=== PATIENT | male | born 1960 | race Caucasian/White ===

== ENCOUNTER 2018-04-05 10:03 | Emergency (ER) | payer MEDICAID, SELFPAY ==
[2018-04-05 10:04] VITALS: BP 157/93; PULSE 87; RESP 17; TEMP 36.4; O2SAT 99; BMI 21.3
--- NOTE | 2018-04-05 10:18 | ED.VISSUMM ---
- ER Visit Summary Date of Service: 04/05/18 Chief Complaint: Dental pain History of Present Illness: The patient is a 57 M who presents with right lower dental pain and swelling that has been getting worse over the past 3 weeks. Patient states she is swallowing purulent material. Patient states the pain radiates to his neck and right ear. Patient denies any fevers. Patient states he has been taking Tylenol and ibuprofen with minimal improvement of his pain. Patient does not have a dentist. Patient is concerned over possible infection. Physical Examination: Vital signs are stable. Patient is afebrile. Patient is in no acute distress. Oral mucosa is pink and moist. There is gingival edema over the right lower first molar area. There is no fluctuance. There is no discharge or drainage. Oropharynx is clear. Tympanic membranes are clear. Neck is supple. Trachea is midline. There is some mild anterior cervical lymphadenopathy noted. The remaining physical exam is within normal limits. Emergency Department Course and Treatment: Patient was given a prescription for Pen-Vee K. Patient was instructed to follow-up with a dentist and 5-7 days. Patient understood and was agreeable with the plan. All questions were answered. Disposition: Discharge home Impression: Infected dental caries This note was generated with [employer] dictation software. It may contain incorrect words, spelling, and punctuation that were not noted in review of the chart prior to signing ED Disposition - Plan for ED Patient: Disposition: Home or Assisted Living Chief Complaint: Dental Diagnosis: Infected dental caries Instructions: ED Abscess Dental Prescriptions: Penicillin V Potassium 500 mg PO 4X/DAY #40 tab Referrals: Christina Humphrey MD [Primary Care Provider] -
== END 2018-04-05 10:35 | disposition home or self-care (01) ==
PROVIDERS: Emergency Provider Emergency Medicine; Family Provider Family Medicine; PCP Family Medicine
DX: K02.9 Dental caries, unspecified (principal); K04.7 Periapical abscess without sinus; K08.89 Other specified disorders of teeth and supporting structures; Z72.0 Tobacco use
CPT/HCPCS: 99282

== ENCOUNTER 2018-04-10 07:23 | Emergency (ER) | payer MEDICAID, SELFPAY ==
[2018-04-10 07:25] VITALS: BP 146/101; PULSE 86; RESP 15; TEMP 36.8; O2SAT 99; BMI 21.2
--- NOTE | 2018-04-10 07:57 | ED.VISSUMM ---
- ER Visit Summary Date of Service: 04/10/18 Chief Complaint: Right-sided head pain, tingling, throat pain History of Present Illness: The patient is a 57 M who was seen on April 05 and diagnosed with dental infection. He was prescribed penicillin. He is not contacted his doctor or dentist. He believes his head pain and throat pain are secondary to failed therapy. He denies fever, chills night sweats. He localizes his head pain to the right parietal area and has associated tingling. He also complains of tingling of his right ear. He denies decreased hearing or ringing in his ears. He states he is having trouble swallowing however he denies drooling and has no change in voice. He denies inability to open or close his mouth completely. He denies photophobia, stiffness of his neck or neck pain. He denies having a rash. He denies having myalgias arthralgias or joint swelling. Physical Examination: Vital signs noted and blood pressure elevated 146/101. Head is atraumatic normocephalic. Pupils are equal round reactive. Extraocular muscles are intact. TMs are pearly white with landmarks noted. Nares patent with no drainage. Posterior pharynx without erythema or exudate. Uvula is midline. There is no dysphonia or dysphasia. Trachea is midline. There is no stridor with auscultation of the neck. There is no TMJ tenderness. There is no trismus. Posterior pharynx remarkable for postnasal drainage. He has significant dental pathology. There is no swelling of the jaw or face. There is no erythema. Heart is regular without murmur, gallop or rub. S1 and S2 are normal. Lungs are clear to auscultation with good movement of air bilaterally. Patient is alert and oriented ?3. Motor is 5 over 5. Sensory is intact. DTRs are symmetric with no clonus or Babinski sign. Cranial 2 through 12 are intact. Cerebellar testing is normal. There are no skin lesions or rash noted. Test Results: None Emergency Department Course and Treatment: Patient was told he needs to follow-up with a dentist regarding his dental symptoms. He was told he has a viral infection and this would need to run its course. Treatment Plan: Symptomatic Disposition: Discharged to home Impression: 1. Acute viral upper respiratory infection 2. Cephalgia 3. Odontalgia 4. Dental caries This note was generated with [employer] dictation software. It may contain incorrect words, spelling, and punctuation that were not noted in review of the chart prior to signing ED Disposition - Plan for ED Patient: Disposition: Home or Assisted Living Chief Complaint: Dental Instructions: ED Tooth Pain, ED URI Viral Referrals: Christina Humphrey MD [Primary Care Provider] - 10-14 Days if not better Additional Instructions: Recommend contacting [facility] or going to the clinic for your dental symptoms.
--- NOTE | 2018-04-10 08:02 | ED.DCSUM_ITS ---
- ER Visit Summary Date of Service: 04/10/18 Chief Complaint: Right-sided head pain, tingling, throat pain History of Present Illness: The patient is a 57 M who was seen on April 05 and diagnosed with dental infection. He was prescribed penicillin. He is not contacted his doctor or dentist. He believes his head pain and throat pain are secondary to failed therapy. He denies fever, chills night sweats. He localizes his head pain to the right parietal area and has associated tingling. He also complains of tingling of his right ear. He denies decreased hearing or ringing in his ears. He states he is having trouble swallowing however he denies drooling and has no change in voice. He denies inability to open or close his mouth completely. He denies photophobia, stiffness of his neck or neck pain. He denies having a rash. He denies having myalgias arthralgias or joint swelling. Physical Examination: Vital signs noted and blood pressure elevated 146/101. Head is atraumatic normocephalic. Pupils are equal round reactive. Extraocular muscles are intact. TMs are pearly white with landmarks noted. Nares patent with no drainage. Posterior pharynx without erythema or exudate. Uvula is midline. There is no dysphonia or dysphasia. Trachea is midline. There is no stridor with auscultation of the neck. There is no TMJ tenderness. There is no trismus. Posterior pharynx remarkable for postnasal drainage. He has significant dental pathology. There is no swelling of the jaw or face. There is no erythema. Heart is regular without murmur, gallop or rub. S1 and S2 are normal. Lungs are clear to auscultation with good movement of air bilaterally. Patient is alert and oriented ?3. Motor is 5 over 5. Sensory is intact. DTRs are symmetric with no clonus or Babinski sign. Cranial 2 through 12 are intact. Cerebellar testing is normal. There are no skin lesions or rash noted. Test Results: None Emergency Department Course and Treatment: Patient was told he needs to follow- up with a dentist regarding his dental symptoms. He was told he has a viral infection and this would need to run its course. Treatment Plan: Symptomatic Disposition: Discharged to home Impression: 1. Acute viral upper respiratory infection 2. Cephalgia 3. Odontalgia 4. Dental caries This note was generated with [employer] dictation software. It may contain incorrect words, spelling, and punctuation that were not noted in review of the chart prior to signing ED Disposition - Plan for ED Patient: Disposition: Home or Assisted Living Chief Complaint: Dental Instructions: ED Tooth Pain, ED URI Viral Referrals: Christina Humphrey MD [Primary Care Provider] - 10-14 Days if not better Additional Instructions: Recommend contacting [facility] clinic or going to the clinic for your dental symptoms.
== END 2018-04-10 08:12 | disposition home or self-care (01) ==
PROVIDERS: Emergency Provider Emergency Medicine; Family Provider Family Medicine; PCP Family Medicine
DX: J06.9 Acute upper respiratory infection, unspecified (principal); R51 Headache; H92.01 Otalgia, right ear; K02.9 Dental caries, unspecified; Z72.0 Tobacco use; Z79.2 Long term (current) use of antibiotics
CPT/HCPCS: 99282

== ENCOUNTER → 2018-04-13 15:23 | Outpatient (CLI) | payer MEDICAID, SELFPAY | PROVIDERS: Family Provider Internal Medicine; PCP Internal Medicine; Visit Provider Physician Assistant Surgical | DX: J02.9 Acute pharyngitis, unspecified (principal) | CPT/HCPCS: 87081 ==

== ENCOUNTER → 2018-05-17 12:54 | Outpatient (CLI) | payer MEDICAID, SELFPAY ==
--- NOTE | 2018-05-17 13:14 | CT_ITS ---
STUDY: CT CHEST/THORAX WITH CONTRAST REASON FOR EXAM: Male, 57 years old. Newly diagnosed malignant neoplasm of the tonsil, throat pain x 2 months, smokes 1/2-1 pack per day. RADIATION DOSAGE (If Supplied By Facility): CTDIvol = ( 12.88 ) mGy, DLP = ( 737.61 ) mGycm TECHNIQUE: Transaxial imaging was performed following intravenous administration of 100mL ml of Isovue 300 contrast material. Multiplanar coronal and sagittal images were reformatted. Individualized dose optimization techniques were used for this CT. COMPARISON: PA and lateral chest x-rays on 4 images October 31, 2016; CT chest with IV contrast September 14, 2016. FINDINGS: There are numerous subpleural blebs in the periphery of the lung apices. A few small emphysematous blebs or other pneumatoceles are also noted in the mid and upper lung zones. No pulmonary infiltrate or mass. There is no demonstrated pleural abnormality. Normal heart and pericardium. There are minor calcifications of the coronary arteries. There is a stable 2.45 x 1.4 x 0.95 cm precarinal lymph node as well as other stable upper normal to borderline enlarged lymph nodes in the subcarinal tissues and aorticopulmonary window. Normal hilar regions. Normal enhanced pulmonary arteries. There is atherosclerotic calcification of the aortic arch, proximal brachiocephalic arteries and, to a lesser degree, the descending thoracic aorta. Mild central depression of the superior aspect of the T7 vertebra is unchanged. There is no demonstrated abnormality of the visualized upper abdomen. CT/Chest WITH Contrast IMPRESSION: 1. No new pulmonary infiltrate or mass. Emphysematous and subpleural blebs are again noted. 2. Stable upper normal to borderline enlarged local mediastinal lymph nodes. No new adenopathy. 3. Atherosclerotic vascular calcifications again noted. 4. Stable central depression of the superior T7 vertebral endplate. Electronically Signed: Avery Martinez MD at 16:46 EDT , Service support ,
--- NOTE | 2018-05-17 13:14 | CT_ITS ---
STUDY: CT SOFT TISSUE NECK WITH CONTRAST REASON FOR EXAM: Male, 57 years old. Malignant neoplasm of the tonsil, throat pain x 2 months. RADIATION DOSAGE (If Supplied By Facility): CTDIvol = ( 12.88 ) mGy, DLP = ( 737.61 ) mGycm TECHNIQUE: The patient was scanned in a multi-detector CT scanner. High resolution transaxial imaging was performed following intravenous administration of 100mL ml of Isovue 300 contrast material. Sagittal and coronal images were reconstructed. Individualized dose optimization techniques were used for this CT. COMPARISON: None. FINDINGS: Normal bilateral parotid glands. Normal bilateral robotics mechanic spaces. Normal bilateral parapharyngeal spaces. There is atherosclerotic calcific plaquing of the visualized thoracic aortic arch and proximal brachiocephalic arteries. Atherosclerotic calcific plaquing with minor narrowing also seen at the right carotid artery bifurcation. Normal bilateral sublingual and submandibular glands and spaces. Normal visualized nasopharynx. Normal retropharyngeal space. Normal perivertebral space. The area of the right faucial tonsil is an irregular area of mildly enhancing, thickened tissue surrounding an irregular collection of fluid and gas bubbles that appears to communicate with the oropharynx. Overall, this measures roughly 5.15 x 2.5 x 2.8 cm. There is a mildly lobulated prominence of the tongue base, but without a discrete mass, suggestive of lymphoid hyperplasia. The visualized cervical lymph nodes (levels I-) are within normal size limits, and maintain normal morphology. There is no demonstrated solid or cystic mass lesion. There is no abnormal contrast enhancement. Normal epiglottis, bilateral vallecula and hypopharynx. The pre-epiglottic and paraglottic adipose spaces are normal. There is a 6.5 mm coarse calcification in the left cricoid cartilage. There is minimal asymmetric thickening of the right vocal cord. There is a dilated appearance of the right piriform sinus compared to the left. Normal subglottic trachea. Normal bilateral lobes of the thyroid gland. There are numerous subpleural blebs in the periphery of the visualized lung apices. Rounded area of mucoperiosteal thickening or sessile mucous inclusion cyst seen in the inferior margin of the right maxillary sinus. Just inferior to this, there is an absent right upper premolar with small gas lucency in the root pocket of the superior alveolar ridge that may reflect local inflammation. Numerous other teeth are also absent. There is multilevel degenerative changes of the cervical spine. CT/Soft Tissue Neck WITH Contrast IMPRESSION: 1. Irregular shaped collection of fluid and gas bubbles surrounded by thickened, mildly enhancing soft tissue in the area of the right faucial tonsil. This may reflect a necrotic malignancy, as per the patient's history, or tonsillar abscess that communicates with the oropharynx, and correlation with direct visualization is advised. 2. Asymmetric dilated appearance of the right piriform sinus compared to the left, likely chronic, and of uncertain etiology and significance. 3. Numerous absent teeth. Small gas lucency is seen in the pocket of a right upper premolar, possibly reflecting local inflammatory change, and there is mucoperiosteal thickening in the adjacent floor of the right maxillary sinus. 4. Atherosclerotic vascular calcifications. No significant stenosis of the carotid artery bifurcations. Electronically Signed: Avery Martinez MD at 16:06 EDT , Service support ,
[2018-05-17 13:44] LABS: Absolute Lymphocyte Count 1.57 X10^3/ul (0.83-4.51); Absolute Neutrophil Count 9.7 X10^3/uL (2.0-7.7); Basophil# 0.02 X10^3/uL; Basophil% 0.2 % (0-1); Eosinophil# 0.15 X10^3/uL; Eosinophils% 1.2 % (0-5); Hematocrit 37.8 % (40-54); Hemoglobin 12.5 g/dl (13.0-16.5); Lymphocyte # 1.57 X10^3/ul (4.0); Lymphocyte % 12.4 % (19-41); Mean Corp Hgb Conc 33.1 g/gl (32-36); Mean Corpuscular Volume 102.7 fL (80-94); Mean Platelet Vol. 9.6 fl (6.2-12.0); Monocyte# 1.21 X10^3/uL; Monocyte% 9.6 % (0-10); Neutrophil # 9.65 X10^3/uL (2.7-7.7); Neutrophil % 76.4 % (47-70); Platelet Count 341 K/mm3 (150-450); RBC Distribution Width CV 12.9 % (11.6-14.6); RBC Distribution Width SD 48.9 fl (35.1-43.9); Red Blood Count 3.68 M/mm3 (4.6-6.2); White Blood Count 12.6 K/mm3 (4.4-11.0)
[2018-05-17 13:45] LABS: POSITIVE COUNT NO; POSITIVE DIFFERENTIAL NO; POSITIVE MORPHOLOGY NO
[2018-05-17 14:15] LABS: Anion Gap 10 (5-15); BUN 14 mg/dL (7-18); BUN/Creat Ratio 14.2 RATIO (10-20); Calcium,Total 9.4 mg/dL (8.5-10.1); Chloride 102 mmol/L (98-107); Creatinine, Serum 0.98 mg/dL (0.70-1.30); EST Glomerular Filtration Rate 84 mL/min (>60); Est Glom Filt Rate - Afr Amer 101 mL/min (>60); Glucose 83 mg/dL (74-106); Potassium 3.9 mmol/L (3.5-5.1); Sodium Level 138 mmol/L (136-145)
== END ==
PROVIDERS: Family Provider Internal Medicine; PCP Internal Medicine; Referring Provider Otolaryngology; Visit Provider Otolaryngology
DX: C09.9 Malignant neoplasm of tonsil, unspecified (principal)
CPT/HCPCS: 36415; 70491; 71260; 80048; 85025; Q9967

== ENCOUNTER → 2018-05-18 13:18 | Outpatient (CLI) | payer MEDICAID, SELFPAY ==
--- NOTE | 2018-05-18 13:21 | EKG12_ITS ---
Test Reason : PRE-OP Blood Pressure : / mmHG Vent. Rate : 082 BPM Atrial Rate : 082 BPM P-R Int : 142 ms QRS Dur : 092 ms QT Int : 362 ms P-R-T Axes : 060 066 049 degrees QTc Int : 422 ms Normal sinus rhythm Normal ECG Confirmed by EZIO TEJADA ([id number]), food editor ALAINA ANDINO ([id number]) on 05/22/2018 9:09:11 AM Referred By: Crow Newsome Confirmed By:EZIO TEJADA
== END ==
PROVIDERS: Family Provider Internal Medicine; PCP Internal Medicine; Referring Provider Otolaryngology; Visit Provider Otolaryngology
DX: C09.9 Malignant neoplasm of tonsil, unspecified (principal)
CPT/HCPCS: 93005

== ENCOUNTER 2018-05-23 07:25 | Day surgery (SDC) | payer MEDICAID, SELFPAY ==
--- NOTE | 2018-05-23 | IMM_PTH ---
PATIENT: ANDREW STANFORD [place] [facility] [place][id number] AGE/SX: 57/M ROOM: RE05/23/[address]: Dr. Crow Newsome MD : 1960 BED: DIS: 05/23/2018 SPEC #: [id number] RECD: 05/25/18 13:50 STATUS: PABLO REQ #: [id number] ALEJANDRA: 05/23/18 00:[address]: Crow Newsome DEPT: IMMUNOHISTOCHEMISTRY RECD BY: Lidia Mckeon ENTERED: 05/25/18 13:52 SP TYPE: IMMUNO OTHR DR: Dr. Blayne Hernandez MD Tissues: C - Tonsil, NOS Procedures: CK5-6 (initial) CK14 (add) DESMIN (add) KI-67 (add) P16 (add) P40 (add) S-100 (add) PHYSICIAN & INSTITUTION [place] [id number] SPECIMEN INFORMATION: Tissue Source: C - Right radical tonsillectomy Clinical Info: Left tonsil mass Specimen Number: [id number] CPT code: 46014, 42080 x6 METHODOLOGY: Deparaffinized sections of prefer/formalin-fixed tissue or PAP/DQ stained slides are incubated with monoclonal/polyclonal antibodies/oligonucleotide probes. Localization is made via biotin free immunoperoxidase method. Appropriate controls are performed and reacted as expected. Results on target cell population are indicated in the following table: RESULTS: ANTIBODY / CLONE RESULT Block C1 P40 (BC28) positive CK5-6 (D5 & 1684) positive CK14 (LL002) positive S-100 (4C4.9) negative Desmin (CE-R-11) negative P16 (E6H4) negative Ki-67 (30-9) positive, moderate These tests were developed and their performance characteristics determined by [facility]. They may not have been cleared or approved by the U.S. Food and Drug Administration. The FDA has determined that such clearance or approval is not necessary. INTERPRETATION: C. 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 Case has been reviewed in consultation with Dr. Beaver who concurs with the above diagnosis. IDC:[email or web address] AM:brigida 05/30/18
[2018-05-23 07:56] VITALS: BP 102/72; PULSE 88; RESP 14; TEMP 37; O2SAT 97; BMI 20.6
--- NOTE | 2018-05-23 08:55 | TONS_PTH ---
PATIENT: ANDREW STANFORD LOC: [facility] – [place] U#:[id number] AGE/SX: 57/M ROOM: RE05/23/[address]: Dr. Crow Newsome MD : 1960 BED: DIS: 05/23/2018 SPEC #: [id number] RECD: 05/23/18 09:29 STATUS: PABLO CRISTINA #: [id number] ALEJANDRA: 05/23/18 08:[address]: Crow Newsome DEPT: SURGICAL PATHOLOGY RECD BY: Lidia Mckeon ENTERED: 05/23/18 11:30 SP TYPE: TONSILS OTHR DR: Dr. Blayne Hernandez MD Tissues: A - Tonsil, NOS B - Tonsil, NOS C - Tonsil, NOS Procedures: Frozen Section (charge) Surgery Specimen Level III Surgery Specimen Level IV HEADER OPERATION: Tonsillectomy PRE-OP DIAGNOSIS: Left tonsil mass TISSUE SUBMITTED: A - Right tonsil mass for frozen section at 0924, B - Left tonsil, C - Right radical tonsillectomy FROZEN SECTION DIAGNOSIS A. Right tonsil mass, biopsy: Invasive squamous cell carcinoma. AM:brigida 05/23/18 MICROSCOPIC DIAGNOSIS A. Right tonsil mass, biopsy: Invasive moderate to poorly squamous cell carcinoma. B. Left tonsil, tonsillectomy: Benign lymphoid follicular hyperplasia, mild. No evidence of malignancy. C. Right tonsil, radical tonsillectomy: Invasive moderate to poorly squamous cell carcinoma with mucosal ulceration. See Comment. AM:brigida 05/25/18 COMMENT C. Immunohistochemistry ([id number]) supports the above diagnosis. The carcinoma extends to the inked superior, inferior and posterior margins of excision. There is multifocal perineural invasion by carcinoma and the carcinoma focally involves skeletal muscle tissue. Case has been reviewed in consultation with Dr. Beaver who concurs with the above diagnosis. IDC:SJ MICROSCOPIC DESCRIPTION Slides are reviewed. GROSS DESCRIPTION A - Received fresh for frozen section consultation labeled with the patient's name is a specimen designated right tonsil mass. The specimen consists of a single fragment of pink-wooten soft tissue measuring 0.6 x 0.2 x 0.2 cm. The specimen is totally submitted in one block for frozen section consultation. / AM:brigida 05/23/18 B - Received in formalin labeled with the patient's name and designated left tonsil. The specimen consists of a tonsil that weighs 1.5 gm and measures 3 x 1.5 x 1 cm. The external surface is pink-wooten, smooth, glistening and somewhat lobulated. Focally it is hemorrhagic, granular and bears cautery artifact. Serial cross sections through the tonsil reveal normal tonsillar architecture. The entire specimen is submitted in two cassettes. / SJ: 05/23/18 C - Received in formalin labeled with the patient's name and designated right radical tonsillectomy. The specimen consists of a tonsil measuring 6 x 4 x 2.5 cm and weighing 18 gm. The specimen is differentially inked as follows: superior - blue, inferior - green and posterior - black. The specimen had previously been bisected by the surgeon. The cut surfaces are firm, wooten-white in color. The specimen is serially sectioned and submitted in its entirety in ten cassettes. / AM: 05/24/18 TC: 0 CPT: 80204 x2, 39710, 53142, 77523
--- NOTE | 2018-05-23 10:04 | OP.PCM_ITS ---
Problem List (1) Malignant neoplasm of tonsil Status: Chronic Report of Operation Date of Procedure: 05/23/18 Pre-Operative Diagnosis: Malignant tumor of right tonsil Post-Operative Diagnosis: same Surgery/Procedure Performed:: Radical right tonsillectomy, left tonsillectomy Description of Surgical Findings:: Tray is a 57-year-old male who presents with a large ulcerated painful lesion of the right tonsil. He suffered referred otalgia on that side and foul- smelling quality with discharge. Examination showed a large ulcerated lesion of the right tonsil and CT scan confirmed a eroding mass involving the right tonsil that extended deeply into the surrounding parapharyngeal musculature. Operative investigation with biopsy and radical tonsillectomy was offered for both identification and treatment and the patient was eager to proceed. The risks, alternatives, potential benefits, and complications were discussed at length and any questions answered to the patient and/or caregiver's satisfaction. Witnessed informed consent was obtained in the office, and the patient and/or caregiver was agreeable to proceed. Procedure went as follows: The patient was identified in the preoperative holding, brought to the operating room, was placed under general anesthesia and intubated. When appropriate anesthesia was obtained, the head of bed was rotated and the patient prepped and draped in usual sterile fashion. A Jaqueline Abdirahman mouthgag was then placed and the patient suspended from the Akers stand. The oral cavity examined and is noted to have 2+ cryptic tonsillar hypertrophy on the left side. On the right side, the tonsil was involved with a large ulcerating indurated lesion. This lesion extended inferiorly to the lingual tonsils and tongue base and superiorly into the nasopharynx. This appeared to spare the eustachian tube opening. Palpation revealed this to be affixed to the pharyngeal musculature however did not appear to extend deeply into the perivascular sheath. Beginning on the left side the right tonsil was then grasped with a curved tenaculum and dissected from the underlying capsule with monopolar cautery. This was then sent as specimen. A radical tonsillectomy was then carried out on the right side after biopsy of the lesion confirmed invasive squamous cell carcinoma. The edge of the palpable mass was then grasped at the midportion and using monopolar cautery a plane developed between the tumor and the deeper pharyngeal tissues. This was followed superiorly where the lateral aspect of the soft palate extending into the nasopharynx involved with the lesion were then excised. The mass was then developed inferiorly along the parapharyngeal plane and excised along the posterior pharyngeal wall and extending onto the tongue base where this was additionally resected. This was then sent as pathologic specimen. The deep and middle portion of the tumor invaded into the pharyngeal fatty tissues which limited development of a wide surgical margin with suspected residual disease at this location although all visible tumor was resected with the primary specimen. The carotid artery was not exposed during the course of the dissection and no residual flap was felt to be necessary. The oral cavity was then copiously irrigated with saline solution and suctioned to clear any residual blood and debris. Inspection of the surgical excision site revealed no point bleeding. The patient was then returned to anesthesia, revived and extubated having tolerated the procedure well. Type of Anesthesia:: General Anesthesiologist: Floyd Richardson Special Medications: none Specimen's removed: right tonsillar mass with radical tonsillectomy, left tonsil Drains: none Estimated Blood Loss (mL): 25 mL Fluids Replaced: 1200 mL Grafts/Implants Used: none - Complications none - Admit VTE Documentation VTE Present on Admission: No VTE Mechan Device Prophylaxis: SCD's VTE Pharm Prophylaxis ordered?: No
--- NOTE | 2018-05-23 10:07 | DCINST_ITS ---
Discharge Activity: Return to Normal Activity, May not drive while taking narcotic pain medications. Call your doctor if your incision/area has: Sudden Increased Bleeding Call your doctor if you observe: Fever of 101 or Higher, Uncontrolled pain Allergies/Adverse Reactions: Allergies bee venom protein (honey bee) Allergy (Verified 05/21/18 16:12) Angioedema Medications to take at Discharge omega-3 fatty acids 1,000 mg capsule 1,000 mg PO DAILY 04/13/18 Acetaminophen [Tylenol Extra Strength] 500 - 1,000 mg PO 4X/DAY 05/21/18 Aspirin/Acetaminophen/Caffeine [Headache Relief Tablet] 1 each PO PRN PRN 05/21/18 Orders to be completed after discharge: 12 Lead EKG [[facility]] Time Frame: 05/23/18, Location: None Selected Primary Care Physician: Blayne Hernandez MD [Primary Care Provider] - Test Results: Test results from this visit will be discussed in further detail at your follow- up appointment, if applicable. Please Follow Up With: Crow Newsome MD When: 2 weeks
[2018-05-23 10:10] VITALS: BP 102/72; BP 145/67; PULSE 79; RESP 16; TEMP 36.5; O2SAT 100
[2018-05-23 10:15] VITALS: BP 102/72; BP 149/89; PULSE 75; RESP 18; O2SAT 99
[2018-05-23 10:31] VITALS: BP 102/72; BP 153/90; PULSE 75; RESP 18; TEMP 36.6; O2SAT 100
[2018-05-23] MEDS: Ibuprofen 100 MG/5 ML UDC 400 MG PO (10:49)
[2018-05-23] MEDS: Acetaminophen 650 MG/20 ML UDC 500 MG PO (10:49)
[2018-05-23 12:23] VITALS: BP 102/72; BP 127/80; PULSE 76; RESP 16; TEMP 37; O2SAT 99
== END 2018-05-23 12:29 | disposition home or self-care (01) ==
LOC: SDC 07:27 → AC 07:27
PROVIDERS: Family Provider Internal Medicine; PCP Internal Medicine; Referring Provider Otolaryngology; Visit Provider Otolaryngology
PROC: (CPT 42826; principal; 2018-05-23 08:40)
DX: C09.8 Malignant neoplasm of overlapping sites of tonsil (principal); J35.1 Hypertrophy of tonsils; R59.0 Localized enlarged lymph nodes; F17.200 Nicotine dependence, unspecified, uncomplicated
CPT/HCPCS: 00170; 42826; 42842; 88304; 88305; 88331; 88341; 88342; J7120; J2405

== ENCOUNTER 2018-05-29 01:21 | Observation (INO) | payer MEDICAID, SELFPAY ==
[2018-05-29 01:22] VITALS: BP 119/74; PULSE 90; RESP 18; TEMP 36.6; O2SAT 98; BMI 19.9
[2018-05-29 02:01] LABS: Absolute Lymphocyte Count 1.44 X10^3/ul (0.83-4.51); Absolute Neutrophil Count 5.2 X10^3/uL (2.0-7.7); Basophil# 0.02 X10^3/uL; Basophil% 0.3 % (0-1); Eosinophil# 0.31 X10^3/uL; Eosinophils% 3.9 % (0-5); Hematocrit 35.5 % (40-54); Hemoglobin 11.8 g/dl (13.0-16.5); Lymphocyte # 1.44 X10^3/ul (4.0); Lymphocyte % 18.1 % (19-41); Mean Corp Hgb Conc 33.2 g/gl (32-36); Mean Corpuscular Hgb 33.5 pg (27.0-32.0); Mean Corpuscular Volume 100.9 fL (80-94); Mean Platelet Vol. 9.4 fl (6.2-12.0); Monocyte# 0.99 X10^3/uL; Monocyte% 12.4 % (0-10); Neutrophil % 65.2 % (47-70); POSITIVE COUNT NO; POSITIVE DIFFERENTIAL NO; POSITIVE MORPHOLOGY NO; Platelet Count 367 K/mm3 (150-450); RBC Distribution Width CV 12.4 % (11.6-14.6); RBC Distribution Width SD 45.6 fl (35.1-43.9); Red Blood Count 3.52 M/mm3 (4.6-6.2)
[2018-05-29 02:10] LABS: International Normalized Ratio 1.1; Prothrombin Time (Protime)PT. 13.8 SECONDS (11.7-14.9)
[2018-05-29 02:11] LABS: Partial Thromboplast Time 33.8 Seconds (24.1-36.2)
[2018-05-29 02:16] LABS: Anion Gap 9 (5-15); BUN 21 mg/dL (7-18); BUN/Creat Ratio 24.8 RATIO (10-20); Chloride 102 mmol/L (98-107); Creatinine, Serum 0.85 mg/dL (0.70-1.30); EST Glomerular Filtration Rate 100 mL/min (>60); Est Glom Filt Rate - Afr Amer 120 mL/min (>60); Estimated Creatinine Clearance 85.14 ml/min; Glucose 85 mg/dL (74-106); Potassium 3.7 mmol/L (3.5-5.1); Sodium Level 138 mmol/L (136-145)
[2018-05-29 02:53] VITALS: BMI 19.1; BMI 19.3
[2018-05-29 03:22] VITALS: BP 139/73; PULSE 77; RESP 18; TEMP 36.3; O2SAT 100
--- NOTE | 2018-05-29 07:49 | HP.PCM_ITS ---
Problem List (1) Malignant neoplasm of tonsil Status: Chronic (2) Oropharyngeal bleeding Status: Acute History of Present Illness Date of Admission: 05/29/18 Chief Complaint: bleeding from throat after radical tonsillectomy The patient is a 57 year old M who presents 1 week status post 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 He had been seen in the office one day prior with complaints of some blood-tinged sputum however no active bleeding, clot, or other significant abnormality was noted although there was some bloody staining of the secretions this was of no significant juliana ntity and reassurance was offered. He presented to the emergency department with complaints of again bleeding from the oropharynx. With consultation with the ER physician, the bleeding was not felt to be of a severe quantity although some blood clotting was expectorated and admission for observation with consideration of operative control of hemorrhage should this persist was advised and he was admitted for overnight observation. He reports that he continues to suffer throat pain although this is improving. He continues to have dysphagia for solids but has been tolerating liquids. He denies any trauma to the throat, bleeding tendencies, or anticoagulation therapy. He had otherwise been in his usual state of health. [] Past Medical History Past Medical History (Chronic Problems): Chronic Problems (Last Updated 04/13/18 @ 11:01 by Melissa Snell) Malignant neoplasm of tonsil (Chronic) Medical History: Medical History (Last Updated 04/13/18 @ 11:01 by Melissa Snell) Asthma J45.909 Migraines G43.909 HTN (hypertension) I10 Allergies bee venom protein (honey bee) Allergy (Verified 05/29/18 01:22) Angioedema Home Medications: Ambulatory Orders Medication Instructions Recorded RX: Aspirin/Acetaminophen/Caffeine 1 each PO PRN PRN 05/21/18 [Headache Relief Tablet] RX: Acetaminophen Liquid [Tylenol 500 mg PO Q4H PRN PRN udc 05/23/18 Liquid] RX: Ibuprofen Liquid [Motrin 400 mg PO Q8H PRN PRN udc 05/23/18 Liquid] Acetaminophen/Codeine Liquid 12.5 ml PO Q4H PRN PRN 05/29/18 [Tylenol W/Cod Liq 300-30MG/12.5ML] Surgical History: Surgical History (Last Updated 04/25/18 @ 15:36 by Nava Francis) History of hand surgery Z98.890 Hx of foot surgery Z98.890 Smoking Status: Current every day smoker Tobacco Use: Cigarettes Review of Systems Constitutional: Reports: Anorexia. Denies: Fever, Night Sweats Eyes: Denies: Double vision, Redness, Vision Change HEENT: Reports: Difficulty Swallowing, Sore Throat. Denies: Difficulty Hearing, Hearing Changes, Nasal bleeding Cardiovascular: Denies: Chest Pain, Claudication Respiratory: Reports: Hemoptysis. Denies: Cough Gastrointestinal: Denies: Abdominal Pain Genitourinary: Denies: Dysuria VTE Information - Inpt Only VTE Present on Admission: No VTE Pharm Prophylaxis ordered?: No Reason prophylaxis not ordered:: Medical Contraindication - bleeding Patient Problems: Active and Suspected Problems (Last Updated 04/13/18 @ 11:01 by Melissa Snell) Oropharyngeal bleeding (Acute) - Physical Exam General: Alert, Oriented x3 HEENT: Atraumatic, PERRLA Oral: Moist Mucosa, - - eshcar bilateral tonsillar fossa, blood clot on right reported by ED Neck: Supple Psych/Mental Status: Alert and oriented to time, place, person, mood and affect Vital Signs Temp Pulse Resp BP Pulse Ox 97.4 F L 77 18 139/73 H 100 05/29/18 03:22 05/29/18 03:22 05/29/18 03:22 05/29/18 03:22 05/29/18 03:22 Oxygen Delivery Method Room Air Weight: 58.8 kg Body Mass Index (BMI) 19.1 Finger Stick Blood Glucose 108 Intake and Output for Last 24 Hours 05/27/18 05/28/18 05/29/18 23:59 23:59 23:59 Intake Total 240 / 240 Balance 240 / 240 Laboratory Tests Past 24 Hrs 05/29/18 05/29/18 05/29/18 01:50 01:50 01:50 WBC 8.0 RBC 3.52 L Hgb 11.8 L Hct 35.5 L MCV 100.9 H MCH 33.5 H MCHC 33.2 RDW 12.4 RDW Differential 45.6 H Plt Count 367 MPV 9.4 Immature Gran % (Auto) 0.100 Neut % (Auto) 65.2 Lymph % (Auto) 18.1 L [place] % (Auto) 12.4 H Eos % (Auto) 3.9 Baso % (Auto) 0.3 Absolute Neuts (auto) 5.2 Absolute Lymphs (auto) 1.44 Total Counted Not Reportable PT 13.8 INR 1.1 APTT 33.8 Sodium 138 Potassium 3.7 Chloride 102 Carbon Dioxide 27.0 Anion Gap 9 BUN 21 H Creatinine 0.85 Estim Creat Clear Calc 85.14 Est GFR (MDRD) Af Amer 120 Est GFR (MDRD) Non-Af 100 BUN/Creatinine Ratio 24.8 H Glucose 85 Calcium 9.0 Assessment/Plan All Active Problems (Last Updated 04/13/18 @ 11:01 by Melissa Snell) Oropharyngeal bleeding (Acute) Painful swallowing (Acute) Pharyngitis, acute (Acute) Infected dental caries (Acute) Right foot pain (Acute) Arthritis of foot, right (Acute) Displaced fracture of calcaneus (Acute) Tray is a 57-year-old male status post tonsillectomy for squamous cell carcin jann who has a second presentation for complaints of oropharyngeal bleeding. He was admitted for observation with consideration of operative control of bleeding should this persist as well as IV hydration and monitoring.
--- NOTE | 2018-05-29 07:51 | PCM.PROGNOTE ---
Patient Problems: Active and Suspected Problems (Last Updated 04/13/18 @ 11:01 by Melissa Snell) Oropharyngeal bleeding (Acute) Subjective: The patient reports he continues to suffer throat with sore throat however has had no further bleeding overnight with observation. He reports that he expectorated blood clots for about 1 hour in the candy maker helper but this is not continued and is tolerating clear liquids satisfactorily. Objective: The patient is well-appearing with moist mucous membranes. His skin turgor is normal. Examination oropharynx shows tonsillar fossa with a sharp but no active bleeding, blood staining, or clots. He does have a bedside container which does not have any significant bloody expectorated contents. He expresses desire for discharge to home. - Physical Exam General: Alert, Oriented x3 HEENT: Atraumatic, PERRLA Oral: Moist Mucosa, - - Tonsillar eschar present without bleeding or blood clots Lungs: Clear to auscultation Cardiovascular: Regular rate, Regular Rhythm Skin: No rashes, No breakdown Psych/Mental Status: Alert and oriented to time, place, person, mood and affect Vital Signs Temp Pulse Resp BP Pulse Ox 97.4 F L 77 18 139/73 H 100 05/29/18 03:22 05/29/18 03:22 05/29/18 03:22 05/29/18 03:22 05/29/18 03:22 Oxygen Delivery Method Room Air Weight: 58.8 kg Body Mass Index (BMI) 19.1 Finger Stick Blood Glucose 108 Intake and Output for Last 24 Hours 05/27/18 05/28/18 05/29/18 23:59 23:59 23:59 Intake Total 240 / 240 Balance 240 / 240 Laboratory Tests Past 24 Hrs 05/29/18 05/29/18 05/29/18 01:50 01:50 01:50 WBC 8.0 RBC 3.52 L Hgb 11.8 L Hct 35.5 L MCV 100.9 H MCH 33.5 H MCHC 33.2 RDW 12.4 RDW Differential 45.6 H Plt Count 367 MPV 9.4 Immature Gran % (Auto) 0.100 Neut % (Auto) 65.2 Lymph % (Auto) 18.1 L [place] % (Auto) 12.4 H Eos % (Auto) 3.9 Baso % (Auto) 0.3 Absolute Neuts (auto) 5.2 Absolute Lymphs (auto) 1.44 Total Counted Not Reportable PT 13.8 INR 1.1 APTT 33.8 Sodium 138 Potassium 3.7 Chloride 102 Carbon Dioxide 27.0 Anion Gap 9 BUN 21 H Creatinine 0.85 Estim Creat Clear Calc 85.14 Est GFR (MDRD) Af Amer 120 Est GFR (MDRD) Non-Af 100 BUN/Creatinine Ratio 24.8 H Glucose 85 Calcium 9.0 Medical Necessity - Tobacco Use Smoking Status: Current every day smoker Tobacco Use: Cigarettes Assessment/Plan All Active Problems (Last Updated 04/13/18 @ 11:01 by Melissa Snell) Oropharyngeal bleeding (Acute) Painful swallowing (Acute) Pharyngitis, acute (Acute) Infected dental caries (Acute) Right foot pain (Acute) Arthritis of foot, right (Acute) Displaced fracture of calcaneus (Acute) Tray presents for repeat assessment of complaints of oropharyngeal bleeding. This appears to subsided without surgical intervention. I see no evidence of further bleeding nor do I see any blood clot to suggest threatened future bleeding. We have discussed that he remains at risk for bleeding as this heals particularly given the extensive nature of his surgical resection and his malignancy. He desires to go home although I have offered him observation over the day to ensure complete resolution of bleeding. As he is aware of this risk and has been prompting presentation for complaints of bleeding I am agreeable to discharge and he will return should he have any further bleeding again for consideration of operative treatment.
--- NOTE | 2018-05-29 07:55 | DCINST_ITS ---
- Discharge Diagnoses Current Active Problems: Current Active and Chronic Problems (Last Updated 04/13/18 @ 11:01 by Melissa Snell) Oropharyngeal bleeding (Acute) Your food should be the consistency of: Mechanical soft (ground) Your liquids should be the consistency of: Regular/Thin Discharge Activity: Return to Normal Activity, May not drive while taking narcotic pain medications. Call your doctor if your incision/area has: Sudden Increased Bleeding Call your doctor if you observe: Fever of 101 or Higher, Uncontrolled pain Allergies/Adverse Reactions: Allergies bee venom protein (honey bee) Allergy (Verified 05/29/18 01:22) Angioedema Medications to take at Discharge Aspirin/Acetaminophen/Caffeine [Headache Relief Tablet] 1 each PO PRN PRN 05/21/18 Acetaminophen Liquid [Tylenol Liquid] 500 mg PO Q4H PRN PRN udc 05/23/18 Ibuprofen Liquid [Motrin Liquid] 400 mg PO Q8H PRN PRN udc 05/23/18 Acetaminophen/Codeine Liquid [Tylenol W/Cod Liq 300-30MG/12.5ML] 12.5 ml PO Q4H PRN PRN 05/29/18 Primary Care Physician: Blayne Hernandez MD [Primary Care Provider] - Test Results: Test results from this visit will be discussed in further detail at your follow- up appointment, if applicable. Please Follow Up With: Crow Newsome MD When: 1 week
--- NOTE | 2018-05-29 08:15 | ED.DCSUM_ITS ---
- ER Visit Summary Date of Service: 05/29/18 Chief Complaint: Postoperative bleeding History of Present Illness: The patient is a 57 M presenting for evaluation secondary to postoperative bleeding. Patient had a tonsillectomy and cancerous tumor removed on Monday. Patient states over the course of the weekend he started to have bleeding issues. He reports that he has had a gradual increase in bleeding since yesterday. He states he was seen by his surgeon yesterday, and was recommended to continue conservative management. Tonight patient states that every time he is laying flat he is coughing up a large clots. Patient does endorse that he is feeling somewhat lightheaded associated with this. He is not on any sort of anticoagulants. Physical Examination: Vital signs within normal limits. Cachectic appearing male not in physiologic distress, but perpetually spitting up and/or coughing up blood. Oral exam shows clots that seem to be predominantly on the left side of the patient's oropharynx with postoperative changes noted. Remainder the physical otherwise unremarkable. Test Results: CBC chemistry and coagulation panels are pending Emergency Department Course and Treatment: Patient presented for evaluation secondary to postoperative bleeding. I discussed patient's case with his surgeon, and the patient currently is not at risk for airway compromise but is spitting up large clots and we do feel that the patient likely requires admission for observation and will be taken to the operating room for cautery in the morning. She was admitted under Dr. Newsome. Disposition: Admission Impression: 1. Postoperative bleeding This note was generated with [employer] dictation software. It may contain incorrect words, spelling, and punctuation that were not noted in review of the chart prior to signing ED Disposition - Plan for ED Patient: Disposition: Acute Care [facility] Chief Complaint: Other, Pain/Inj
[2018-05-29 08:19] VITALS: O2SAT 98
[2018-05-29 08:28] VITALS: BP 109/76; PULSE 98; RESP 20; TEMP 36.7; O2SAT 100
== END 2018-05-29 08:00 | disposition home or self-care (01) ==
LOC: ED 01:43 → MS3 02:29
PROVIDERS: Admitting Provider Otolaryngology; Emergency Provider Emergency Medicine; Family Provider Internal Medicine; PCP Internal Medicine; Visit Provider Otolaryngology
DX: K91.840 Postprocedural hemorrhage of a digestive system organ or structure following a digestive system procedure (principal); Y83.8 Other surgical procedures as the cause of abnormal reaction of the patient, or of later complication, without mention of misadventure at the time of the procedure; C09.9 Malignant neoplasm of tonsil, unspecified; I10 Essential (primary) hypertension; J45.909 Unspecified asthma, uncomplicated; G43.909 Migraine, unspecified, not intractable, without status migrainosus; F17.210 Nicotine dependence, cigarettes, uncomplicated; R64 Cachexia; Z68.1 Body mass index [BMI] 19.9 or less, adult
CPT/HCPCS: 80048; 85025; 85610; 85730; 99218; 99283; 99406; A4216; G0378

== ENCOUNTER 2018-06-20 05:39 | Day surgery (SDC) | payer MEDICAID, SELFPAY ==
[2018-06-12 10:03] VITALS: BMI 20.7
[2018-06-18 14:23] VITALS: BMI 19.8
[2018-06-20] VITALS (7 sets, daily range): BP systolic 120–130; BP diastolic 71–89; PULSE 64–86; RESP 14–16; TEMP 35.8–36.9; O2SAT 99–100
--- NOTE | 2018-06-20 | IMM_PTH ---
PATIENT: ANDREW STANFORD LOC: EN U#:[id number] AGE/SX: 58/M ROOM: RE06/20/[address]: Dr. Sarthak Alicea MD : 1960 BED: DIS: 06/20/2018 SPEC #: [id number] RECD: 06/21/18 12:11 STATUS: PABLO REMarta #: [id number] ALEJANDRA: 06/20/18 00:[address]: Sarthak Alicea DEPT: IMMUNOHISTOCHEMISTRY RECD BY: Lidia Mckeon ENTERED: 06/21/18 12:12 SP TYPE: IMMUNO OTHR DR: Dr. Blayne Hernandez MD Tissues: A - Stomach, NOS Procedures: H Pylori (initial) PHYSICIAN & INSTITUTION [place] [id number] SPECIMEN INFORMATION: Tissue Source: A - Antral biopsy Clinical Info: Malignant neoplasm of tonsil Specimen Number: [id number] CPT code: 48408 METHODOLOGY: Deparaffinized sections of prefer/formalin-fixed tissue or PAP/DQ stained slides are incubated with monoclonal/polyclonal antibodies/oligonucleotide probes. Localization is made via biotin free immunoperoxidase method. Appropriate controls are performed and reacted as expected. Results on target cell population are indicated in the following table: RESULTS: ANTIBODY / CLONE RESULT Block A H Pylori (polyclonal) negative These tests were developed and their performance characteristics determined by [facility]. They may not have been cleared or approved by the U.S. Food and Drug Administration. The FDA has determined that such clearance or approval is not necessary. INTERPRETATION: A. Antral biopsy: Negative for Helicobacter pylori organisms. SJ:brigida 06/21/18
[2018-06-20] MEDS: Cefazolin 2 GM in 0.9% Normal Saline 100 ML IV (07:17)
--- NOTE | 2018-06-20 07:30 | EGD_PTH ---
PATIENT: ANDREW STANFORD LOC: EN U#:[id number] AGE/SX: 58/M ROOM: RE06/20/[address]: Dr. Sarthak Alicea MD : 1960 BED: DIS: 06/20/2018 SPEC #: [id number] RECD: 06/20/18 08:55 STATUS: PABLO CRISTINA #: [id number] ALEJANDRA: 06/20/18 07:[address]: Sarthak Alicea DEPT: SURGICAL PATHOLOGY RECD BY: Isa Ward ENTERED: 06/20/18 11:15 SP TYPE: EGD BIOPSY OT DR: Dr. Blayne Hernandez MD Tissues: A - Gastric mucous membrane B - Esophageal mucous membrane Procedures: Surgery Specimen Level II Surgery Specimen Level IV Alcian Blue/PAS (control) HEADER OPERATION: Insertion, vascular Port/PEG tube placement PRE-OP DIAGNOSIS: Malignant neoplasm of tonsil TISSUE SUBMITTED: A. Antral biopsy, B. Distal esophageal biopsy MICROSCOPIC DIAGNOSIS A. Antral biopsy: Mild gastritis. B. Distal esophageal biopsy: Fragments of gastric mucosa with intestinal metaplasia (goblet cell metaplasia) consistent with Stein's esophagus. Focal acute and chronic inflammation. Negative for dysplasia. See comment. SJ:rg 06/21/18 COMMENT A. The results of immunohistochemistry for Helicobacter pylori will be reported separately ([id number]). B. Alcian blue/PAS stain with matched control is used in the evaluation of the specimen. MICROSCOPIC DESCRIPTION Slides are reviewed. A. The specimen shows fragments of gastric mucosa with chronic inflammatory cell infiltrates in the lamina propria consisting of lymphocytes and plasma cells, consistent with mild chronic gastritis. GROSS DESCRIPTION A - Received in fixative is one container labeled with the patient's name and designated antral biopsy. The specimen consists of one irregular fragment of light wooten soft tissue that measures 0.2 x 0.1 x 0.1 cm. The specimen is totally submitted in one cassette. B - Received in fixative is one container labeled with the patient's name and designated distal esophageal biopsy. The specimen consists of two irregular fragments of light wooten soft tissue that in aggregate measure 0.5 x 0.3 x 0.1 cm. The specimen is totally submitted in one cassette. / JABIER:brigida 06/20/18 TC:3 CPT: 80199 x2, 15345
[2018-06-20] MEDS: Bupivacaine 0.5% PF 10 ML VIAL (08:04)
--- NOTE | 2018-06-20 08:33 | DCINST_ITS ---
Discharge Diet: Light diet - advance as tolerated - if you have questions about your diet instructions, please talk to you doctor. Discharge Activity: May Not Drive - for 1 week or while taking narcotic pain medicine. Lifting Restrictions: 10 pounds Call your doctor if your incision/area has: Continuous Slow Oozing, Sudden Increased Bleeding, Increased Pain/ Swelling, Increased Redness, Foul Smelling Discharge Call your doctor if you observe: Fever of 101 or Higher Suture Line Care: Avoid Pulling/Pushing, Avoid Pinching/Bending Additional Dressing/Incision Instructions:: You may leave the plastic dressings on your right chest and neck for 3 days. You may then remove them and leave the Steri-Strips on for an additional 1 week. The PEG tube site can be cleansed with a Q-tip and peroxide and dry gauze dressing daily. Flush the PEG tube with 30 cc or 1 ounce of tap water each 4-6 hours. Nutritional supplementation via your PEG tube as per nutrition therapy and hematology oncology Allergies/Adverse Reactions: Allergies bee venom protein (honey bee) Allergy (Verified 06/19/18 13:14) Angioedema Medications to take at Discharge Hydrocodone Bitart/Apap 5-325 [[place] 5MG-325MG] 1 - 2 tablet PO Q4H PRN PRN 06/19/18 Ibuprofen 400 mg PO PRN PRN 06/19/18 Primary Care Physician: Blayne Hernandez MD [Primary Care Provider] - Test Results: Test results from this visit will be discussed in further detail at your follow- up appointment, if applicable. Please Follow Up With: Sarthak Alicea MD - [phone] When: Call to make an appointment to be seen in about 10 days.
--- NOTE | 2018-06-20 08:39 | PCM.OPRPT ---
Problem List (1) Malignant neoplasm of tonsil Status: Chronic Report of Operation Date of Procedure: 06/20/18 Pre-Operative Diagnosis: tonsillar cancer Post-Operative Diagnosis: same Surgery/Procedure Performed:: right internal jugular port placement Description of Surgical Findings:: ancef 2 gm given IV. Time out and informed consent. Right neck and chest prepped. U/S used to identify right IJ which was treated with 1% lidocaine and 0.5% marcaine. total 20cc. Right IJ accessed with U/S and micropuncture, and changed to 0.35 j wire. Pocket created and tubing tunneled. Fluoro used to help guide placement of wire. Catheter placement and sheath removed. Tip placed at SVC atrial junction. Tubing attached to port. Port site closed with 3.0 vicryl. Neck site closed with 5.0 vicryl. Port accessed and aspirated and flushed with saline then heparin. Steri strips and telfa opcites. Well tolerated. To RR satis. Stat portable CXR pending Specimens none. Drains none. Blood loss minimal. RShravan Type of Anesthesia:: Local MAC Anesthesiologist: Festus Trivedi
--- NOTE | 2018-06-20 08:50 | RAD_ITS ---
STUDY: X-RAY CHEST REASON FOR EXAM: Male, 58 years old. Port placement. TECHNIQUE: Single AP portable view of the chest. COMPARISON: Comparison is made with prior examination dated October 31, 2016. FINDINGS: A right-sided nessa catheter has been placed. The tip is in the proximal portion of the superior vena cava. Hyperinflation. There is a questionable 1.8 cm x 2.3 cm nodule in the medial aspect of the right lower lobe. There is no demonstrated pleural abnormality. Normal size heart. Normal mediastinum and shanelle. Normal visualized pulmonary arteries. Normal visualized aortic arch and descending thoracic aorta. Normal visualized thoracic spine. Normal visualized ribs, clavicles, and shoulders. There is no demonstrated abnormality of the visualized soft tissue structures of the upper abdomen. RAD/CXR for Line Placement IMPRESSION: The tip of the right portacatheter is in the proximal portion of the superior vena cava. Hyperinflation. Questionable 1.8 cm x 2.3 cm nodule in the medial aspect of the right lower lobe. Electronically Signed: Dominik Chaidez MD at 10:25 EST Tel [phone], Service support ,
--- NOTE | 2018-06-20 09:04 | OP.ENDO_ITS ---
Patient Name: Tray Giron Procedure Date: 06/20/2018 8:56 AM Date of : 1960 Age: 58 Procedure: Upper GI endoscopy Indications: Place PEG because patient is unable to eat Providers: Sarthak Alicea MD Referring MD: Sarthak Alicea MD Medicines: See the Anesthesia note for documentation of the administered medications Complications: No immediate complications. Procedure: Pre-Anesthesia Assessment: - Prior to the procedure, a History and Physical was performed, and patient medications and allergies were reviewed. The patient's tolerance of previous anesthesia was also reviewed. The risks and benefits of the procedure and the sedation options and risks were discussed with the patient. All questions were answered, and informed consent was obtained. Prior Anticoagulants: The patient has taken no previous anticoagulant or antiplatelet agents. ASA Grade Assessment: II - A patient with mild systemic disease. After reviewing the risks and benefits, the patient was deemed in satisfactory condition to undergo the procedure. After obtaining informed consent, the endoscope was passed under direct vision. Throughout the procedure, the patient's blood pressure, pulse, and oxygen saturations were monitored continuously. The upper GI endoscopy was accomplished without difficulty. The patient tolerated the procedure well. Findings: LA Grade A (one or more mucosal breaks less than 5 mm, not extending between tops of 2 mucosal folds) esophagitis with no bleeding was found 40 cm from the incisors. Biopsies were taken with a cold forceps for histology. A small hiatal hernia was present. Diffuse mildly erythematous mucosa without bleeding was found in the gastric antrum. Biopsy obtained The examined duodenum was normal. Diffuse mildly erythematous mucosa without bleeding was found in the gastric antrum. Placement of an externally removable PEG with no T-fasteners was successfully completed. The external bumper was at the 3.0 cm marking on the tube. Estimated blood loss was minimal. Impression: - LA Grade A reflux esophagitis. Biopsied. - Small hiatal hernia. - Erythematous mucosa in the antrum. Biopsied - Normal examined duodenum. - An externally removable PEG placement was successfully completed. Recommendation: - Please follow the post-PEG recommendations including: Nutrition consult for formula and volume. - Discharge patient to home. - Resume previous diet. - Continue present medications. Sarthak Alicea MD 06/20/2018 9:04:30 AM This report has been signed electronically. Number of Addenda: 0 Note Initiated On: 06/20/2018 8:56 AM
[2018-06-20] MEDS: HYDROcodone Bitartrate/Apap 5/325 Tablet PO (10:30)
--- OUTSIDE RECORDS SUMMARY | 2018-08-15 11:08 | XMS RPT_ITS ---
:1960 Author Organization OHIP Support Name Relationship Address Phone MALENA CHAPASY Unavailable [address] + [address] [place] [address] D Unavailable Unavailable Unavailable SWADEEN, TIA Unavailable Unavailable + SAMMI, MARII Unavailable [address] + [address] [place] [address] D Unavailable Unavailable Unavailable SWADEEN, TIA Unavailable Unavailable + SAMMI, MARII Unavailable [address] + [address] [place] [address] D Unavailable Unavailable Unavailable SWADEEN, TIA Unavailable Unavailable + SAMMI, MARII Unavailable [address] + [address] [place] [address] D Unavailable Unavailable Unavailable SWADEEN, TIA Unavailable Unavailable + SAMMI, MARII Unavailable [address] + [address] [place] [address] D Unavailable Unavailable Unavailable SWADEEN, TIA Unavailable Unavailable + SAMMI, MARII Unavailable [address] + [address] [place] [address] D Unavailable Unavailable Unavailable SWADEEN, TIA Unavailable Unavailable + SAMMI, MARII Unavailable [address] + [address] [place] [address] D Unavailable Unavailable Unavailable SWADEEN, TIA Unavailable Unavailable + SAMMI, MARII Unavailable [address] + [address] [place] [address] D Unavailable Unavailable Unavailable SWADEEN, TIA Unavailable Unavailable + SAMMI, MARII Unavailable [address] + [address] [place] [address] D Unavailable Unavailable Unavailable SWADEEN, TIA Unavailable Unavailable + SAMMI, MARII Unavailable [address] + [address] [place] [address] D Unavailable Unavailable Unavailable SWADEEN, TIA Unavailable . + [place] [address] BRYER VALENTIN Unavailable [address] + [address] [place] [address] D Unavailable Unavailable Unavailable SWADEEN, TIA Unavailable Unavailable + BRYER VALENTIN Unavailable [address] + [address] [place] [address] D Unavailable Unavailable Unavailable SWADEEN, TIA Unavailable Unavailable + KULDIPERROSALINAVALENTIN Unavailable [address] + [address] [place] [address] D Unavailable Unavailable Unavailable SWADEEN, TIA Unavailable Unavailable + [place] [address] BRYER VALENTIN Unavailable [address] + [address] [place] [address] D Unavailable Unavailable Unavailable SWADEEN, TIA Unavailable Unavailable + [place] [address] D Unavailable Unavailable Unavailable FRANKY, JUDY Unavailable [address] + [place] [address] D Unavailable Unavailable Unavailable FRANKY, JUDY Unavailable [address] + [place] [address] D Unavailable Unavailable Unavailable FRANKY, JUDY Unavailable [address] + [place] [address] D Unavailable Unavailable Unavailable FRANKY, JUDY Unavailable [address] + [place] [address] D Unavailable Unavailable Unavailable FRANKY, JUDY Unavailable [address] + [place] [address] D Unavailable Unavailable Unavailable FRANKY, JUDY Unavailable [address] + [place] [address] D Unavailable Unavailable Unavailable FRANKY, JUDY Unavailable [address] + [place] [address] Care Team Providers Name Role Phone Ortiz Nguyen Attending Unavailable Oleghe, Efewongbe Primary Care Unavailable Ortiz Nguyen Consulting Unavailable Ortiz Nguyen Attending Unavailable Jolliff, Christina Primary Care Unavailable Schwiger, Crow Attending Unavailable Jolliff, Christina Primary Care Unavailable Johnson, Michael Attending Unavailable YeAngel Attending Unavailable Oleghe, Efewongbe Referring Unavailable Jolliff, Christina Primary Care Unavailable Angel Belcher Attending Unavailable Ye Angel Referring Unavailable Oleghe, Efewongbe Primary Care Unavailable Oleghe, Efewongbe Attending Unavailable Oleghe, Efewongbe Referring Unavailable Newsome, Crow Attending Unavailable Newsome, Crow Referring Unavailable Oleghe, Efewongbe Primary Care Unavailable Newsome, Crow Attending Unavailable Newsome, Crow Referring Unavailable Oleghe, Efewongbe Primary Care Unavailable Newsome Crow Attending Unavailable Newsome, Crow Referring Unavailable Oleghe, Efewongbe Primary Care Unavailable Oleghe, Efewongbe Primary Care Unavailable Newsome, Crow Admitting Unavailable Newsome, Crow Attending Unavailable Ortiz Nguyen Attending Unavailable Oleghe, Efewongbe Primary Care Unavailable Seb Powell Unavailable Ortiz Nguyen Referring Unavailable Ortiz Nguyen Attending Unavailable Oleghe, Efewongbe Primary Care Unavailable Seb Powell Unavailable Ortiz Nguyen Consulting Unavailable Ortiz Nguyen Attending Unavailable Oleghe, Efewongbe Primary Care Unavailable Roman Vu Attending Unavailable Oleghe, Efewongbe Primary Care Unavailable Ortiz Nguyen Consulting Unavailable Oleghe, Efewongbe Referring Unavailable Sarthak Alicea Attending Unavailable Oleghe, Efewongbe Referring Unavailable Sarthak Alicea Attending Unavailable Deanne Sarthak Referring Unavailable Oleghe, Efewongbe Primary Care Unavailable Ortiz Nguyen Attending Unavailable Oleghe, Efewongbe Primary Care Unavailable Ortiz Nguyen Attending Unavailable Oleghe, Efewongbe Primary Care Unavailable Ortiz Nguyen Consulting Unavailable Sarthak Alicea Referring Unavailable Ortiz Nguyen Attending Unavailable Oleghe, Efewongbe Primary Care Unavailable Ortiz Nguyen Attending Unavailable Ortiz Nguyen Referring Unavailable PROBLEMS PROBLEMS DATE TYPE CONDITION / CODE ATTENDING STATUS SOURCE 07/09/2018 Unknown 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, Hospital unspecified / Repository C09.9(ICD-10) 04/25/2018 Unknown R13.10 - Oleghe, Active [place] Dysphagia, Efew[place]be Community unspecified / Hospital R13.10(ICD-10) Repository 04/13/2018 Unknown J02.9 - Acute Ye, Angel Active [place] pharyngitis, Community unspecified / Hospital J02.9(ICD-10) Repository 04/13/2018 Unknown J01.90 - Acute Ye, Angel Active [place] sinusitis, Community unspecified / Hospital J01.90(ICD-10) Repository PROCEDURES PROCEDURES No Procedure Records FoundRESULTS RESULTS ONCOLOGY VISIT REPORT Observed: 07/10/2018 Status: F Source: STOUT 3:56 PM [facility] REPOSITORY [facility] [address] [place] [address] [place] [address] OFFICE VISIT Date of Service: 07/05/18 1433 MR#: [id number] Acct: [id number] Name: ANDREW STANFORD Rep #: [id number] : 1960 From: Reta IRAHETA Age/Sex: 58/M Location: ONC Status: Signed Subjective - Date of Service Date of Service:: 07/05/18 - Chief Complaint Chemotherapy education- Cisplatin - History of Present Illness 58 y.o.man presented with persistent sore throat with fluid coming out of the nose on swallowing. He was found to have Right tonsillar mass-4cm. CT neck and chest on 05/17/2018 showed 5cm necrotic R tonsillar mass, no cervical adenopathy, lungs clear, stable subcarinal node 2.5cm. He had Right radical tonsillectomy and Left tonsillectomy on 05/23/2018. 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 He had dental extractions on 06/11/2018. PET/CT shows - Interval History Patient is presenting to clinic today for chemotherapy education. It is been proposed that he begin concomitant and chemoradiation with high-dose cisplatin. Patient reports good support system at home by way of children. Transportation may or may not be an issue however he is agreed to utilize hospital transportation if needed. - Past Medical/Social History Past Medical History Other Cancer History: TONSIL Social History Social History: No changes Smoking Status Current every day smoker Review of Systems Constitutional:: Reports: Weakness, Fatigue, Weight loss, Appetite change. Denies: Fever, Sweats, Chills Cardiovascular:: Denies: Chest pain, Palpitations, Dyspnea on exertion, Orthopnea, PND, Shortness of breath Respiratory: Reports: Cough - Chronic. Denies: Hemoptysis, Shortness of Breath, Wheezing Gastrointestinal:: Denies: Abdominal pain, Nausea, Vomiting, Diarrhea, Constipation, Melena, Hematochezia Genitourinary: Denies: Dysuria, Hematuria, 15, Flank pain Musculoskeletal:: Denies: Back pain, Myalgia, Arthralgia Skin: Denies: Rash, Skin Changes, Wounds Neurological:: Denies: Headache, Dizziness, Numbness, Tingling, Visual changes, Tinnitus, Hearing loss Psychiatric: Denies: Anxiety, Depression, Homicidal Ideations, Suicidal Ideations Vital Signs Height 5 ft 9 in Weight: 142 lb 1.6 oz Weight in Pounds 142.1 lbs BMI 20.7 Pulse Ox 97 - Physical Exam General: Alert, Oriented x3, No apparent distress HEENT: Atraumatic, Normocephalic Skin:: Negative for: Lesions, Rash, Petechiae, Ecchymosis Diagnostic Data: Diagnostic Data PET, CT Tumor Imaging 07/02/18 11:17 IMPRESSION: 1. ABNORMAL EXAMINATION INDICATIVE OF MALIGNANT-VIABLE NEOPLASM. 2. Increased glucose concentration noted in the pharyngeal mucosal space extending to the hypopharynx to the right of the midline fulfills quantitative criteria for viable neoplasm. 3. Neoplastic infiltration is demonstrated in the right lateral neck and right parapharyngeal and retropharyngeal space. 4. Asymmetric enhanced FDG uptake noted in the left mandible may be further investigated with clinical examination. Electronic Signature Jairon Reardon D.O. Electronically Signed: Jairon Reardon DO at 22:28 EST Tel , Service support , Assessment and Plan 1. Oropharyngeal cancer-Right tonsil squamous cell cancer, P16 negative. Subcarinal node-completed dental extractions, port and PEG tube placement. Has been evaluated by speech and nutrition. It has been proposed he begin Cisplatin 100mg/m2 IV every 21 days x 3 during Radiation. The patient has been thoroughly educated to risks/benefits associated with chemotherapy, cisplatin. Specifically, he has been educated to potential side effects, recommendations for symptom management, and circumstances in which he should contact provider immediately, such as the development of any signs/symptoms of infection inclusive of temperature > 100.4. Encouraged to go directly to ED should fever occur outside normal clinic hours. He has been provided written educational information and after hours contact information and prescriptions for prn antiemetics/EMLA cream. Greater than 50% of this one hour visit was spent in counseling and a significant amount of time was allotted for questions. All the patient's concerns were addressed to his satisfaction and he is agreeable to proceed. Tentatively, he will commence with cycle 1 on 07/09/2018. 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 Primary Care Provider: Blayne Hernandez MD Referring Provider: 07/10/18 1556 <Electronically signed by Reta IRAHETA> Date Reta IRAHETA Cosigner Signature: Date (if applicable) CC: ONCOLOGY FOLLOW-UP Observed: 07/05/2018 Status: F Source: STOUT VISIT 4:36 PM [facility] REPOSITORY [facility] Medical Records Department [address] [place] [address] Oncology Follow-Up Visit 07/05/18 1600 MR#: [id number] Acct: [id number] Name: ANDREW STANFORD Rep #: [id number] : 1960 58 From: Ortiz Nguyen DO PCP: Blayne Hernandez MD Status: REG RCR Y Location: [facility] Date of Service: 06/27/18 Last Clinic Visit: 06/22/18 Diagnosis: Andrew Stanford is a 57-year-old male diagnosed with likely stage III-DYLAN (T3-4a N0-1 Mx) 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 History of Present Illness: 04/05/2018: Patient presented to the emergency department for right lower dental pain and swelling that has been getting worse for several weeks. At this time the pain radiated to the neck and right ear. Patient does not have a dentist. Patient was given antibiotics and referred for dental work. 04/10/2018: Patient presented to the emergency room for persistent discomfort but was also discharged home and referred for dental evaluation after this visit. 04/13/2018: Patient presented to urgent care with continued pain. Patient reports having multiple teeth pulled in the past and has had multiple infected teeth diagnosed. He is scheduled to have remaining teeth extracted on 16 May. He reported to have continued right-sided throat pain at this time. 04/25/2018: Patient was evaluated by internal medicine/primary care due to persistent pain with swallowing concern for pharyngitis, and 10 pound weight loss due to poor eating secondary to pain. On exam it was difficult to evaluate the posterior oropharynx. Referral made to ENT. 04/30/2018: Patient was evaluated by ENT. Complained of having difficulty swallowing starting about 2 months ago after he had 5 teeth pulled, complained also of having 16 pound weight loss in these 2 months and having right ear discomfort, no improvement with antibiotics. On exam there was noted to be a 4 cm mass involving the right tonsil and a 3 cm jugulodigastric lymph node noted in the right anterior cervical region. On NPL there is noted to be a bilateral enlargement of the tonsils with a fungating lesion on the right side. The posterior pharyngeal wall mucosa and tongue base appear normal. The epiglottis and vallecula/piriform sinus are normal with no salivary pooling. No other abnormalities were noted. 05/17/2018: CT soft tissue neck with contrast was performed which demonstrated an irregular area of mildly enhancing and thickened tissue surrounding an irregular collection of fluid and gas bubbles that appears to communicate with the oropharynx within the right tonsil. Overall this measures about 5.2 x 2.5 x 2.8 cm. There is a mildly lobulated prominence of the tongue base but without discrete mass suggestive lymphoid hyperplasia. No enlarged lymph nodes were noted on the exam. 05/17/2018: CT chest was performed which demonstrated a stable 2.5 x 1.4 x 0.9 cm precarinal lymph node as well as other stable upper normal to borderline enlarged lymph nodes in the subcarinal tissues and AP window. Comparisons included a CT chest with contrast from September 14, 2016. 05/23/2018: Patient underwent radical right tonsillectomy and left tonsillectomy. Right tonsil demonstrated invasive moderate to poorly differentiated squamous cell carcinoma with mucosal ulceration, p16 negative. The carcinoma extends to the inked superior, inferior, and posterior margins of excision. There is multifocal perineural invasion and the carcinoma focally involves skeletal muscle tissue. Left tonsil tonsillectomy demonstrated no evidence of malignancy. 06/11/18: All remaining teeth were removed for dental clearance 06/22/18: Patient underwent PORT and PEG placement 07/02/2018: PET scan was performed which demonstrated increased asymmetric glucose metabolism defined in the pharyngeal mucosal, tongue base extending caudal to the right hypopharynx with several areas of increased concentration in the right lateral neck involving levels to be in the right parapharyngeal and right retropharyngeal space with a calculated maximum SUV of 13. There is also noted to be in asymmetric increased fluorine labeled glucose uptake noted in the oral cavity to the left midline contiguous with the mandible with a calculated SUV of 4.4. No evidence of distant metastatic disease is noted. Radiation Treatment History: None. No pacemaker. Interval History: Patient returns to discuss PET scan results and to complete physical exam given the finding of PET avidity within the left mandible region. He reports that he still is to plug his nose to swallow otherwise he can get some fluids coming out of his nose. He is up 3 pounds and sticking to a softer diet. He is not using his PEG at this time. He has continued pain in his throat particularly on the right especially with swallowing and has a continuous earache on the right. He denies having dental pain or fever/chills. He denies having any other new problems or concerns. I have reviewed the medical, surgical, and other pertinent history in details and have updated medication and allergy information in the electronic medical record. Review of Systems: A 12-point review of systems was completed and was negative except for what is noted in the HPI/Interval History and by the nurse. Height/Weight/BMI: Height: 5 ft 9 in Weight: 142.1 lbs Vital Signs Temperature 97.7 F L 07/05/18 13:39 Temperature Source Oral 07/05/18 13:39 Pulse Rate 77 07/05/18 13:39 Respiratory Rate 16 07/05/18 13:39 Physical Exam: ECO [place] SCORE: 90% CONSTITUTIONAL: Well-developed, well-nourished, and in no apparent distress. HEENT: Mucous membranes moist. All remaining teeth have been removed. There is concern for poor healing involving the right lower anterior second tooth from midline possibly having exposed bone and involving the left upper anterior several areas with deep cavities that are not sewn closed possibly reaching bone. Involving the left posterior mandible there is a approximately 1 cm in length very thin area of what appears to be exposed bone, this is painful to palpation rough and hard, and does not peel off. This is in the area of PET avidity. No evidence of thrush or lesions within the visualized oropharynx or oral cavity. Bilateral tonsillectomy sites appear well-healed. No trismus. Pupils are equal, round, and reactive to light and accommodation. Extraocular movements are intact. Sclerae are anicteric. NECK: Supple,with no thyromegaly, and non-tender. Trachea midline. No cervical or supraclavicular adenopathy noted. CARDIAC: Regular rate and rhythm. Normal S1, S2. No murmurs, rubs, or gallops. PULMONARY/CHEST: Lungs are clear to auscultation and percussion bilaterally. No wheezes, rhonchi, or crackles noted. No increased work of breathing. ABDOMINAL: Abdomen soft, non-tender, non-distended. No hepatomegaly. Normoactive bowel sounds in all four quadrants. No guarding, rebound. PEG in place with bandages on. BACK: Straight and aligned. No CVA tenderness. Axial skeleton non-tender to percussion. EXTREMITIES: Full range of motion in all four extremities, with normal strength equally and symmetrically. No evidence of edema. No clubbing. NEUROLOGICAL EXAM: Alert and oriented x 3. Cranial nerves II through XII are grossly intact. No focal neurological deficit. Speech is fluent. There is no upper or lower extremity sensory deficit or motor deficit. Muscle strength is 5/5 in all muscle groups. Gait and posture are steady. PSYCHIATRIC: Appropriate mood and affect for the clinical situation. 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 Patient returns for follow-up prior to initiating chemoradiation to review the PET scan results and because of some concern for poor healing after dental extractions on the PET scan. I reviewed the results of the PET scan with the patient which appear to demonstrate gross residual disease or recurrent disease involving the superior, lateral, and inferior portions of the previous radical tonsillectomy resection as well as a solitary right level 2 lymph node. It is unclear what the mildly PET avid left mandibular abnormality represents, this was discussed with radiology and could represent disease or inflammation related to dental healing or dental caries. On exam there does appear to be a small ridge of exposed bone in the medial mandibular surface on the left and pain with palpation likely representing exposed bone and possibly underlying infectious process. The dentist who removed his teeth was also here for evaluation and agreed that this appeared to be bone but that the remaining extraction sites were still healing well. He was unsure how well this would heal or how long it would take and did not recommend any intervention at this time, he was unclear if there was possibly an underlying infection. Given the clinical scenario of complete dental extractions 3 weeks prior to the PET scan I believe this is more likely to be inflammatory response or infection and very unlikely to be disease related as it is contralateral to the tonsillar primary and would represent a very abnormal solitary metastatic bone site. Given the apparent fast regrowth of primary disease at several locations involving the margin it is possible that his disease is very aggressive and further delay could greatly diminish his chances of cure however initiating treatment at this time would put him at risk likely for radionecrosis and serious complications. On her current plan this area is receiving between 40 and 50 Gy and so it is possible that if there is no underlying infection this could heal with hyperbaric oxygen and other interventions following treatment. We will plan to discuss with ENT and maxillofacial surgery to give recommendations regarding any intervention or antibiotics and do everything possible to limit any further delay in initiating treatment. Ortiz Nguyen DO, MS Processing Tech, Department of Radiation Oncology [facility] 07/05/18 1636 <Electronically signed by Ortiz Nguyen DO> Date Ortiz Nguyen DO CC: Crow Newsome MD; Roman Vu MD Signed PET/CT TUMOR BASE Observed: 07/02/2018 Status: F Source: [place] -THIGH INIT 11:17 AM [facility] REPOSITORY [facility] Imaging Services [address] [id number] PET/CT Tumor Base -Thigh Init MR#: [id number] Acct: [id number] Name: ANDREW STANFORD Rep #: [id number] : 1960 M 58 From: Jairon Reardon DO PCP: Blayne Hernandez MD Status: REG RCR Study: PET/CT Tumor Base -Thigh Init Date of Exam: 07/02/18 Exam# [id number] Ordering Dr: Ortiz Nguyen DO EXAMINATION: FDG PET CT INDICATIONS: A 58-year-old male with reported history of head and neck carcinoma presenting for initial staging examination. COMPARISON EXAMINATION: CT of the neck report dated 05/17/18, CT of the chest report dated 05/17/18. INDEX LESION SIZE SUV INTERPRETATION Pharyngeal mucosal space-hypopharynx 22.0 mm (frame 266) 12.4 Fulfills quantitative criteria for viable neoplasm Right lateral neck, right parapharyngeal and retropharyngeal space 23.2 mm largest (frame 285) 13.0 (max) Fulfills quantitative criteria for viable neoplasm TECHNIQUE: Following the intravenous administration of 15.29 mCi of F-18 deoxyglucose via the left antecubital fossa, multiplanar image acquisitions of the neck, chest, abdomen and pelvis to level of mid thigh, obtained at one hour post radiopharmaceutical administration contemporaneously interpreted with the current CT of the neck, chest, abdomen and pelvis to level of mid thigh, dated 07/02/[address] of the neck report dated 05/17/18, CT of the chest report dated 05/17/18 reveal: SERUM GLUCOSE LEVEL: 98 mg/dl. HEIGHT: 69 inches. WEIGHT: 131 lbs. FINDINGS: 1. An asymmetric increase in glucose metabolism is defined in the pharyngeal mucosal space, tongue base extending caudal to the right hypopharynx. The calculated maximum standard uptake value is 12.4. The maximal axial diameter of the metabolic, morphologic abnormality on review of CT of the neck dated 07/02/18 is 22.0 mm (transverse). 2. Several nodular foci of increased radiopharmaceutical concentration are manifest in the right lateral neck involving level II B and right parapharyngeal and right retropharyngeal space. The calculated maximum standard uptake value is 13.0. The maximal axial diameter of the largest metabolic abnormality is approximately 23.2 mm (transverse). 3. Asymmetric increased fluorine labeled glucose uptake is noted in the oral cavity to the left of the midline contiguous to the mandible rendering a calculated maximum standard uptake value of 4.4. 4. Normal physiologic distribution of the radiopharmaceutical is apparent in the hepatic (2.6) and splenic parenchyma, both renal units, bladder and visualized intestinal tract. There is symmetric and preserved glucose metabolism noted in the visualized portion of the frontal, occipital, temporal and parietal lobes of the cerebral cortex, as well as cerebral hemispheres and basal ganglia. Diffuse gastrointestinal tract activity is noted throughout all four quadrants of the abdominal-pelvic retroperitoneum, mesentery consistent with normal physiologic distribution of the radiopharmaceutical. The left kidney demonstrates prominent collecting system activity involving the superior pole khalif and renal pelvis. Pertinent CT findings are as follows. CHEST: There are no parenchymal densities-nodules defined in the right-left hemithorax demonstrating discernible, quantitatively significant increased glucose metabolism. Kvtg-S-Qarp-MediPort placement is noted. Coronary arterial calcification is observed. Atherosclerotic calcification is defined in the thoracic aorta without evidence of dilatation, aneurysm formation. Right-left axillary soft tissue densities with fatty hilus formation are ametabolic. ABDOMEN AND PELVIS: Atherosclerotic calcification is defined in the abdominal aorta without evidence of dilatation, aneurysm formation. Pelvic arterial calcification is observed. Dystrophic calcification is manifest within the prostate gland without evidence of facilitated glucose metabolism. Right-left inguinal soft tissue densities reveal no evidence of facilitated glucose metabolism. SKELETAL: Degenerative changes defined in the cervical, thoracic and lumbar spine demonstrate no evidence for glucose hypermetabolism. PET/PET/CT Tumor Base -Thigh Init IMPRESSION: 1. ABNORMAL EXAMINATION INDICATIVE OF MALIGNANT-VIABLE NEOPLASM. 2. Increased glucose concentration noted in the pharyngeal mucosal space extending to the hypopharynx to the right of the midline fulfills quantitative criteria for viable neoplasm. 3. Neoplastic infiltration is demonstrated in the right lateral neck and right parapharyngeal and retropharyngeal space. 4. Asymmetric enhanced FDG uptake noted in the left mandible may be further investigated with clinical examination. Electronic Signature Jairon Reardon D.O. Electronically Signed: Jairon Reardon DO at 22:28 EST Tel , Service support , CC: Blayne Hernandez MD; Ortiz Nguyen DO Photo Cartographer: Signed ONCOLOGY FOLLOW-UP Observed: 06/22/2018 Status: F Source: STOUT VISIT 9:39 AM [facility] Medical Records Department [address] [place] [id number] Oncology Follow-Up Visit 06/22/18 0842 MR#: [id number] Acct: [id number] Name: ANDREW STANFORD Rep #: [id number] : 1960 58 From: Ortiz Nguyen DO PCP: Blayne Hernandez MD Status: REG RCR Y Location: [facility] Date of Service: 06/22/18 Last Clinic Visit: 06/07/18 Diagnosis: Andrew Stanford is a 57-year-old male diagnosed with likely stage III-DYLNA (T3-4a N0-1 Mx) 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 History of Present Illness: 04/05/2018: Patient presented to the emergency department for right lower dental pain and swelling that has been getting worse for several weeks. At this time the pain radiated to the neck and right ear. Patient does not have a dentist. Patient was given antibiotics and referred for dental work. 04/10/2018: Patient presented to the emergency room for persistent discomfort but was also discharged home and referred for dental evaluation after this visit. 04/13/2018: Patient presented to urgent care with continued pain. Patient reports having multiple teeth pulled in the past and has had multiple infected teeth diagnosed. He is scheduled to have remaining teeth extracted on 16 May. He reported to have continued right-sided throat pain at this time. 04/25/2018: Patient was evaluated by internal medicine/primary care due to persistent pain with swallowing concern for pharyngitis, and 10 pound weight loss due to poor eating secondary to pain. On exam it was difficult to evaluate the posterior oropharynx. Referral made to ENT. 04/30/2018: Patient was evaluated by ENT. Complained of having difficulty swallowing starting about 2 months ago after he had 5 teeth pulled, complained also of having 16 pound weight loss in these 2 months and having right ear discomfort, no improvement with antibiotics. On exam there was noted to be a 4 cm mass involving the right tonsil and a 3 cm jugulodigastric lymph node noted in the right anterior cervical region. On NPL there is noted to be a bilateral enlargement of the tonsils with a fungating lesion on the right side. The posterior pharyngeal wall mucosa and tongue base appear normal. The epiglottis and vallecula/piriform sinus are normal with no salivary pooling. No other abnormalities were noted. 05/17/2018: CT soft tissue neck with contrast was performed which demonstrated an irregular area of mildly enhancing and thickened tissue surrounding an irregular collection of fluid and gas bubbles that appears to communicate with the oropharynx within the right tonsil. Overall this measures about 5.2 x 2.5 x 2.8 cm. There is a mildly lobulated prominence of the tongue base but without discrete mass suggestive lymphoid hyperplasia. No enlarged lymph nodes were noted on the exam. 05/17/2018: CT chest was performed which demonstrated a stable 2.5 x 1.4 x 0.9 cm precarinal lymph node as well as other stable upper normal to borderline enlarged lymph nodes in the subcarinal tissues and AP window. Comparisons included a CT chest with contrast from September 14, 2016. 05/23/2018: Patient underwent radical right tonsillectomy and left tonsillectomy. Right tonsil demonstrated invasive moderate to poorly differentiated squamous cell carcinoma with mucosal ulceration, p16 negative. The carcinoma extends to the inked superior, inferior, and posterior margins of excision. There is multifocal perineural invasion and the carcinoma focally involves skeletal muscle tissue. Left tonsil tonsillectomy demonstrated no evidence of malignancy. 06/11/18: All remaining teeth were removed for dental clearance 06/22/18: Patient underwent PORT and PEG placement Radiation Treatment History: None. No pacemaker. Interval History: Patient returns for CT simulation. In the interim he has had the remaining teeth removed but has not seen his dentist back yet. He reports some occasional dental pain but nothing very severe. PEG tube and port were placed 2 days ago and he thinks he is healing well, there is still discomfort around the PEG tube site, he has not used the PEG tube. He is adjusting and eating a soft diet, denies having weight loss or other problems or concerns at this time. I have reviewed the medical, surgical, and other pertinent history in details and have updated medication and allergy information in the electronic medical record. Review of Systems: A 12-point review of systems was completed and was negative except for what is noted in the HPI/Interval History and by the nurse. Height/Weight/BMI: Height: 5 ft 9 in Weight: Vital Signs Temperature 98.9 F 06/22/18 08:03 Temperature Source Oral 06/22/18 08:03 Physical Exam: ECO KARNOFSKY SCORE: 90% CONSTITUTIONAL: Well-developed, well-nourished, and in no apparent distress. HEENT: Mucous membranes moist. All remaining teeth have been removed. There is concern for poor healing involving the right lower anterior second tooth from midline possibly having exposed bone and involving the left upper anterior several areas with deep cavities that are not sewn closed possibly reaching bone. No evidence of thrush or lesions within the visualized oropharynx or oral cavity. Bilateral tonsillectomy sites appear well-healed. No trismus. Pupils are equal, round, and reactive to light and accommodation. Extraocular movements are intact. Sclerae are anicteric. NECK: Supple,with no thyromegaly, and non-tender. Trachea midline. No cervical or supraclavicular adenopathy noted. CARDIAC: Regular rate and rhythm. Normal S1, S2. No murmurs, rubs, or gallops. PULMONARY/CHEST: Lungs are clear to auscultation and percussion bilaterally. No wheezes, rhonchi, or crackles noted. No increased work of breathing. ABDOMINAL: Abdomen soft, non-tender, non-distended. No hepatomegaly. Normoactive bowel sounds in all four quadrants. No guarding, rebound. PEG in place with bandages on. BACK: Straight and aligned. No CVA tenderness. Axial skeleton non-tender to percussion. EXTREMITIES: Full range of motion in all four extremities, with normal strength equally and symmetrically. No evidence of edema. No clubbing. NEUROLOGICAL EXAM: Alert and oriented x 3. Cranial nerves II through XII are grossly intact. No focal neurological deficit. Speech is fluent. There is no upper or lower extremity sensory deficit or motor deficit. Muscle strength is 5/5 in all muscle groups. Gait and posture are steady. There are no abnormal cerebellar signs. PSYCHIATRIC: Appropriate mood and affect for the clinical situation. PROCEDURE PERFORMED: Left Flexible Udeh-Wfnujbeh-Wvamsemotqdj. CONSENT: Verbal informed consent was obtained prior to the procedure after discussion of risks, benefits, and alternatives and expected outcomes were discussed with the patient. ANESTHESIA: Topical anesthesia administered: Topical Benzocaine 2 sprays given. 5 minutes was allowed for anesthesia PROCEDURE DETAILS: left nostril was prepared with topical anesthesia without difficulty, a flexible laryngoscope was advanced through the nostril to sequentially examine the nasopharynx, palate, oropharynx, and base of the tongue, epiglottis, larynx, hypopharynx and pyriform sinuses. There were no masses or lesions visible in the nasal cavity or nasopharynx. As the scope was advanced distally, the larynx and hypopharynx were examined. There is no obvious evidence of gross disease remaining in the tonsillar fossa or extending down towards the base of tongue/AE fold. This area appears well-healed. Vocal cords without abnormality. Hypopharynx is clear without lesions. The scope was withdrawn and removed. There was no bleeding noted from the nostril. Patient tolerated the procedure well. 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 Patient returns for CT simulation after having all teeth removed on 06/11/2018. He appears to be healing well mostly with a few areas of of concern for poor healing and he will see his dentist this afternoon to evaluate and see if any further closure needs done. The areas are going to be at a distance from radiation and likely will not receive much dose. To avoid delay we will move forward with CT simulation today and he will complete PET scan on 06/25/2018 in treatment position. He will see speech therapy today following CT simulation. He was seen medical oncology next week after the PET scan. He was instructed to call with any further questions or concerns in the interim. Ortiz Nguyen DO, Processing Tech, Department of Radiation Oncology [facility] 06/22/18 0970 <Electronically signed by Ortiz Nguyen DO> Date Ortiz Nguyen DO CC: Crow Newsome MD; Roman Vu MD; Sarthak Alicea MD Signed DISCHARGE INSTRUCTION Observed: 06/21/2018 Status: F Source: STOUT 2:33 PM [facility] REPOSITORY [facility] Medical Records Department [address] [place] [address] Instructions for Home/Discharge Instructions 06/20/18 0831 MR#: [id number] Acct: [id number] Name: ANDREW STANFORD Rep #: [id number] : 1960 58 From: Sarthak Alicea MD PCP: Blayne Hernandez MD Status: DEP [facility] Discharge Diet: Light diet - advance as tolerated - if you have questions about your diet instructions, please talk to you doctor. Discharge Activity: May Not Drive - for 1 week or while taking narcotic pain medicine. Lifting Restrictions: 10 pounds Call your doctor if your incision/area has: Continuous Slow Oozing, Sudden Increased Bleeding, Increased Pain/ Swelling, Increased Redness, Foul Smelling Discharge Call your doctor if you observe: Fever of 101 or Higher Suture Line Care: Avoid Pulling/Pushing, Avoid Pinching/Bending Additional Dressing/Incision Instructions:: You may leave the plastic dressings on your right chest and neck for 3 days. You may then remove them and leave the Steri-Strips on for an additional 1 week. The PEG tube site can be cleansed with a Q-tip and peroxide and dry gauze dressing daily. Flush the PEG tube with 30 cc or 1 ounce of tap water each 4-6 hours. Nutritional supplementation via your PEG tube as per nutrition therapy and hematology oncology Allergies/Adverse Reactions: Allergies bee venom protein (honey bee) Allergy (Verified 06/19/18 13:14) Angioedema Medications to take at Discharge Hydrocodone Bitart/Apap 5-325 [[place] 5MG-325MG] 1 - 2 tablet PO Q4H PRN PRN 06/19/18 Ibuprofen 400 mg PO PRN PRN 06/19/18 Primary Care Physician: Blayne Hernandez MD [Primary Care Provider] - Test Results: Test results from this visit will be discussed in further detail at your follow-up appointment, if applicable. Please Follow Up With: Sarthak Alicea MD - [phone] When: Call to make an appointment to be seen in about 10 days. 06/21/18 1433 <Electronically signed by Sarthak Alicea MD> Date Sarthak Alicea MD CC: Blayne Hernandez MD OPERATIVE REPORT Observed: 06/21/2018 Status: F Source: STOUT 2:33 PM [facility] REPOSITORY [facility] Medical Records Department [address] [place] [address] Operative Report 06/20/18 0839 MR#: [id number] Acct: [id number] Name: ANDREW STANFORD Rep #: [id number] : 1960 58 From: Sarthak Alicea MD PCP: Blayne Hernandez MD Status: [facility] Y Location: EN Problem List (1) Malignant neoplasm of tonsil Status: Chronic Report of Operation Date of Procedure: 06/20/18 Pre-Operative Diagnosis: tonsillar cancer Post-Operative Diagnosis: same Surgery/Procedure Performed:: right internal jugular port placement Description of Surgical Findings:: ancef 2 gm given IV. Time out and informed consent. Right neck and chest prepped. U/S used to identify right IJ which was treated with 1% lidocaine and 0.5% marcaine. total 20cc. Right IJ accessed with U/S and micropuncture, and changed to 0.35 j wire. Pocket created and tubing tunneled. Fluoro used to help guide placement of wire. Catheter placement and sheath removed. Tip placed at SVC atrial junction. Tubing attached to port. Port site closed with 3.0 vicryl. Neck site closed with 5.0 vicryl. Port accessed and aspirated and flushed with saline then heparin. Steri strips and telfa opcites. Well tolerated. To RR satis. Stat portable CXR pending Specimens none. Drains none. Blood loss minimal. Katie Type of Anesthesia:: Local MAC Anesthesiologist: Festus Trivedi 06/21/18 1433 <Electronically signed by Sarthak Alicea MD> Date Sarthak Alicea MD CC: Blayne Hernandez MD; Sarthak Alicea MD Signed OPERATIVE REPORT - Observed: 06/20/2018 Status: F Source: STOUT ENDOSCOPY 9:04 AM [facility] REPOSITORY [facility] Medical Records Department [address] [place] [address] Operative Report - Endoscopy MR#: [id number] Acct: [id number] Name: ANDREW STANFORD Rep #: [id number] : 1960 58 From: Sarthak Alicea MD PCP: Blayne Hernandez MD Status: [facility] Patient Name: Andrew Stanford Procedure Date: 06/20/2018 8:56 AM Date of : 1960 Age: 58 Procedure: Upper GI endoscopy Indications: Place PEG because patient is unable to eat Providers: Sarthak Alicea MD Referring MD: Sarthak Alicea MD Medicines: See the Anesthesia note for documentation of the administered medications Complications: No immediate complications. Procedure: Pre-Anesthesia Assessment: - Prior to the procedure, a History and Physical was performed, and patient medications and allergies were reviewed. The patient's tolerance of previous anesthesia was also reviewed. The risks and benefits of the procedure and the sedation options and risks were discussed with the patient. All questions were answered, and informed consent was obtained. Prior Anticoagulants: The patient has taken no previous anticoagulant or antiplatelet agents. ASA Grade Assessment: II - A patient with mild systemic disease. After reviewing the risks and benefits, the patient was deemed in satisfactory condition to undergo the procedure. After obtaining informed consent, the endoscope was passed under direct vision. Throughout the procedure, the patient's blood pressure, pulse, and oxygen saturations were monitored continuously. The upper GI endoscopy was accomplished without difficulty. The patient tolerated the procedure well. Findings: LA Grade A (one or more mucosal breaks less than 5 mm, not extending between tops of 2 mucosal folds) esophagitis with no bleeding was found 40 cm from the incisors. Biopsies were taken with a cold forceps for histology. A small hiatal hernia was present. Diffuse mildly erythematous mucosa without bleeding was found in the gastric antrum. Biopsy obtained The examined duodenum was normal. Diffuse mildly erythematous mucosa without bleeding was found in the gastric antrum. Placement of an externally removable PEG with no T-fasteners was successfully completed. The external bumper was at the 3.0 cm marking on the tube. Estimated blood loss was minimal. Impression: - LA Grade A reflux esophagitis. Biopsied. - Small hiatal hernia. - Erythematous mucosa in the antrum. Biopsied - Normal examined duodenum. - An externally removable PEG placement was successfully completed. Recommendation: - Please follow the post-PEG recommendations including: Nutrition consult for formula and volume. - Discharge patient to home. - Resume previous diet. - Continue present medications. Sarthak Alicea MD 06/20/2018 9:04:30 AM This report has been signed electronically. Number of Addenda: 0 Note Initiated On: 06/20/2018 8:56 AM 06/20/1804 Date [facility] Signature: Date (if indicated) CC: Blayne Hernandez MD; Sarthak Alicea MD Date Dictated: 06/20/18 0856 Date Transcribed: Photo Cartographer: ASHANTI Signed CXR FOR LINE PLACEMENT Observed: 06/20/2018 Status: F Source: STOUT 8:55 AM [facility] REPOSITORY [facility] Imaging Services [address] [place] [address] CXR for Line Placement MR#: [id number] Acct: [id number] Name: ANDREW STANFORD Rep #: [id number] : 1960 M 58 From: Dominik Chaidez MD PCP: Blayne Hernandez MD Status: REG [facility] Study: CXR for Line Placement Date of Exam: 06/20/18 Exam# [id number] Ordering Dr: Sarthak Alicea MD STUDY: X-RAY CHEST REASON FOR EXAM: Male, 58 years old. Port placement. TECHNIQUE: Single AP portable view of the chest. COMPARISON: Comparison is made with prior examination dated October 31, 2016. FINDINGS: A right-sided nessa catheter has been placed. The tip is in the proximal portion of the superior vena cava. Hyperinflation. There is a questionable 1.8 cm x 2.3 cm nodule in the medial aspect of the right lower lobe. There is no demonstrated pleural abnormality. Normal size heart. Normal mediastinum and shanelle. Normal visualized pulmonary arteries. Normal visualized aortic arch and descending thoracic aorta. Normal visualized thoracic spine. Normal visualized ribs, clavicles, and shoulders. There is no demonstrated abnormality of the visualized soft tissue structures of the upper abdomen. RAD/CXR for Line Placement IMPRESSION: The tip of the right portacatheter is in the proximal portion of the superior vena cava. Hyperinflation. Questionable 1.8 cm x 2.3 cm nodule in the medial aspect of the right lower lobe. Electronically Signed: Dominik Chaidez MD at 10:25 EST Tel [phone], Service support , CC: Blayne Hernandez MD; Sarthak Alicea MD Photo Cartographer: Signed EGD ([facility]) Observed: 06/20/2018 Status: F Source: MARIAH 7:30 AM [facility] REPOSITORY Patient: ANDREW STANFORD : 1960 (58/M) Acct Num: [id number] Phys: Deanne DEJESUS,Sarthak Unit Num: [id number] Loc: EN Specimen: [id number] Received: 06/20/18 0855 Spec Type: EGD BIOPSY TISSUES 1 TISSUES: A. Gastric mucous membrane B. Esophageal mucous membrane COMMENT A. The results of immunohistochemistry for Helicobacter pylori will be reported separately ([id number]). B. Alcian blue/PAS stain with matched control is used in the evaluation of the specimen. GROSS DESCRIPTION A - Received in fixative is one container labeled with the patient's name and designated antral biopsy. The specimen consists of one irregular fragment of light wooten soft tissue that measures 0.2 x 0.1 x 0.1 cm. The specimen is totally submitted in one cassette. B - Received in fixative is one container labeled with the patient's name and designated distal esophageal biopsy. The specimen consists of two irregular fragments of light wooten soft tissue that in aggregate measure 0.5 x 0.3 x 0.1 cm. The specimen is totally submitted in one cassette. / JABIER:brigida 06/20/18 TC:3 CPT: 48454 x2, 59078 HEADER OPERATION: Insertion, vascular Port/PEG tube placement PRE-OP DIAGNOSIS: Malignant neoplasm of tonsil TISSUE SUBMITTED: A. Antral biopsy, B. Distal esophageal biopsy MICROSCOPIC DESCRIPTION Slides are reviewed. A. The specimen shows fragments of gastric mucosa with chronic inflammatory cell infiltrates in the lamina propria consisting of lymphocytes and plasma cells, consistent with mild chronic gastritis. MICROSCOPIC DIAGNOSIS A. Antral biopsy: Mild gastritis. B. Distal esophageal biopsy: Fragments of gastric mucosa with intestinal metaplasia (goblet cell metaplasia) consistent with Stein's esophagus. Focal acute and chronic inflammation. Negative for dysplasia. See comment. SJ:brigida 06/21/18 Signed Torito Beaver 06/21/18 <signature on file> Performed By: #### PEGD #### [facility] [address] [place] [address]. [place], [address] IMMUNOHISTOCHEMISTRY Observed: 06/20/2018 Status: F Source: STOUT 12:00 AM [facility] REPOSITORY Patient: ANDREW STANFORD : 1960 (58/M) Acct Num: [id number] Phys: Deanne DEJESUS,Sarthak Unit Num: [id number] Loc: EN Specimen: [id number] Received: 06/21/18 - 1211 Spec Type: IMMUNO TISSUES 1 TISSUES: A. Stomach, NOS SPECIMEN INFORMATION: Tissue Source: A - Antral biopsy Clinical Info: Malignant neoplasm of tonsil Specimen Number: [id number] CPT code: 14438 METHODOLOGY: Deparaffinized sections of prefer/formalin-fixed tissue or PAP/DQ stained slides are incubated with monoclonal/polyclonal antibodies/oligonucleotide probes. Localization is made via biotin free immunoperoxidase method. Appropriate controls are performed and reacted as expected. Results on target cell population are indicated in the following table: RESULTS: ANTIBODY / CLONE RESULT Block A H Pylori (polyclonal) negative These tests were developed and their performance characteristics determined by [facility]. They may not have been cleared or approved by the U.S. Food and Drug Administration. The FDA has determined that such clearance or approval is not necessary. INTERPRETATION: A. Antral biopsy: Negative for Helicobacter pylori organisms. SJ:brigida 06/21/18 PHYSICIAN AND INSTITUTION [address] [address] Signed Torito Beaver 06/21/18 <signature on file> Performed By: #### PIMM #### [facility] [address] [place], [address] SURGERY VISIT REPORT Observed: 06/18/2018 Status: F Source: STOUT 5:26 PM [facility] REPOSITORY [facility] [address] [place] [address] OFFICE VISIT Date of Service: 06/18/18 MR#: [id number] Acct: [id number] Name: ANDREW STANFORD Rep #: [id number] : 1960 Provider: Sarthak Alicea MD Age/Sex: 58/M Location: [facility] Status: Signed Intake Vital Signs06/18/18 Body Mass Index (BMI) 19.8 06/18/18 Height 5 ft 9 in 06/18/18 Weight: 132 lb 1 oz 06/18/18 Body Mass Index (BMI) 19.5 06/18/18 Blood Pressure 100/65 Intake Visit Reasons: Port AND Peg Placement Consult Chief Complaint: PEG and port insertion Spinner Open End Required: No Is patient in pain?: No Allergies bee venom protein (honey bee) Allergy (Verified 06/18/18 14:23) Angioedema Medications Ibuprofen 400 mg PO TID PRN 06/18/18 [History Confirmed 06/18/18] PFSH Medical History Anxiety (Acute) Asthma (Acute) History of tooth extraction (Acute) Migraines (Acute) Osteoarthritis (Acute) Tonsillar cancer (Acute) HTN (hypertension) (Chronic) Surgical History History of colonoscopy (Acute) History of hand surgery (Acute) Hx of foot surgery (Acute) Hx of tonsillectomy (Acute) Family History Mother Hypertension Other Lymphoma Social History Smoking Status: Current every day smoker alcohol intake: current details: 2x/week HPI HPI HPI: ANDREW STANFORD, is a 58 M who presents to the office today for surgical consultation regarding placement of a port and a PEG to facilitate medical chemotherapy management and radiation treatment management of resection and biopsy proven tonsillar adenocarcinoma. 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 The patient has just recently undergone full dental extraction. He has lost at least 20 pounds in weight. He is a lifelong cigarette smoker and he continues to smoke cigarettes. He has ongoing needs for now chemotherapy and radiation treatment. He states because of his lack of dentition he has dropped back to mostly a soft food liquid diet. He is denying any pain with swallowing. He denies any previous abdominal surgery. On May 17, [address] scan of the chest showed emphysema pleural blebs borderline mediastinal adenopathy Patient is referred for surgical consultation regarding port and PEG placement by Dr. Vu Harvey copy of my surgical consult recommendations will be returned to him ROS General General: Yes weight change; no appetite, fatigue, colon cancer, breast cancer or weakness Additional Details: Tonsillar CA HEENT HEENT: Yes difficulty swallowing; no eye injury, eye surgery, swollen glands or hoarseness Endo Endocrine: No thyroid disease, diabetes mellitus, thyroid cancer, Hair loss, heat intolerance or cold intolerance Musc Musculoskeletal: Yes back problems and arthritis; no rheumatoid arthritis, gout or joint pain Cardio Cardiovascular: Yes high blood pressure; no murmur, pacemaker, heart disease, atrial fibrillation, heart attack, heart stent, palpitations, shortness of breat with exertion or chest pain Psych Psychiatric: Yes anxiety; no depression or hearing voices Resp Respiratory: No shortness of breath, No sleep apnea, No cough, No COPD, Yes asthma, No emphysema, No wheezing Gastro Gastrointestinal: No abdominal pain, No nausea or vomiting, No diarrhea, No constipation, No blood in stool, No acid reflux, No hemorrhoids, No ulcers, No gallbladder problem, No black,tarry stools Neuro Neurologic: No weakness Exam Const Nutritional Appearance: underweight Orientation: alert, awake, oriented x3 HENMT Face and sinus: other (Perioral staining of tobacco) Eyes General: appearance normal, both eyes and all related structures Neck Other: Carotids are 3+, no bruits, thin neck Chest Other: Increased anterior posterior diameter Resp Other: Diminished respiratory excursion hyperinflated lungs, clear Cardio Rate: regular rate Rhythm: regular rhythm Heart Sounds: no murmurs GI Palpation: no hepatosplenomegaly Auscultation: normal bowel sounds Skin General: no rashes or lesions noted Neuro General: alert, awake Extrem General: no clubbing, cyanosis or edema Psych Affect: normal affect Assessment AND Plan Problems 1. Malignant neoplasm of tonsil C09.9 Plan I am recommending the patient a right internal jugular port placement I have discussed of the technique, benefits, risks and alternatives. He has had an opting to ask and have questions answered. I recommended the patient a esophagogastroduodenoscopy with possible biopsy and percutaneous endoscopic gastrostomy tube placement. He is aware of technique, benefits, risks, alternatives. Had an opting to ask and have questions answered. We will schedule and expedite his care. Cc: Drs. Mendez and Mary Alicea M.D., F.A.C.S. Coding Level of Care Code Comprehensive,moderate Diagnoses Malignant neoplasm of tonsil C09.9 06/18/18 1726 <Electronically signed by Sarthak Alicea MD> Date Sarthak Alicea MD Cosigner Signature: Date (if applicable) CC: Blayne Hernandez MD; Roman Vu MD; Ortiz Nguyen DO ONCOLOGY CONSULTATION Observed: 06/12/2018 Status: F Source: [place] 3:38 PM [facility] REPOSITORY [facility] [address] [place] [id number] Oncology Consultation Date of Service: 06/12/18 1500 MR#: [id number] Acct: [id number] Name: ANDREW STANFORD Rep #: [id number] : 1960 From: Roman Vu MD Age/Sex: 57/M Location: [facility]MD Status: Signed Consult Referring Physician: Dr. Crow Newsome Consult Results: Right oropharyngeal cancer-Tonsil. Subjective Date of Service:: 06/12/18 Chief Complaint: Referred for management of Right Tonsillar cancer History of Present Illness: 57y.o.man presented with persistent sore throat with fluid coming out of the nose on swallowing. He was found to have Right tonsillar mass-4cm. CT neck and chest on 05/17/2018 showed 5cm necrotic R tonsillar mass, no cervical adenopathy, lungs clear, stable subcarinal node 2.5cm. He had Right radical tonsillectomy and Left tonsillectomy on 05/23/2018. 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 He had dental extractions on 06/11/2018. He is now referred for further management. PET/CT is scheduled for next week. Power of Commercial Intern: No Living Will: No Health History: Past Medical History Other Cancer History: TONSIL Past Medical History (Last Reviewed 06/12/18 @ 14:27 by Sarita Minor) Asthma (Acute) Migraines (Acute) HTN (hypertension) (Chronic) Past Surgical History (Last Reviewed 06/12/18 @ 14:27 by Sarita Minor) History of hand surgery (Acute) Hx of foot surgery (Acute) Hx of tonsillectomy (Acute) Family History (Last Reviewed 06/12/18 @ 14:27 by Sarita Minor) Other Lymphoma Allergies/Adverse Reactions: Allergy/AdvReac Type Severity Reaction Status Date / Time bee venom protein (honey bee) Allergy Angioedema Verified 06/12/18 14:27 Review of Systems Constitutional:: Denies: Fever, Sweats, Weight loss, Appetite change, Chills Cardiovascular:: Denies: Chest pain, Palpitations, Dyspnea on exertion, Orthopnea, PND, Shortness of breath Respiratory: Denies: Cough, Hemoptysis, Shortness of Breath, Wheezing Gastrointestinal:: Denies: Abdominal pain, Nausea, Vomiting, Diarrhea, Constipation, Hematochezia Genitourinary: Denies: Dysuria, Hematuria, 15, Flank pain Musculoskeletal:: Denies: Back pain, Myalgia, Arthralgia Skin: Denies: Rash, Skin Changes, Wounds Neurological:: Denies: Headache, Dizziness, Visual changes, Tinnitus, Hearing loss Psychiatric: Denies: Anxiety, Depression, Homicidal Ideations, Suicidal Ideations Vital Signs Height 5 ft 9 in Weight: 60.781 kg Weight in Pounds 134.0 lbs BMI 20.7 Pulse Ox 97 - Physical Exam General: Alert, Oriented x3, No apparent distress HEENT: Atraumatic, PERRLA, EOMI, Normocephalic Oropharynx:: - - edentulous Neck:: Supple, Trachea midline. Negative for: JVD, bilateral Cardiac:: Regular rate, Regular rhythm, Normal S1, Normal S2. Negative for: Murmur Lungs: Clear to auscultation, Excusion symmetrical. Negative for: Rhonchi, Wheezes Abdomen:: Bowel sounds x 4, Soft, Non-tender, Non-distended. Negative for: Hepatosplenomegaly Extremities:: Negative for: Cyanosis, Edema Neurological: Neuro grossly intact Skin:: Negative for: Lesions, Rash, Petechiae, Ecchymosis Psychiatric:: Appropriate affect, Euthymic Lymphatics:: Negative for: Cervical lymphadenopathy, Supraclavicular lymphadenopathy, Axillary lymphadenopathy Diagnostic Data: 05/17/[address]/Chest WITH Contrast IMPRESSION: 1. No new pulmonary infiltrate or mass. Emphysematous and subpleural blebs are again noted. 2. Stable upper normal to borderline enlarged local mediastinal lymph nodes. No new adenopathy. 3. Atherosclerotic vascular calcifications again noted. 4. Stable central depression of the superior T7 vertebral endplate. Electronically Signed: Avery Martinez MD at 16:[address]/Soft Tissue Neck WITH Contrast IMPRESSION: 1. Irregular shaped collection of fluid and gas bubbles surrounded by thickened, mildly enhancing soft tissue in the area of the right faucial tonsil. This may reflect a necrotic malignancy, as per the patient's history, or tonsillar abscess that communicates with the oropharynx, and correlation with direct visualization is advised. 2. Asymmetric dilated appearance of the right piriform sinus compared to the left, likely chronic, and of uncertain etiology and significance. 3. Numerous absent teeth. Small gas lucency is seen in the pocket of a right upper premolar, possibly reflecting local inflammatory change, and there is mucoperiosteal thickening in the adjacent floor of the right maxillary sinus. 4. Atherosclerotic vascular calcifications. No significant stenosis of the carotid artery bifurcations. Electronically Signed: Avery Martinez MD at 16:06 EDT Pathology Data: 05/23/2018 R tonsillectomy report reviewed. MICROSCOPIC DIAGNOSIS A. Right tonsil mass, biopsy: Invasive moderate to poorly squamous cell carcinoma. B. Left tonsil, tonsillectomy: Benign lymphoid follicular hyperplasia, mild. No evidence of malignancy. C. Right tonsil, radical tonsillectomy: Invasive moderate to poorly squamous cell carcinoma with mucosal ulceration. See Comment. AM:brigida 05/25/18 Assessment and Plan Oropharyngeal cancer-Right tonsil squamous cell cancer, P16 negative. Tumor size not clear so will discuss with Pathologist. Subcarinal node. Finished with Dental extractions. Swallowing problems, fluid coming out of nostrils on swallowing.. Discussed management of oropharyngeal cancer with adjuvant chemotherapy and Radiation if disease is localized. Pt wants to do therapy. Discussed risk, benefits and side effects. Will do Cisplatin 100mg/m2 IV every 21 days x 3 during Radiation. Plan: * 1. Proceed with PET/CT. Surgery consult for port placement. * 2. Speech Pathology evaluation. * 3. Will start Chemotherapy on the day that radiation starts. * 4. Increase his Protein intake. Needs nutritional supplements and he cannot chew. * 5. RTC 2 weeks. Medications: Prescriptions This Visit Medication Instructions Recorded Ibuprofen 400 mg PO TID 06/12/18 Primary Care Provider: Blayne Hernandez MD Referring Provider: - Problem List (1) Malignant neoplasm of tonsil Status: Chronic Code Visit Office Visits / Consults: 47800 OP Consult L5 06/12/18 1538 <Electronically signed by Roman Vu MD> Date Roman Vu MD Cosigner Signature: Date (if applicable) CC: Blayne Hernandez MD; Crow Newsome MD CONSULTATION Observed: 06/07/2018 Status: F Source: [place] 3:07 PM [facility] REPOSITORY [facility] Medical Records Department [address] [address] Consultation 06/07/18 1427 MR#: [id number] Acct: [id number] Name: STANFORDANDREW E Rep #: [id number] : 1960 57 From: Ortiz Nguyen DO PCP: Blayne Hernandez MD Status: REG RCR Y Location: [facility] Date of Service: 06/07/18 Referring Provider: Dr. 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 History of Present Illness: 04/05/2018: Patient presented to the emergency department for right lower dental pain and swelling that has been getting worse for several weeks. At this time the pain radiated to the neck and right ear. Patient does not have a dentist. Patient was given antibiotics and referred for dental work. 04/10/2018: Patient presented to the emergency room for persistent discomfort but was also discharged home and referred for dental evaluation after this visit. 04/13/2018: Patient presented to urgent care with continued pain. Patient reports having multiple teeth pulled in the past and has had multiple infected teeth diagnosed. He is scheduled to have remaining teeth extracted on 16 May. He reported to have continued right-sided throat pain at this time. 04/25/2018: Patient was evaluated by internal medicine/primary care due to persistent pain with swallowing concern for pharyngitis, and 10 pound weight loss due to poor eating secondary to pain. On exam it was difficult to evaluate the posterior oropharynx. Referral made to ENT. 04/30/2018: Patient was evaluated by ENT. Complained of having difficulty swallowing starting about 2 months ago after he had 5 teeth pulled, complained also of having 16 pound weight loss in these 2 months and having right ear discomfort, no improvement with antibiotics. On exam there was noted to be a 4 cm mass involving the right tonsil and a 3 cm jugulodigastric lymph node noted in the right anterior cervical region. On NPL there is noted to be a bilateral enlargement of the tonsils with a fungating lesion on the right side. The posterior pharyngeal wall mucosa and tongue base appear normal. The epiglottis and vallecula/piriform sinus are normal with no salivary pooling. No other abnormalities were noted. 05/17/2018: CT soft tissue neck with contrast was performed which demonstrated an irregular area of mildly enhancing and thickened tissue surrounding an irregular collection of fluid and gas bubbles that appears to communicate with the oropharynx within the right tonsil. Overall this measures about 5.2 x 2.5 x 2.8 cm. There is a mildly lobulated prominence of the tongue base but without discrete mass suggestive lymphoid hyperplasia. No enlarged lymph nodes were noted on the exam. 05/17/2018: CT chest was performed which demonstrated a stable 2.5 x 1.4 x 0.9 cm precarinal lymph node as well as other stable upper normal to borderline enlarged lymph nodes in the subcarinal tissues and AP window. Comparisons included a CT chest with contrast from September 14, 2016. 05/23/2018: Patient underwent radical right tonsillectomy and left tonsillectomy. Right tonsil demonstrated invasive moderate to poorly differentiated squamous cell carcinoma with mucosal ulceration, p16 negative. The carcinoma extends to the inked superior, inferior, and posterior margins of excision. There is multifocal perineural invasion and the carcinoma focally involves skeletal muscle tissue. Left tonsil tonsillectomy demonstrated no evidence of malignancy. Radiation Treatment History: No previous history of radiation therapy. No pacemaker or diagnosis of collagen vascular disease. Interval History: Patient presents for initial consultation. He reports having sore throat and about 20 pound weight loss prior to surgery. Since leaving surgery about 2-3 weeks ago he believes his weight has stabilized as his intake has increased. He continues to have discomfort particularly in the right side of his throat. He reports that when he swallows liquid will come out his nose unless he plugs his nose since surgery. He is taking ibuprofen for discomfort occasionally. He is able to drink liquids and eat soft foods at this time. He reports having one episode of bleeding postoperatively on 05/29/2018) presented to the emergency room and was later discharged, he has had no recurrence of bleeding since then. He denies having neck mass, taste change, dry mouth, tingling/numbness or weakness in his arms, otalgia, hoarseness/voice change, coughing/choking with swallowing, dysphagia, chest pain, shortness of breath, cough, hemoptysis, changes in hearing or vision. Patient reports drinking alcohol about 6-7 beers per day for about 35-40 years but quit 6-7 months ago and has not had any alcohol recently. He also reports smoking 1 pack/day for many years and has now cut down to 1/2 pack/day and is attempting to quit. He lives alone and completes all activities of daily living without difficulty, sometimes his daughter will come over and help. He has already been evaluated by a dentist and completed necessary extractions and been cleared for radiation. However, he does report that he wishes the remaining teeth were just removed and he has some occasional dental discomfort when eating. He denies have any other problems or concerns at this time. Family History (Last Updated 06/07/18 @ 12:59 by Sameera Rene RN) Other Lymphoma Medical History (Last Reviewed 06/07/18 @ 12:59 by Sameera Rene RN) Asthma (Acute) Migraines (Acute) HTN (hypertension) (Chronic) Surgical History (Last Reviewed 06/07/18 @ 12:59 by Sameera Rene RN) History of hand surgery (Acute) Hx of foot surgery (Acute) Hx of tonsillectomy (Acute) Radical Tonsillectomy d/t squamous cell carcinoma of right tonsil. Social History - Tobacco Smoking Status Current every day smoker, was previously 1 ppd and now 1/2 ppd Smokeless tobacco usage: Never Years used: 40 Social History - Substance Drug use: Yes: MARIJUANA NOW AND THEN Alcohol use: Yes, previous use 5-6 beers per day for about 35 years, none recently Type of alcohol: BEER Social History - Living Arrangements Patients Living Arrangements Alone Home Medications Medication Instructions Recorded Acetaminophen/Codeine Liquid 12.5 ml PO Q4H PRN PRN udc 05/29/18 [Tylenol W/Cod Liq 300-30MG/12.5ML] Ensure Clear 120 ml PO 4X/DAY liquid 05/29/18 Allergy/AdvReac Type Severity Reaction Status Date / Time bee venom protein (honey bee) Allergy Angioedema Verified 05/29/18 01:22 Health Maintenance Do you regularly see your No primary care physician? Have you ever had a Yes colonoscopy? Date of last colonoscopy: 07/24/12 I have reviewed the medical, surgical, and other pertinent history in details and have updated medication and allergy information in the electronic medical record. Review of Systems: A 12-point review of systems was completed and was negative except for what is noted in the HPI/Interval History and by the nurse. Height/Weight/BMI: Height: 5 ft 8 in Weight: 136.1 lbs (reported baseline 155 lbs) Vital Signs Temperature 99.1 F 06/07/18 12:57 Temperature Source Core 06/07/18 12:57 Physical Exam: ECO [place]AR[place] SCORE: 70-80% CONSTITUTIONAL: Well-developed, well-nourished, and in no apparent distress. HEENT: Mucous membranes moist. There is evidence of resection in the bilateral tonsillar fossa with healing, no gross disease is visualized in the oropharynx or oral cavity. There is no evidence of thrush. Several teeth have been removed although there are multiple remaining upper and lower teeth, 2 extraction sites from 06/06/2018 appear to be healing, one in the upper right and one in the lower left, there is does not appear to be any evidence of exposed bone. No trismus. Pupils are equal, round, and reactive to light and accommodation. Extraocular movements are intact. Sclerae are anicteric. NECK: Supple,with no thyromegaly, and non-tender. Trachea midline. No cervical or supraclavicular adenopathy noted. CARDIAC: Regular rate and rhythm. Normal S1, S2. No murmurs, rubs, or gallops. PULMONARY/CHEST: Lungs are clear to auscultation and percussion bilaterally. No wheezes, rhonchi, or crackles noted. No increased work of breathing. ABDOMINAL: Abdomen soft, non-tender, non-distended. No hepatomegaly. Normoactive bowel sounds in all four quadrants. No guarding, rebound. BACK: Straight and aligned. No CVA tenderness. Axial skeleton non-tender to percussion. EXTREMITIES: Full range of motion in all four extremities, with normal strength equally and symmetrically. No evidence of edema. No clubbing. NEUROLOGICAL EXAM: Alert and oriented x 3. Cranial nerves II through XII are grossly intact. No focal neurological deficit. Speech is fluent. There is no upper or lower extremity sensory deficit or motor deficit. Muscle strength is 5/5 in all muscle groups. Gait and posture are steady. PSYCHIATRIC: Appropriate mood and affect for the clinical situation. 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 Clinically the patient has a high KPS and is able to fully care for himself. I had a detailed discussion with the patient regarding the diagnosis of locally advanced oropharyngeal squamous cell carcinoma. I reviewed the pathologic results from his radical tonsillectomy which showed evidence for poorly differentiated p16 negative squamous cell carcinoma with evidence of multiple positive margins. Upon reviewing the preoperative imaging the tumor appeared to extend from the lower nasopharynx on the right down through the tonsillar fossa and extending down to near the AE fold. I reviewed with the patient the need to have a PET scan for definitive staging and to determine the bulk of residual disease. In the event that there is no metastatic disease I recommended that we pursue chemoradiation therapy given the multiple positive margins and that our goals will be to improve disease control and overall survival. In the event that he happens to have metastatic disease I would recommend initiation with systemic therapy alone given that the bulk of his tumor has been removed. He will be evaluated by medical oncology on 06/12/2018 to discuss systemic therapy options and is currently scheduled for a PET scan on 06/11/2018. I discussed the logistics of external beam radiation therapy including simulation for radiation therapy planning followed by daily treatment for approximately 6.5 weeks. The side effects of radiation therapy, including but not limited to, acute side effects in the form of skin reactions (redness or darkening or desquamation), irritation/sores in the mouth and throat causing pain while swallowing, loss of facial hair, hoarseness, dryness of mouth/thickened saliva, loss of taste sensation and late side effects in the form of persistent dryness of the mouth, loss of taste sensation, fibrosis of the skin in the treated area, decrease in jaw mobility, damage to neck blood vessels, brachial plexopathy, radionecrosis, dental complications, difficulty healing after future surgery, hearing decrease and rare chance of spinal cord damage or secondary cancer, were also explained to the patient. He was also informed that a PEG feeding tube might have to be inserted in case he loses significant weight due to inability to swallow. He was advised to use salt/soda water gargles during 5-6 times a day during RT as well as green tea rinses, do jaw stretching exercises, avoid use of creams or lotions on the face and neck (other than what we provide/recommend) and avoid shaving. He was informed to refrain from smoking and alcohol use during therapy. I discussed the importance of coming for all treatments without missing any doses for the efficacy of the radiation therapy. He has completed dental evaluation and extraction of two teeth on 06/07/18. He does appear to have several remaining teeth in relatively poor health, we have discussed with the dentist and they will plan to complete full mouth extractions on 06/11/18. Given his weight loss I recommended pursuing PEG tube placement as he will most likely require PEG tube support during treatment, he is relatively adamant that he will avoid PEG tube placement but he will be referred for surgical evaluation for discussion and in the event that we need to place a PEG tube hopefully this can be done quickly. Patient was referred to [facility] and nutrition services for evaluation and management during radiation therapy. I will plan to have the patient return for CT simulation about 7 days following dental extractions to start treatment by 6 weeks postop. Thank you for allowing me to participate in the management and care of your patient. If I may answer any questions in the interim, please do not hesitate to contact me at any time. Ortiz Nguyen DO, MS Processing Tech, Department of Radiation Oncology [facility] 06/07/18 5904 <Electronically signed by Ortiz Nguyen DO> Date Ortiz Nguyen DO Cosigner Signature (if applicable): Date CC: Blayne Hernandez MD; Crow Newsome MD; Roman Vu MD; Seb Powell DO Signed EMERGENCY DEPARTMENT Observed: 05/29/2018 Status: F Source: STOUT SUMMARY 8:56 AM [facility] REPOSITORY [facility] Medical Records Department [address] [place] [address] Emergency Department Summary 05/29/18 0813 MR#: [id number] Acct: [id number] Name: ANDREW STANFORD Rep #: [id number] : 1960 57 From: Ken Ramon MD PCP: Blayne Hernandez MD Status: ADM MATTY - ER Visit Summary Date of Service: 05/29/18 Chief Complaint: Postoperative bleeding History of Present Illness: The patient is a 57 M presenting for evaluation secondary to postoperative bleeding. Patient had a tonsillectomy and cancerous tumor removed on Monday. Patient states over the course of the weekend he started to have bleeding issues. He reports that he has had a gradual increase in bleeding since yesterday. He states he was seen by his surgeon yesterday, and was recommended to continue conservative management. Tonight patient states that every time he is laying flat he is coughing up a large clots. Patient does endorse that he is feeling somewhat lightheaded associated with this. He is not on any sort of anticoagulants. Physical Examination: Vital signs within normal limits. Cachectic appearing male not in physiologic distress, but perpetually spitting up and/or coughing up blood. Oral exam shows clots that seem to be predominantly on the left side of the patient's oropharynx with postoperative changes noted. Remainder the physical otherwise unremarkable. Test Results: CBC chemistry and coagulation panels are pending Emergency Department Course and Treatment: Patient presented for evaluation secondary to postoperative bleeding. I discussed patient's case with his surgeon, and the patient currently is not at risk for airway compromise but is spitting up large clots and we do feel that the patient likely requires admission for observation and will be taken to the operating room for cautery in the morning. She was admitted under Dr. Newsome. Disposition: Admission Impression: 1. Postoperative bleeding This note was generated with Nano[employer] dictation software. It may contain incorrect words, spelling, and punctuation that were not noted in review of the chart prior to signing ED Disposition - Plan for ED Patient: Disposition: Acute Care Hospital [facility] Chief Complaint: Other, Pain/Inj What to do if you have Problems For any increased pain, shortness of breath, bleeding, nausea or vomiting, chest pain, or any unexpected problems, contact your Primary Care Provider. Call [facility] ([phone]) or report to the closest Emergency Room. Call 911 if necessary. 05/29/18 0856 <Electronically signed by Ken Ramon MD> Date Ken Ramon MD Cosigner Signature (If Indicated): Date ___ CC: Blayne Hernandez MD DISCHARGE INSTRUCTION Observed: 05/29/2018 Status: F Source: STOUT 7:55 AM [facility] REPOSITORY [facility] Medical Records Department [address] [place] [address] [place] [address] Instructions for Home/Discharge Instructions 05/29/18 0754 MR#: [id number] Acct: [id number] Name: ANDREW STANFORD Rep #: [id number] : 1960 57 From: Crow Newsome MD PCP: Blayne Hernandez MD Status: ADM MATTY - Discharge Diagnoses Current Active Problems: Current Active and Chronic Problems (Last Updated 04/13/18 @ 11:01 by Melissa Snell) Oropharyngeal bleeding (Acute) Your food should be the consistency of: Mechanical soft (ground) Your liquids should be the consistency of: Regular/Thin Discharge Activity: Return to Normal Activity, May not drive while taking narcotic pain medications. Call your doctor if your incision/area has: Sudden Increased Bleeding Call your doctor if you observe: Fever of 101 or Higher, Uncontrolled pain Allergies/Adverse Reactions: Allergies bee venom protein (honey bee) Allergy (Verified 05/29/18 01:22) Angioedema Medications to take at Discharge Aspirin/Acetaminophen/Caffeine [Headache Relief Tablet] 1 each PO PRN PRN 05/21/18 Acetaminophen Liquid [Tylenol Liquid] 500 mg PO Q4H PRN PRN udc 05/23/18 Ibuprofen Liquid [Motrin Liquid] 400 mg PO Q8H PRN PRN udc 05/23/18 Acetaminophen/Codeine Liquid [Tylenol W/Cod Liq 300-30MG/12.5ML] 12.5 ml PO Q4H PRN PRN 05/29/18 Primary Care Physician: Blayne Hernandez MD [Primary Care Provider] - Test Results: Test results from this visit will be discussed in further detail at your follow-up appointment, if applicable. Please Follow Up With: Crow Newsome MD When: 1 week 05/29/18 0755 <Electronically signed by Crow Newsome MD> Date Crow Newsome MD CC: Blayne Hernandez MD HISTORY AND PHYSICAL Observed: 05/29/2018 Status: F Source: STOUT EXAM 7:51 AM [facility] Medical Records Department [address] [place] [address] History and Physical 05/29/18 0745 MR#: [id number] Acct: [id number] Name: HIENANDREW April Rep #: [id number] : 1960 57 From: Crow Newsome MD PCP: Blayne Hernandez MD Status: ADM MATTY Y Location: [place] [address] Problem List (1) Malignant neoplasm of tonsil Status: Chronic (2) Oropharyngeal bleeding Status: Acute History of Present Illness Date of Admission: 05/29/18 Chief Complaint: bleeding from throat after radical tonsillectomy The patient is a 57 year old M who presents 1 week status post 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 He had been seen in the office one day prior with complaints of some blood-tinged sputum however no active bleeding, clot, or other significant abnormality was noted although there was some bloody staining of the secretions this was of no significant quantity and reassurance was offered. He presented to the emergency department with complaints of again bleeding from the oropharynx. With consultation with the ER physician, the bleeding was not felt to be of a severe quantity although some blood clotting was expectorated and admission for observation with consideration of operative control of hemorrhage should this persist was advised and he was admitted for overnight observation. He reports that he continues to suffer throat pain although this is improving. He continues to have dysphagia for solids but has been tolerating liquids. He denies any trauma to the throat, bleeding tendencies, or anticoagulation therapy. He had otherwise been in his usual state of health. [] Past Medical History Past Medical History (Chronic Problems): Chronic Problems (Last Updated 04/13/18 @ 11:01 by Melissa Snell) Malignant neoplasm of tonsil (Chronic) Medical History: Medical History (Last Updated 04/13/18 @ 11:01 by Melissa Snell) Asthma J45.909 Migraines G43.909 HTN (hypertension) I10 Allergies bee venom protein (honey bee) Allergy (Verified 05/29/18 01:22) Angioedema Home Medications: Ambulatory Orders Medication Instructions Recorded RX: Aspirin/Acetaminophen/Caffeine 1 each PO PRN PRN 05/21/18 [Headache Relief Tablet] RX: Acetaminophen Liquid [Tylenol 500 mg PO Q4H PRN PRN udc 05/23/18 Surgical History: Surgical History (Last Updated 04/25/18 @ 15:36 by Nava Francis) History of hand surgery Z98.890 Hx of foot surgery Z98.890 Smoking Status: Current every day smoker Tobacco Use: Cigarettes Review of Systems Constitutional: Reports: Anorexia. Denies: Fever, Night Sweats Eyes: Denies: Double vision, Redness, Vision Change HEENT: Reports: Difficulty Swallowing, Sore Throat. Denies: Difficulty Hearing, Hearing Changes, Nasal bleeding Cardiovascular: Denies: Chest Pain, Claudication Respiratory: Reports: Hemoptysis. Denies: Cough Gastrointestinal: Denies: Abdominal Pain Genitourinary: Denies: Dysuria VTE Information - Inpt Only VTE Present on Admission: No VTE Pharm Prophylaxis ordered?: No Reason prophylaxis not ordered:: Medical Contraindication - bleeding Patient Problems: Active and Suspected Problems (Last Updated 04/13/18 @ 11:01 by Melissa Snell) Oropharyngeal bleeding (Acute) - Physical Exam General: Alert, Oriented x3 HEENT: Atraumatic, PERRLA Oral: Moist Mucosa, - - eshcar bilateral tonsillar fossa, blood clot on right reported by ED Neck: Supple Psych/Mental Status: Alert and oriented to time, place, person, mood and affect Vital Signs Temp Pulse Resp BP Pulse Ox 97.4 F L 77 18 139/73 H 100 05/29/18 03:22 05/29/18 03:22 05/29/18 03:22 05/29/18 03:22 05/29/18 03:22 Oxygen Delivery Method Room Air Weight: 58.8 kg Body Mass Index (BMI) 19.1 Finger Stick Blood Glucose 108 Intake and Output for Last 24 Hours Intake Total 240 / 240 Balance 240 / 240 Laboratory Tests Past 24 Hrs Assessment/Plan All Active Problems (Last Updated 04/13/18 @ 11:01 by Melissa Snell) Oropharyngeal bleeding (Acute) Painful swallowing (Acute) Pharyngitis, acute (Acute) Infected dental caries (Acute) Right foot pain (Acute) Arthritis of foot, right (Acute) Displaced fracture of calcaneus (Acute) Andrew is a 57-year-old male status post tonsillectomy for squamous cell carcinoma who has a second presentation for complaints of oropharyngeal bleeding. He was admitted for observation with consideration of operative control of bleeding should this persist as well as IV hydration and monitoring. 05/29/18 0751 <Electronically signed by Crow Newsome MD> Date Crow Newsome MD Cosigner Signature: Date (if applicable) CC: Blayne Hernandez MD; Crow Newsome MD Signed CBC W/DIFF, AUTOMATED Collected: 05/29/2018 Status: F Source: MARIAH 1:50 AM [facility] REPOSITORY TYPE CODE TESTS RESULT OUT OF RANGE REFERENCE UNITS LAB L100.1000 4.4-11.0 K/mm3 Normal WBC 8.0 LAB L100.1200 4.6-6.2 M/mm3 Low RBC 3.52 LAB L100.1300 13.0-16.5 g/dl Low HGB 11.8 LAB L100.1400 40-54 % Low HCT 35.5 LAB L100.1500 80-94 fL High MCV 100.9 LAB L100.1600 27.0-32.0 pg High MCH 33.5 LAB L100.1700 32-36 g/gl Normal MCHC 33.2 LAB L100.1810 11.6-14.6 % Normal RDW CV 12.4 LAB L100.1820 35.1-43.9 fl High RDW SD 45.6 LAB L100.1900 150-450 K/mm3 Normal PLT 367 LAB L100.2000 6.2-12.0 fl Normal MPV 9.4 LAB L100.2100 47-70 % Normal NEUT% 65.2 LAB L100.2200 19-41 % Low LY% 18.1 LAB L100.2300 0-10 % High MONO% 12.4 LAB L100.2400 0-5 % Normal EO% 3.9 LAB L100.2500 0-1 % Normal BASO% 0.3 LAB L100.2550 0.0-0.9 % Normal IM GRAN % 0.100 Result Comment: IG% - Immature Granulocytes (promyelocytes, myelocytes and metamyelocytes) > 1% indicates that a LEFT SHIFT is Present. LAB L100.2620 2.0-7.7 X10 3/uL Normal Absolute Neut 5.2 LAB L100.2720 0.83-4.51 X10 3/ul Normal Absolute Lymph 1.44 Performed By: #### L100.0100 #### [facility] [address] [facility], [address] PROTHROMBIN TIME W/INR Collected: 05/29/2018 Status: F Source: STOUT 1:50 AM [facility] REPOSITORY TYPE CODE TESTS RESULT OUT OF RANGE REFERENCE UNITS LAB L300.4150 11.7-14.9 SECONDS Normal PROTIME 13.8 LAB L300.4200 Normal INR 1.1 Performed By: #### L300.3900, L300.4310 #### [facility] [address] [place], [place], [address] PARTIAL THROMBOPLAST Collected: 05/29/2018 Status: F Source: STOUT TIME 1:50 AM [facility] REPOSITORY TYPE CODE TESTS RESULT OUT OF RANGE REFERENCE UNITS LAB L300.4310 24.1-36.2 Seconds Normal PTT 33.8 Performed By: #### L300.3900, L300.4310 #### [facility] [address] [place], [address] BASIC METABOLIC Collected: 05/29/2018 Status: F Source: MARIAH PROFILE (BMP) 1:50 AM [facility] REPOSITORY TYPE CODE TESTS RESULT OUT OF RANGE REFERENCE UNITS LAB L501.0100 74-106 mg/dL Normal GLU 85 Result Comment: Please note revised GLUCOSE reference range effective 2017. LAB L501.1000 7-18 mg/dL High BUN 21 LAB L501.1100 0.70-1.30 mg/dL Normal CREAT,SERUM 0.85 Result Comment: The validity of the calculated GFR AND GFRAA in patients over 70 years has not been determined. Clinical correlation is essential. LAB L501.1110 >60 mL/min Normal EST GFR 100 Result Comment: Non- GFR Calc LAB L501.1115 >60 mL/min Normal EST GFR - AA 120 Result Comment: GFR Calc LAB L501.1255 ml/min Normal Estimated CRCL 85.14 LAB L501.1300 10-20 RATIO High BUN/CRE 24.8 LAB L501.2200 8.5-10 mg/dL Normal .1 CA 9.0 LAB L501.5300 136-14 mmol/L Normal 5 NA 138 LAB L501.5600 3.5-5. mmol/L Normal 1 K 3.7 LAB L501.5900 98-107 mmol/L Normal CL 102 LAB L501.6100 21.0-3 mmol/L Normal 2.0 CO2 27.0 LAB L501.6200 5-15 Normal GAP 9 Performed By: #### L500.2500 #### [facility] [address] [place], [address] DISCHARGE INSTRUCTION Observed: 05/23/2018 Status: F Source: MARIAH 10:07 AM [facility] REPOSITORY [facility] Medical Records Department [address] [place] [address] Instructions for Home/Discharge Instructions 05/23/18 1006 MR#: [id number] Acct: [id number] Name: ANDREW STANFORD Rep #: [id number] : 1960 57 From: Crow Newsome MD PCP: Blayne Hernandez MD Status: REG SDC Discharge Activity: Return to Normal Activity, May not drive while taking narcotic pain medications. Call your doctor if your incision/area has: Sudden Increased Bleeding Call your doctor if you observe: Fever of 101 or Higher, Uncontrolled pain Allergies/Adverse Reactions: Allergies bee venom protein (honey bee) Allergy (Verified 05/21/18 16:12) Angioedema Medications to take at Discharge omega-3 fatty acids 1,000 mg capsule 1,000 mg PO DAILY 04/13/18 Acetaminophen [Tylenol Extra Strength] 500 - 1,000 mg PO 4X/DAY 05/21/18 Aspirin/Acetaminophen/Caffeine [Headache Relief Tablet] 1 each PO PRN PRN 05/21/18 Orders to be completed after discharge: 12 Lead EKG [[facility]] Time Frame: 05/23/18, Location: None Selected Primary Care Physician: Blayne Hernandez MD [Primary Care Provider] - Test Results: Test results from this visit will be discussed in further detail at your follow-up appointment, if applicable. Please Follow Up With: Crow Newsome MD When: 2 weeks 05/23/18 1007 <Electronically signed by Crow Newsome MD> Date Crow Newsome MD CC: Blayne Hernandez MD OPERATIVE REPORT Observed: 05/23/2018 Status: F Source: STOUT 10:06 AM [facility] Medical Records Department [address] [place] [address] Operative Report 05/23/18 0957 MR#: [id number] Acct: [id number] Name: ANDREW STANFORD Rep #: [id number] : 1960 57 From: Crow Newsome MD PCP: Blayne Hernandez MD Status: REG [facility] Y Location: [place] [address] Problem List (1) Malignant neoplasm of tonsil Status: Chronic Report of Operation Date of Procedure: 05/23/18 Pre-Operative Diagnosis: Malignant tumor of right tonsil Post-Operative Diagnosis: same Surgery/Procedure Performed:: Radical right tonsillectomy, left tonsillectomy Description of Surgical Findings:: Andrew is a 57-year-old male who presents with a large ulcerated painful lesion of the right tonsil. He suffered referred otalgia on that side and foul- smelling quality with discharge. Examination showed a large ulcerated lesion of the right tonsil and CT scan confirmed a eroding mass involving the right tonsil that extended deeply into the surrounding parapharyngeal musculature. Operative investigation with biopsy and radical tonsillectomy was offered for both identification and treatment and the patient was eager to proceed. The risks, alternatives, potential benefits, and complications were discussed at length and any questions answered to the patient and/or caregiver's satisfaction. Witnessed informed consent was obtained in the office, and the patient and/or caregiver was agreeable to proceed. Procedure went as follows: The patient was identified in the preoperative holding, brought to the operating room, was placed under general anesthesia and intubated. When appropriate anesthesia was obtained, the head of bed was rotated and the patient prepped and draped in usual sterile fashion. A Jaqueline Abdirahman mouthgag was then placed and the patient suspended from the [place] stand. The oral cavity examined and is noted to have 2+ cryptic tonsillar hypertrophy on the left side. On the right side, the tonsil was involved with a large ulcerating indurated lesion. This lesion extended inferiorly to the lingual tonsils and tongue base and superiorly into the nasopharynx. This appeared to spare the eustachian tube opening. Palpation revealed this to be affixed to the pharyngeal musculature however did not appear to extend deeply into the perivascular sheath. Beginning on the left side the right tonsil was then grasped with a curved tenaculum and dissected from the underlying capsule with monopolar cautery. This was then sent as specimen. A radical tonsillectomy was then carried out on the right side after biopsy of the lesion confirmed invasive squamous cell carcinoma. The edge of the palpable mass was then grasped at the midportion and using monopolar cautery a plane developed between the tumor and the deeper pharyngeal tissues. This was followed superiorly where the lateral aspect of the soft palate extending into the nasopharynx involved with the lesion were then excised. The mass was then developed inferiorly along the parapharyngeal plane and excised along the posterior pharyngeal wall and extending onto the tongue base where this was additionally resected. This was then sent as pathologic specimen. The deep and middle portion of the tumor invaded into the pharyngeal fatty tissues which limited development of a wide surgical margin with suspected residual disease at this location although all visible tumor was resected with the primary specimen. The carotid artery was not exposed during the course of the dissection and no residual flap was felt to be necessary. The oral cavity was then copiously irrigated with saline solution and suctioned to clear any residual blood and debris. Inspection of the surgical excision site revealed no point bleeding. The patient was then returned to anesthesia, revived and extubated having tolerated the procedure well. Type of Anesthesia:: General Anesthesiologist: Floyd Richardson Special Medications: none Specimen's removed: right tonsillar mass with radical tonsillectomy, left tonsil Drains: none Estimated Blood Loss (mL): 25 mL Fluids Replaced: 1200 mL Grafts/Implants Used: none - Complications none - Admit VTE Documentation VTE Present on Admission: No VTE Mechan Device Prophylaxis: SCD's VTE Pharm Prophylaxis ordered?: No 05/23/18 1006 <Electronically signed by Crow Newsome MD> Date Crow Newsome MD CC: Blayne Hernandez MD; Crow Newsome MD Signed TONSILS Observed: 05/23/2018 Status: F Source: MARIAH 8:55 AM [facility] REPOSITORY Patient: ANDREW STANFORD : 1960 (57/M) Acct Num: [id number] Phys: Crow Newsome MD Unit Num: [id number] Loc: [facility] Specimen: [id number] Received: 05/23/1829 Spec Type: TONSILS TISSUES 1 TISSUES: A. Tonsil, NOS B. Tonsil, NOS C. Tonsil, NOS COMMENT C. Immunohistochemistry ([id number]) supports the above diagnosis. The carcinoma extends to the inked superior, inferior and posterior margins of excision. There is multifocal perineural invasion by carcinoma and the carcinoma focally involves skeletal muscle tissue. Case has been reviewed in consultation with Dr. Beaver who concurs with the above diagnosis. IDC:[email or web address] FROZEN SECTION DIAGNOSIS A. Right tonsil mass, biopsy: Invasive squamous cell carcinoma. AM: 05/23/18 GROSS DESCRIPTION A - Received fresh for frozen section consultation labeled with the patient's name is a specimen designated right tonsil mass. The specimen consists of a single fragment of pink-wooten soft tissue measuring 0.6 x 0.2 x 0.2 cm. The specimen is totally submitted in one block for frozen section consultation. / AM: 05/23/18 B - Received in formalin labeled with the patient's name and designated left tonsil. The specimen consists of a tonsil that weighs 1.5 gm and measures 3 x 1.5 x 1 cm. The external surface is pink-wooten, smooth, glistening and somewhat lobulated. Focally it is hemorrhagic, granular and bears cautery artifact. Serial cross sections through the tonsil reveal normal tonsillar architecture. The entire specimen is submitted in two cassettes. / SJ: 05/23/18 C - Received in formalin labeled with the patient's name and designated right radical tonsillectomy. The specimen consists of a tonsil measuring 6 x 4 x 2.5 cm and weighing 18 gm. The specimen is differentially inked as follows: superior - blue, inferior - green and posterior - black. The specimen had previously been bisected by the surgeon. The cut surfaces are firm, wooten-white in color. The specimen is serially sectioned and submitted in its entirety in ten cassettes. / AM: 05/24/18 TC: 0 CPT: 27180 x2, 18463, 40215, 32699 HEADER OPERATION: Tonsillectomy PRE-OP DIAGNOSIS: Left tonsil mass TISSUE SUBMITTED: A - Right tonsil mass for frozen section at 0924, B - Left tonsil, C - Right radical tonsillectomy MICROSCOPIC DESCRIPTION Slides are reviewed. MICROSCOPIC DIAGNOSIS A. Right tonsil mass, biopsy: Invasive moderate to poorly squamous cell carcinoma. B. Left tonsil, tonsillectomy: Benign lymphoid follicular hyperplasia, mild. No evidence of malignancy. C. Right tonsil, radical tonsillectomy: Invasive moderate to poorly squamous cell carcinoma with mucosal ulceration. See Comment. AM:brigida 05/25/18 Signed [facility] 05/28/18 <signature on file> Performed By: #### PTONS #### [facility] [address] [place] [address]. [place], [address] IMMUNOHISTOCHEMISTRY Observed: 05/23/2018 Status: F Source: STOUT 12:00 AM [facility] REPOSITORY Patient: ANDREW STANFORD : 1960 (57/M) Acct Num: [id number] Phys: Crow Newsome MD Unit Num: [id number] Loc: [facility] Specimen: [id number] Received: 05/25/180 Spec Type: IMMUNO TISSUES 1 TISSUES: C. Tonsil, NOS SPECIMEN INFORMATION: Tissue Source: C - Right radical tonsillectomy Clinical Info: Left tonsil mass Specimen Number: [id number] C1 CPT code: 14392, 42842 x6 METHODOLOGY: Deparaffinized sections of prefer/formalin-fixed tissue or PAP/DQ stained slides are incubated with monoclonal/polyclonal antibodies/oligonucleotide probes. Localization is made via biotin free immunoperoxidase method. Appropriate controls are performed and reacted as expected. Results on target cell population are indicated in the following table: RESULTS: ANTIBODY / CLONE RESULT Block C1 P40 (BC28) positive CK5-6 (D5 AND 1684) positive CK14 (LL002) positive S-100 (4C4.9) negative Desmin (CE-R-11) negative P16 (E6H4) negative Ki-67 (30-9) positive, moderate These tests were developed and their performance characteristics determined by [facility]. They may not have been cleared or approved by the U.S. Food and Drug Administration. The FDA has determined that such clearance or approval is not necessary. INTERPRETATION: C. 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 Case has been reviewed in consultation with Dr. Beaver who concurs with the above diagnosis. IDC:[id number] AM:brigida 05/30/18 PHYSICIAN AND INSTITUTION [address] [address] Signed [facility] 05/30/18 <signature on file> Performed By: #### PIMM #### [facility] [address] [place], [address] 12 LEAD ELECTROCARDIOGRAM Observed: 05/22/2018 Status: F Source: MARIAH 9:09 AM [facility] REPOSITORY [facility] Cardiovascular Services [address] [place] [address] 12 Lead EKG 05/18/18 1324 MR#: [id number] Acct: [id number] Name: ANDREW STANFORD Rep #: [id number] : 1960 57 From: Luis Tejada MD Attending Dr: Crow Newsome MD Status: REG CLI Ordering Dr: Crow Newsome MD Date: 05/18/18 Location: [facility] Sex: M C Admitted: Test Reason : PRE-OP Blood Pressure : / mmHG Vent. Rate : 082 BPM Atrial Rate : 082 BPM P-R Int : 142 ms QRS Dur : 092 ms QT Int : 362 ms P-R-T Axes : 060 066 049 degrees QTc Int : 422 ms Normal sinus rhythm Normal ECG Confirmed by LUIS TEJADA ([id number]), book editor ALAINA ANDINO ([id number]) on 05/22/2018 9:09:11 AM Referred By: Crow Newsome Confirmed By:LUIS TEJADA 05/22/18 0909 Date Luis Tejada MD CC: Blayne Hernandez MD; Crow Newsome MD Signed SOFT TISSUE NECK WITH Observed: 05/17/2018 Status: F Source: MARIAH CONTRAST 1:15 PM [facility] REPOSITORY [facility] Imaging Services [address] [place] [address] Soft Tissue Neck WITH Contrast MR#: [id number] Acct: [id number] Name: ANDREW STANFORD Rep #: [id number] : 1960 M 57 From: Freddie Martinez MD PCP: Blayne Hernandez MD Status: REG CLI Study: Soft Tissue Neck WITH Contrast Date of Exam: 05/17/18 Exam# [id number] Ordering Dr: Crow Newsome MD STUDY: CT SOFT TISSUE NECK WITH CONTRAST REASON FOR EXAM: Male, 57 years old. Malignant neoplasm of the tonsil, throat pain x 2 months. RADIATION DOSAGE (If Supplied By Facility): CTDIvol = ( 12.88 ) mGy, DLP = ( 737.61 ) mGycm TECHNIQUE: The patient was scanned in a multi-detector CT scanner. High resolution transaxial imaging was performed following intravenous administration of 100mL ml of Isovue 300 contrast material. Sagittal and coronal images were reconstructed. Individualized dose optimization techniques were used for this CT. COMPARISON: None. FINDINGS: Normal bilateral parotid glands. Normal bilateral balance truer spaces. Normal bilateral parapharyngeal spaces. There is atherosclerotic calcific plaquing of the visualized thoracic aortic arch and proximal brachiocephalic arteries. Atherosclerotic calcific plaquing with minor narrowing also seen at the right carotid artery bifurcation. Normal bilateral sublingual and submandibular glands and spaces. Normal visualized nasopharynx. Normal retropharyngeal space. Normal perivertebral space. The area of the right faucial tonsil is an irregular area of mildly enhancing, thickened tissue surrounding an irregular collection of fluid and gas bubbles that appears to communicate with the oropharynx. Overall, this measures roughly 5.15 x 2.5 x 2.8 cm. There is a mildly lobulated prominence of the tongue base, but without a discrete mass, suggestive of lymphoid hyperplasia. The visualized cervical lymph nodes (levels I-) are within normal size limits, and maintain normal morphology. There is no demonstrated solid or cystic mass lesion. There is no abnormal contrast enhancement. Normal epiglottis, bilateral vallecula and hypopharynx. The pre-epiglottic and paraglottic adipose spaces are normal. There is a 6.5 mm coarse calcification in the left cricoid cartilage. There is minimal asymmetric thickening of the right vocal cord. There is a dilated appearance of the right piriform sinus compared to the left. Normal subglottic trachea. Normal bilateral lobes of the thyroid gland. There are numerous subpleural blebs in the periphery of the visualized lung apices. Rounded area of mucoperiosteal thickening or sessile mucous inclusion cyst seen in the inferior margin of the right maxillary sinus. Just inferior to this, there is an absent right upper premolar with small gas lucency in the root pocket of the superior alveolar ridge that may reflect local inflammation. Numerous other teeth are also absent. There is multilevel degenerative changes of the cervical spine. CT/Soft Tissue Neck WITH Contrast IMPRESSION: 1. Irregular shaped collection of fluid and gas bubbles surrounded by thickened, mildly enhancing soft tissue in the area of the right faucial tonsil. This may reflect a necrotic malignancy, as per the patient's history, or tonsillar abscess that communicates with the oropharynx, and correlation with direct visualization is advised. 2. Asymmetric dilated appearance of the right piriform sinus compared to the left, likely chronic, and of uncertain etiology and significance. 3. Numerous absent teeth. Small gas lucency is seen in the pocket of a right upper premolar, possibly reflecting local inflammatory change, and there is mucoperiosteal thickening in the adjacent floor of the right maxillary sinus. 4. Atherosclerotic vascular calcifications. No significant stenosis of the carotid artery bifurcations. Electronically Signed: Avery Martinez MD at 16:06 EDT , Service support , CC: Blayne Hernandez MD; Crow Newsome MD Photo Cartographer: Signed CHEST WITH CONTRAST Observed: 05/17/2018 Status: F Source: STOUT 1:15 PM [facility] REPOSITORY [facility] Imaging Services [address] [place] [id number] Chest WITH Contrast MR#: [id number] Acct: [id number] Name: ANDREW STANFORD Rep #: [id number] : 1960 M 57 From: Freddie Martinez MD PCP: Blayne Hernandez MD Status: REG CLI Study: Chest WITH Contrast Date of Exam: 05/17/18 Exam# [id number] Ordering Dr: Crow Newsome MD STUDY: CT CHEST/THORAX WITH CONTRAST REASON FOR EXAM: Male, 57 years old. Newly diagnosed malignant neoplasm of the tonsil, throat pain x 2 months, smokes 1/2-1 pack per day. RADIATION DOSAGE (If Supplied By Facility): CTDIvol = ( 12.88 ) mGy, DLP = ( 737.61 ) mGycm TECHNIQUE: Transaxial imaging was performed following intravenous administration of 100mL ml of Isovue 300 contrast material. Multiplanar coronal and sagittal images were reformatted. Individualized dose optimization techniques were used for this CT. COMPARISON: PA and lateral chest x-rays on 4 images October 31, 2016; CT chest with IV contrast September 14, 2016. FINDINGS: There are numerous subpleural blebs in the periphery of the lung apices. A few small emphysematous blebs or other pneumatoceles are also noted in the mid and upper lung zones. No pulmonary infiltrate or mass. There is no demonstrated pleural abnormality. Normal heart and pericardium. There are minor calcifications of the coronary arteries. There is a stable 2.45 x 1.4 x 0.95 cm precarinal lymph node as well as other stable upper normal to borderline enlarged lymph nodes in the subcarinal tissues and aorticopulmonary window. Normal hilar regions. Normal enhanced pulmonary arteries. There is atherosclerotic calcification of the aortic arch, proximal brachiocephalic arteries and, to a lesser degree, the descending thoracic aorta. Mild central depression of the superior aspect of the T7 vertebra is unchanged. There is no demonstrated abnormality of the visualized upper abdomen. CT/Chest WITH Contrast IMPRESSION: 1. No new pulmonary infiltrate or mass. Emphysematous and subpleural blebs are again noted. 2. Stable upper normal to borderline enlarged local mediastinal lymph nodes. No new adenopathy. 3. Atherosclerotic vascular calcifications again noted. 4. Stable central depression of the superior T7 vertebral endplate. Electronically Signed: Avery Martinez MD at 16:46 EDT , Service support , CC: Blayne Hernandez MD; Crow Newsome MD Photo Cartographer: Signed CBC W/DIFF, AUTOMATED Collected: 05/17/2018 Status: F Source: MARIAH 1:07 PM [facility] REPOSITORY TYPE CODE TESTS RESULT OUT OF RANGE REFERENCE UNITS LAB L100.1000 4.4-11.0 K/mm3 High WBC 12.6 LAB L100.1200 4.6-6.2 M/mm3 Low RBC 3.68 LAB L100.1300 13.0-16.5 g/dl Low HGB 12.5 LAB L100.1400 40-54 % Low HCT 37.8 LAB L100.1500 80-94 fL High MCV 102.7 LAB L100.1600 27.0-32.0 pg High MCH 34.0 LAB L100.1700 32-36 g/gl Normal MCHC 33.1 LAB L100.1810 11.6-14.6 % Normal RDW CV 12.9 LAB L100.1820 35.1-43.9 fl High RDW SD 48.9 LAB L100.1900 150-450 K/mm3 Normal PLT 341 LAB L100.2000 6.2-12.0 fl Normal MPV 9.6 LAB L100.2100 47-70 % High NEUT% 76.4 LAB L100.2200 19-41 % Low LY% 12.4 LAB L100.2300 0-10 % Normal MONO% 9.6 LAB L100.2400 0-5 % Normal EO% 1.2 LAB L100.2500 0-1 % Normal BASO% 0.2 LAB L100.2550 0.0-0.9 % Normal IM GRAN % 0.200 Result Comment: IG% - Immature Granulocytes (promyelocytes, myelocytes and metamyelocytes) > 1% indicates that a LEFT SHIFT is Present. LAB L100.2620 2.0-7.7 X10 3/uL High Absolute Neut 9.7 LAB L100.2720 0.83-4.51 X10 3/ul Normal Absolute Lymph 1.57 Performed By: #### L100.0100 #### [facility] [address] [place], [place], [id number] BASIC METABOLIC Collected: 05/17/2018 Status: F Source: MARIAH PROFILE (BMP) 1:07 PM [facility] REPOSITORY TYPE CODE TESTS RESULT OUT OF RANGE REFERENCE UNITS LAB L501.0100 74-106 mg/dL Normal GLU 83 Result Comment: Please note revised GLUCOSE reference range effective 2017. LAB L501.1000 7-18 mg/dL Normal BUN 14 LAB L501.1100 0.70-1.30 mg/dL Normal CREAT,SERUM 0.98 Result Comment: The validity of the calculated GFR AND GFRAA in patients over 70 years has not been determined. Clinical correlation is essential. LAB L501.1110 >60 mL/min Normal EST GFR 84 Result Comment: Non- GFR Calc LAB L501.1115 >60 mL/min Normal EST GFR - AA 101 Result Comment: GFR Calc LAB L501.1300 10-20 RATIO Normal BUN/CRE 14.2 LAB L501.2200 8.5-10.1 mg/dL CA Normal 9.4 LAB L501.5300 136-145 mmol/L NA Normal 138 LAB L501.5600 3.5-5.1 mmol/L K Normal 3.9 LAB L501.5900 98-107 mmol/L CL Normal 102 LAB L501.6100 21.0-32.0 mmol/L Normal CO2 26.0 LAB L501.6200 5-15 Normal GAP 10 Performed By: #### L500.2500 #### [facility] [address] [place], [address] INTERNAL MEDICINE Observed: 04/26/2018 Status: F Source: MARIAH OFFICE VISIT 6:03 PM [facility] REPOSITORY [facility] [address] [place] [address] [place] [address] OFFICE VISIT Date of Service: 04/25/18 MR#: [id number] Acct: [id number] Name: HIENANDREW April Rep #: [id number] : 1960 Provider: Blayne Hernandez MD Age/Sex: 57/M Location: [facility] Status: Signed Intake Vital Signs04/25/18 Height 5 ft 9 in 04/25/18 Weight: 140 lb Intake Visit Reasons: EST CARE Spinner Open End Required: No Accompanied by: None Is patient in pain?: Yes (throat) Pain scale (1-10): 7 Allergies bee venom protein (honey bee) Allergy (Verified 04/13/18 10:59) Anaphylaxis Medications omega-3 fatty acids 1,000 mg capsule 1,000 mg PO DAILY 04/13/18 [History Confirmed 04/13/18] PFSH Medical History Asthma (Acute) Migraines (Acute) HTN (hypertension) (Chronic) Surgical History History of hand surgery (Acute) Hx of foot surgery (Acute) Social History Smoking Status: Current every day smoker alcohol intake: current details: 2x/week HPI HPI Details: ANDREW STANFORD, is a 57yo M who presents to the office today due to concerns about persistent pain on swallowing. Said to have been ongoing for over a month. Has been managed for bacterial pharyngitis without any improvement in his symptoms. He also did follow-up with his dentist for infected dental caries however pain has persisted. He denies chills, fever or any significant weight changes (has lost 10 pounds in the last month due to poor eating secondary to pain on swallowing). He has a history of chronic tobacco abuse. ROS Const Constitutional: Positive for weight change and sleep problems; no body ache, chills, fatigue, fever(s), frequent falls, headache(s), change in appetite, snoring, excessive sweating or weakness Eyes Eyes: No blurry vision, change in vision, eye pain or light sensitivity ENT ENT: Positive for ear pain and sore throat; no headache(s), abnormal hearing, tinnitus, nasal congestion, nasal discharge or neck pain Resp Respiratory: No snoring, cough, shortness of breath or wheezing Cardio Cardiology: No excessive sweating, chest pain at rest, chest pain with exertion, shortness of breath, dyspnea on exertion, orthopnea, palpitations or lightheadedness Gastro GI: No abdominal pain, change in bowel habits, diarrhea, constipation, vomiting, nausea/dyspepsia or cramping Musc Musculoskeletal: No neck pain, abnormal walking, joint pain, back pain, limited range of motion or numbness Skin Skin: No redness, dry skin, itching, lesions, wounds or rash Neuro Neurology: No frequent falls, headache(s), weakness, abnormal hearing, abnormal walking, numbness, abnormal speech, dizziness or memory loss Psych Psychiatric: No change in appetite, No memory loss, No anxiety, No depression, No Thoughts of harming yourself/Others Endo Endocrine: No fatigue, excessive sweating, cold intolerance, increased thirst/drinking, heat intolerance, increased hunger or flushing Aller/Imm Allergy/Immunologic: No wheezing, itchy eyes, seasonal allergy symptoms or hives Rell/Lymp Hematologic/Lymphatic: No easy bleeding, easy bruising or enlarged lymph nodes Exam Const General: cooperative, no acute distress Orientation: alert, awake, oriented x3 HENMT Head: normocephalic, atraumatic Ears: hearing grossly normal bilaterally, TM's normal bilaterally Teeth and gingiva: abnormal tooth or associated gingiva Other: No visible abnormality of the posterior oropharynx. Neck Neck: normal visual inspection, full ROM, no lymphadenopathy Neck mass: No Thyroid: thyroid normal Resp Effort AND Inspection: normal respiratory effort, able to speak in complete sentences Auscultation: Bilateral: Clear to Auscultation Cardio Rate: regular rate Rhythm: regular rhythm Heart Sounds: S1 normal, S2 normal GI Palpation: soft, no hepatosplenomegaly Neuro General: alert, awake, oriented x3, moves all extremities, CN's II-XI intact bilaterally Extrem General: no pedal edema Psych Appearance: grossly normal Mood: congruent mood Affect: normal affect Assessment AND Plan 1. Painful swallowing R13.10 Plan Said to have been ongoing for over a month. Has been managed for bacterial pharyngitis without any improvement in his symptoms. Reports losing about 10 pounds in the last month due to poor eating. Chronic tobacco abuse. No significant abnormality noted on examination however not properly able to visualize posterior oropharynx. Referred to ENT Orders Referrals: 2. Hypertension I10 Plan Reports a history of occasionally elevated blood pressure. Not currently on any medication. Lifestyle/dietary modifications discussed. Follow-up at next visit. This note was generated with Nano[employer] dictation software. It may contain incorrect words, spelling, and punctuation that were not noted in checking the note before signing. Coding Level of Care Code Off vis,new,level 3 Diagnoses Painful swallowing R13.10 Hypertension I10 04/26/18 5433 <Electronically signed by Blayne Hernandez MD> Date Blayne Mary Gibbons Signature: Date (if applicable) CC: Observed: 04/13/2018 Status: F Source: STOUT CULTURE, R/O STREP A 5:26 PM [facility] REPOSITORY [facility] Culture No Group A Beta Streptococcus isolated. * This cultures intended use is to screen for Beta Streptococcus A only. All other pathogens and potential pathogens will not be screened for or reported. If a complete workup of all potential pathogens is indicated an order for a routine throat culture is required. Performed By: #### M100.010 #### [facility] [address] [place], [place], [address] URGENT CARE VISIT Observed: 04/13/2018 Status: F Source: STOUT REPORT 12:43 PM [facility] REPOSITORY [facility] [address] [place] [address] [address] [place] [address] OFFICE VISIT Date of Service: 04/13/18 MR#: [id number] Acct: [id number] Name: ANDREW STANFORD April Rep #: [id number] : 1960 Provider: Angel JONES Age/Sex: 57/M Location: [facility] Status: Signed Intake Vital Signs04/13/18 Height 5 ft 9 in Intake Visit Reasons: SORE THROAT? Allergies bee venom protein (honey bee) Allergy (Verified 04/13/18 10:59) Anaphylaxis Medications clindamycin HCl 300 mg capsule PO 7 Days #28 04/13/18 [History Confirmed 04/13/18] doxycycline hyclate 100 mg capsule 100 mg PO BID 10 Days #20 cap 04/13/18 [Rx Confirmed 04/13/18] omega-3 fatty acids 1,000 mg capsule 1,000 mg PO DAILY 04/13/18 [History Confirmed 04/13/18] PFSH Medical History Asthma (Acute) Migraines (Acute) HTN (hypertension) (Chronic) Social History Smoking Status: Current every day smoker alcohol intake: current details: 2x/week HPI HPI Details: ANDREW STANFORD, is a 57 M who presents to the office today for complaint of sore throat and dental pain. Patient has been seen at [facility] ED for the same complaint and was started on penicillin 4 times daily for 10 days however then was changed to clindamycin by his dentist at the [facility]. Patient reports that he has had multiple teeth pulled in the past and has multiple infected teeth at the moment. He does have an appointment scheduled with his dentist to have his remaining teeth pulled on the of next month. He states that despite the use of the clindamycin and penicillin he continues to have right-sided throat pain however denies any fever, chills, sweats. He has had no nausea, vomiting, diarrhea. No other associated symptoms or alleviating/aggravating factors. ROS Const Constitutional: No fever(s), headache(s), anorexia, chills or abnormal sleep pattern ENT ENT: Positive for sore throat, mouth pain and dental pain (Multiple carries); no headache(s), post nasal drip, ear pain, nasal congestion, nasal discharge, tongue swelling or throat swelling Resp Respiratory: No shortness of breath Cardio Cardiology: No irregular heart rhythm or palpitations Gastro GI: No nausea/dyspepsia Neuro Neurology: No headache(s) or behavioral changes Psych Psychiatric: No abnormal sleep pattern, No behavioral changes Aller/Imm Allergy/Immunologic: No tongue swelling or throat swelling Exam Const General: cooperative, healthy appearing [facility] Head: normal to inspection Ears: hearing grossly normal bilaterally, TM's normal bilaterally, EAC's normal Nose: external nose normal, nasal discharge clear Mouth: oral mucosae normal Teeth and gingiva: abnormal tooth or associated gingiva, caries (All of the remaining teeth and dental caries), poor dentition, multiple restorations Throat: abnormal tonsil bilaterally, posterior oropharynx abnormal exudates Other: Patient has multiple extensive dental caries however shows no signs of abscess. There is no drainage, erythema. Resp Effort AND Inspection: normal respiratory effort Auscultation: Bilateral: Clear to Auscultation Cardio Palpation: normal PMI Rate: regular rate Rhythm: regular rhythm Neuro General: CN's II-XI intact bilaterally, alert Psych Appearance: grossly normal Mental Status: mental status grossly normal Assessment AND Plan Problems 1. Infected dental caries K02.9; K04.7 Status Acute 2. Acute pharyngitis, unspecified etiology J02.9 Status Acute Plan Patient started on doxycycline and advised to follow-up with his dentist to fix his dental caries. Patient also given BMX solution for pain relief. Advised to follow-up with his PCP in 5-7 days or sooner should the symptoms worsen. Advised of potential red flags and when appropriate report to the ED. Patient verbalized understanding of all the above. Orders Orders: Medications New: Discontinued: penicillin V potassium Discontinued Reason: Pt no l500 mg PO 4X/DAY Melissa Vikki Snell onger taking Coding Level of Care Code Off vis,new,level 3 Diagnoses Infected dental caries K02.9; K04.7 Acute pharyngitis, unspecified etiology J02.9 Pharyngitis/tonsillitis etiology: unspecified etiology 04/13/18 1243 <Electronically signed by Angel JONES> Date Angel JONES Cosigner Signature: Date (if applicable) CC: EMERGENCY DEPARTMENT Observed: 04/10/2018 Status: F Source: STOUT SUMMARY 8:02 AM [facility] Medical Records Department [address] [place] [address] Emergency Department Summary 04/10/18 0757 MR#: [id number] Acct: [id number] Name: ANDREW STANFORD Rep #: [id number] : 1960 57 From: Michael Johnson MD PCP: Christina Humphrey MD Status: REG ER - ER Visit Summary Date of Service: 04/10/18 Chief Complaint: Right-sided head pain, tingling, throat pain History of Present Illness: The patient is a 57 M who was seen on April 05 and diagnosed with dental infection. He was prescribed penicillin. He is not contacted his doctor or dentist. He believes his head pain and throat pain are secondary to failed therapy. He denies fever, chills night sweats. He localizes his head pain to the right parietal area and has associated tingling. He also complains of tingling of his right ear. He denies decreased hearing or ringing in his ears. He states he is having trouble swallowing however he denies drooling and has no change in voice. He denies inability to open or close his mouth completely. He denies photophobia, stiffness of his neck or neck pain. He denies having a rash. He denies having myalgias arthralgias or joint swelling. Physical Examination: Vital signs noted and blood pressure elevated 146/101. Head is atraumatic normocephalic. Pupils are equal round reactive. Extraocular muscles are intact. TMs are pearly white with landmarks noted. Nares patent with no drainage. Posterior pharynx without erythema or exudate. Uvula is midline. There is no dysphonia or dysphasia. Trachea is midline. There is no stridor with auscultation of the neck. There is no TMJ tenderness. There is no trismus. Posterior pharynx remarkable for postnasal drainage. He has significant dental pathology. There is no swelling of the jaw or face. There is no erythema. Heart is regular without murmur, gallop or rub. S1 and S2 are normal. Lungs are clear to auscultation with good movement of air bilaterally. Patient is alert and oriented 3. Motor is 5 over 5. Sensory is intact. DTRs are symmetric with no clonus or Babinski sign. Cranial 2 through 12 are intact. Cerebellar testing is normal. There are no skin lesions or rash noted. Test Results: None Emergency Department Course and Treatment: Patient was told he needs to follow-up with a dentist regarding his dental symptoms. He was told he has a viral infection and this would need to run its course. Treatment Plan: Symptomatic Disposition: Discharged to home Impression: 1. Acute viral upper respiratory infection 2. Cephalgia 3. Odontalgia 4. Dental caries This note was generated with Turned On Digitalation software. It may contain incorrect words, spelling, and punctuation that were not noted in review of the chart prior to signing ED Disposition - Plan for ED Patient: Disposition: Home or Assisted Living Chief Complaint: Dental Instructions: ED Tooth Pain, ED URI Viral Referrals: Christina Humphrey MD [Primary Care Provider] - 10-14 Days if not better Additional Instructions: Recommend contacting [facility] clinic or going to the clinic for your dental symptoms. What to do if you have Problems For any increased pain, shortness of breath, bleeding, nausea or vomiting, chest pain, or any unexpected problems, contact your Primary Care Provider. Call [facility] ([phone]) or report to the closest Emergency Room. Call 911 if necessary. 04/10/18 0802 <Electronically signed by Michael Johnson MD> Date Michael Johnson MD Cosigner Signature (If Indicated): Date CC: Christina Humphrey MD; Mahnaz Rebollar EMERGENCY DEPARTMENT Observed: 04/05/2018 Status: F Source: STOUT SUMMARY 10:23 AM [facility] REPOSITORY [facility] Medical Records Department [address] [place] [address] Emergency Department Summary 04/05/18 1018 MR#: [id number] Acct: [id number] Name: ANDREW STANFORD Rep #: [id number] : 1960 57 From: Crow Damon DO PCP: Christina Humphrey MD Status: REG ER - ER Visit Summary Date of Service: 04/05/18 Chief Complaint: Dental pain History of Present Illness: The patient is a 57 M who presents with right lower dental pain and swelling that has been getting worse over the past 3 weeks. Patient states she is swallowing purulent material. Patient states the pain radiates to his neck and right ear. Patient denies any fevers. Patient states he has been taking Tylenol and ibuprofen with minimal improvement of his pain. Patient does not have a dentist. Patient is concerned over possible infection. Physical Examination: Vital signs are stable. Patient is afebrile. Patient is in no acute distress. Oral mucosa is pink and moist. There is gingival edema over the right lower first molar area. There is no fluctuance. There is no discharge or drainage. Oropharynx is clear. Tympanic membranes are clear. Neck is supple. Trachea is midline. There is some mild anterior cervical lymphadenopathy noted. The remaining physical exam is within normal limits. Emergency Department Course and Treatment: Patient was given a prescription for Pen-Vee K. Patient was instructed to follow-up with a dentist and 5-7 days. Patient understood and was agreeable with the plan. All questions were answered. Disposition: Discharge home Impression: Infected dental caries This note was generated with Turned [employer] software. It may contain incorrect words, spelling, and punctuation that were not noted in review of the chart prior to signing ED Disposition - Plan for ED Patient: Disposition: Home or Assisted Living Chief Complaint: Dental Diagnosis: Infected dental caries Instructions: ED Abscess Dental Prescriptions: Penicillin V Potassium 500 mg PO 4X/DAY #40 tab Referrals: Christina Humphrey MD [Primary Care Provider] - What to do if you have Problems For any increased pain, shortness of breath, bleeding, nausea or vomiting, chest pain, or any unexpected problems, contact your Primary Care Provider. Call [facility] ([phone]) or report to the closest Emergency Room. Call 911 if necessary. 04/05/18 1023 <Electronically signed by Crow Damon DO> Date Crow Damon DO Cosigner Signature (If Indicated): Date CC: Christina Humphrey MD ALLERGIES ALLERGIES DATE TYPE / CODE NAME / CODE REACTION SEVERITY SOURCE 07/05/2018 Drug bee venom Angioedema Unknown [place] [facility] 085523(SNOM bee)/[id number] Repository ED CT) 5(RXNORM) 04/05/2018 Drug bee Unknown Unknown [facility] Allergy/416 pollen/[id number] Hospital 037987(SNOM 890(RXNORM) Repository ED CT) ENCOUNTERS ENCOUNTERS ADMIT/DISCHARGE ACCOUNT ADMITTING ENCOUNTER LOCATION SOURCE NUMBER CLASS 07/10/2018 [id number] Ambulatory BMSBuilding:B [place] 2 [place] Repository 07/05/2018 [id number] Ambulatory BMSBuilding:B [place] 5 [facility] Repository 07/05/2018 [id number] Ambulatory [place] 6 [facility] ing[facility]ONC Repository 07/03/2018 [id number] Ambulatory [place] 8 [facility] ing[facility]NS Repository 06/22/2018/ [id number] Ambulatory [place] 8 9 [facility] ing[facility]NS Repository 06/22/2018 [id number] Ambulatory BMSBuilding:B [place] 0 [place] Repository 06/22/2018 [id number] Ambulatory [place] 2 [facility] Hospital ing:OROURKE Repository 06/22/2018 [id number] Ambulatory BMSBuilding:W [place] 4 [facility] Repository 06/20/2018/ [id number] Ambulatory [place] 8 0 [facility] Hospital ing:ENRoom: Repository AC06 06/18/2018/ [id number] Ambulatory BMSBuilding:B [facility] [facility] 06/12/2018 [id number] Ambulatory BMSBuilding:B [place] 1 [place] Repository 06/07/2018 [id number] Ambulatory BMSBuilding:B [place] 6 [place] Repository 05/29/2018/ [id number] [place] Ambulatory [place] 8 8 [facility] ing:BD3Hznj: Repository NU181Vik: 1 05/23/2018/ [id number] Ambulatory [place] 8 1 [facility] ing:SDCRoom: Repository AC20 05/18/2018 [id number] Ambulatory [place] 0 [facility] ing:CVS Repository 05/17/2018 [id number] Ambulatory [place] 2 [facility] Hospital ing:CT Repository 04/25/2018/ [id number] Ambulatory BMSBuilding:B [place] 8 9 MS.[facility] Repository 04/13/2018 [id number] Ambulatory [place] 5 [facility] ing:LABSPEC Repository 04/13/2018/ [id number] Ambulatory BMSBuilding:B [place] 8 3 MS.NOW [facility] Hospital Repository 04/10/2018/ [id number] Emergency [place] 8 7 [facility] ing:ED Repository 04/05/2018/ [id number] Emergency [place] 8 1 [facility] ing:ED Repository PAYERS PAYERS ENCOUNTER GUARANTOR PAYER SUBSCRIBER SOURCE 07/10/2018 ANDREW E Primary ANDREW [id number] SPINK Insurance:MOLINAPolic HARTMANDOB: Community [address] [place] [address], y Number: [id number] [facility] [address]Ome: [id number] Repository Date:8325-50-42YP [address] () [address] [place] [address] 36325KU: 07/10/2018 Secondary NOT GIVENUNK [place] Insurance:SELF PAY [facility] Number: Effective Repository Date:2018-07-10 07/05/2018 ANDREW E Primary ANDREW E [place] [id number] SPINK Insurance:MOLINAPolic HARTMANDOB: Community [address] [place], y Number: [id number] Indian Medical Center [address]Rhx: [id number] Repository Date:2919-56-71QK BOX ) [address] [place] [address] 56169FJ: 07/05/2018 Secondary NOT GIVENUNK [place] Insurance:SELF PAY [facility] Number: Effective Repository Date:2018-07-05 07/05/2018 ANDREW E Primary ANDREW E [place] [id number] SPINK Insurance:MOLINAPolic HARTMANDOB: Community [address], y Number: [id number] Indian Medical Center [address]Yce: [id number] Repository Date:7853-75-54QN BOX () [address] [place] [address] 96015LP: 07/05/2018 Secondary NOT GIVENUNK [place] Insurance:SELF PAY [facility] Number: Effective Repository Date:2018-06-05 07/03/2018 ANDREW E Primary NOT GIVENUNK [place] [id number] SPINK Insurance:SELF PAY Community [address] [place], [place] [id number]: Number: Effective Repository Date:2018-06-23 () 06/22/2018 ANDREW E Primary NOT GIVENUNK [place] [id number] SPINK Insurance:SELF PAY Community [address] [place], [place] [address]Tel: Number: Effective Repository Date:2018-06-22 () 06/22/2018 ANDREW E Primary ANDREW E [place] [id number] SPINK Insurance:MOLINAPolic HARTMANDOB: Community [address], y Number: [id number] Indian Medical Center [address]Csh: [id number] Repository Date:6911-13-05PV [address] () [address] [place] [address] 61246ZG: 06/22/2018 Secondary NOT GIVENUNK [place] Insurance:SELF PAY [facility] Number: Effective Repository Date:2018-06-22 06/22/2018 ANDREW E Primary ANDREW E [place] [id number] SPINK Insurance:MOLINAPolic HARTMANDOB: Community [address], y Number: [id number] Indian Medical Center [address]Byq: [id number] Repository Date:9412-73-97WJ B[address] () [address] [place] [address] 99463OD: 06/22/2018 Secondary NOT GIVENUNK [place] Insurance:SELF PAY [facility] Number: Effective Repository Date:2018-06-05 06/22/2018 ANDREW E Primary ANDREW E [place] [id number] SPINK Insurance:MOLINAPolic HARTMANDOB: Community [address], y Number: [id number] Indian Medical Center [address]Rps: [id number] Repository Date:1417-84-94GC [address] ([address] [address]GE: 06/22/2018 Secondary NOT GIVENUNK [place] Insurance:SELF PAY [facility] [address] Number: Effective Repository Date:2018-06-22 06/20/2018 ANDREW E Primary ANDREW E [place] [id number] SPINK Insurance:MOLINAPolic HARTMANDOB: Community [address], y Number: [id number] Indian Medical Center [address]Hvj: [id number] Repository Date:3303-18-89YF [address] ([address] [address]UQ: 06/20/2018 Secondary NOT GIVENUNK [place] Insurance:SELF PAY [facility] Number: Effective Repository Date:2018-06-18 06/18/2018 ANDREW E Primary ANDREW E [place] [id number] SPINK Insurance:MOLINAPolic HARTMANDOB: Community [address], y Number: [id number] Indian Medical Center [address]Nvn: [id number] Repository Date:5404-21-18TG [address] () [address] [place] [address] 60511WM: 06/18/2018 Secondary NOT GIVENUNK [place] Insurance:SELF PAY [facility] Number: Effective Repository Date:2018-06-12 06/12/2018 ANDREW E Primary ANDREW E [place] [id number] SPINK Insurance:MOLINAPolic HARTMANDOB: Community [address], y Number: [id number] Indian Medical Center [address]Uao: [id number] Repository Date:9702-60-69TX B[address] () [address] [place] [address] 39818FJ: 06/12/2018 Secondary NOT GIVENUNK [place] Insurance:SELF PAY [facility] [address] Number: Effective Repository Date:2018-06-12 06/07/2018 ANDREW E Primary ANDREW E [place] [id number] SPINK Insurance:MOLINAPolic HARTMANDOB: Community [address], y Number: [id number] Indian Medical Center [address]Ymm: [id number] Repository Date:0469-31-19DP [address] () [address] [place] [address] 75794OQ: 06/07/2018 Secondary NOT GIVENUNK [place] Insurance:SELF PAY [facility] [address] Number: Effective Repository Date:2018-06-07 05/29/2018 ANDREW E Primary ANDREW E [place] [id number] SPINK Insurance:MOLINAPolic HARTMANDOB: Community [address], y Number: [id number] Indian Medical Center [address]Hfc: [id number] Repository Date:7591-75-11WI B[address] () [address] [place] [address] 48201EO: 05/29/2018 Secondary NOT GIVENUNK [place] Insurance:SELF PAY [facility] Number: Effective Repository Date:2018-05-29 05/23/2018 ANDREW E Primary ANDREW E [place] [id number] SPINK Insurance:MOLINAPolic HARTMANDOB: Community [address], y Number: [id number] Indian Medical Center [address]Kef: [id number] Repository Date:3557-77-36LA [address] () [address] [place] [address] 01012RW: 05/23/2018 Secondary NOT GIVENUNK [place] Insurance:SELF PAY [facility] Number: Effective Repository Date:2018-05-21 05/18/2018 ANDREW E Primary ANDREW E [place] [id number] SPINK Insurance:MOLINAPolic HARTMANDOB: Community [address], y Number: [id number] Indian Medical Center [address]Xjj: [id number] Repository Date:1650-73-27QU B[address] () [address] [place] [address] 87515FI: 05/18/2018 Secondary NOT GIVENUNK [place] Insurance:SELF PAY [facility] Number: Effective Repository Date:2018-05-18 05/17/2018 ANDREW E Primary ANDREW E [place] [id number] SPINK Insurance:MOLINAPolic HARTMANDOB: Community [address], y Number: [id number] Indian Medical Center 24141Fvb: [id number] Repository Date:6627-83-70WP [address] () [address] [place] [address] 23523TG: 05/17/2018 Secondary NOT GIVENUNK [place] Insurance:SELF PAY [facility] Number: Effective Repository Date:2018-04-30 04/25/2018 ANDREW E Primary ANDREW E [place] [id number] SPINK Insurance:MOLINAPolic HARTMANDOB: Community [address], y Number: [id number] Indian Medical Center 320[address]Gxd: [id number] Repository Date:6123-09-33BG [address] () [address] [place] [address] 73115RQ: 04/25/2018 Secondary NOT GIVENUNK [place] Insurance:SELF PAY [facility] Number: Effective Repository Date:2018-04-11 04/13/2018 ANDREW E Primary ANDREW E [place] [id number] SPINK Insurance:MOLINAPolic HARTMANDOB: Community [address], y Number: [id number] Indian Medical Center [address]1108Kqu: [id number] Repository Date:3388-07-06WD [address] () [address] [place] [address] 68907XB: 04/13/2018 Secondary NOT GIVENUNK Amri[place] Insurance:SELF PAY [facility] Number: Effective Repository Date:2018-04-13 04/13/2018 ANDREW E Primary ANDREW [id number] SPINK Insurance:MOLINAPolic HARTMANDOB: Community [address], y Number: [id number] Indian Medical Center [address]Rhq: [id number] Repository Date:9884-77-35XI [address] () [address] [place] [address] 41197TB: 04/13/2018 Secondary NOT GIVENUNK [place] Insurance:SELF PAY [facility] Number: Effective Repository Date:2018-04-13 04/10/2018 ANDREW E Primary ANDREW E [place] [id number] SPINK Insurance:MOLINAPolic HARTMANDOB: Community [address], y Number: [id number] Indian Medical Center [address]Vyl: [id number] Repository Date:8746-22-12BQ B[address] () [address] [place] [address] 26803IM: 04/10/2018 Secondary NOT GIVENUNK [place] Insurance:SELF PAY [facility] Number: Effective Repository Date:2018-04-10 04/05/2018 ANDREW E Primary ANDREW Lemus [id number] SPINK Insurance:MOLINAPolic HARTMANDOB: Community [address], y Number: [id number] Indian Medical Center 76806Ylw: [id number] Repository Date:9751-55-29VF [address] () [id number] [place] [address] 88089HF: 04/05/2018 Secondary NOT GIVENUNK [place] Insurance:SELF PAY [facility] Number: Effective Repository Date:2018-04-05
== END 2018-06-20 11:45 | disposition home or self-care (01) ==
LOC: EN 05:40 → AC 05:41
PROVIDERS: Family Provider Internal Medicine; PCP Internal Medicine; Referring Provider Surgery; Visit Provider Surgery
PROC: (CPT 36571; principal; 2018-06-20 07:15)
PROC: 0DH64UZ Insertion of Feeding Device into Stomach, Percutaneous Endoscopic Approach (ICD-10-PCS; CPT 43246; principal; 2018-06-20 07:55)
DX: C09.9 Malignant neoplasm of tonsil, unspecified (principal); K29.70 Gastritis, unspecified, without bleeding; K44.9 Diaphragmatic hernia without obstruction or gangrene; K21.0 Gastro-esophageal reflux disease with esophagitis; M19.90 Unspecified osteoarthritis, unspecified site; F17.200 Nicotine dependence, unspecified, uncomplicated; Z79.891 Long term (current) use of opiate analgesic
CPT/HCPCS: 00532; 36571; 43239; 43246; 71045; 77001; 88302; 88305; 88342; 97802; J7120; J2405

== ENCOUNTER 2018-06-22 11:27 | Outpatient (RCR) | payer SELFPAY ==
[2018-06-12 10:03] VITALS: BMI 20.7
--- OUTSIDE RECORDS SUMMARY | 2018-08-17 10:16 | XMS RPT_ITS ---
:1960 Author Organization OHIP Support Name Relationship Address Phone MALENA CHAPASY Unavailable [address] + [address] [place] [address] D Unavailable Unavailable Unavailable SWADEEN, TIA Unavailable Unavailable + SAMMI, MARII Unavailable [address] + [address] [place] [address] D Unavailable Unavailable Unavailable SWADEEN, TIA Unavailable Unavailable + SAMMI, MARII Unavailable [address] + [address] [place] [address] D Unavailable Unavailable Unavailable SWADEEN, TIA Unavailable Unavailable + SAMMI, MARII Unavailable [address] + [address] [place] [address] D Unavailable Unavailable Unavailable SWADEEN, TIA Unavailable Unavailable + SAMMI, MARII Unavailable [address] [place] [address] D Unavailable Unavailable Unavailable SWADEEN, TIA Unavailable Unavailable + SAMMI, MARII Unavailable [address] [place] [address] D Unavailable Unavailable Unavailable SWADEEN, TIA Unavailable Unavailable + SAMMI, MAR[place] Unavailable [address] + [address] [place] [address] D Unavailable Unavailable Unavailable SWADEEN, TIA Unavailable Unavailable + SAMMI, MARII Unavailable [address] [place] [address] D Unavailable Unavailable Unavailable SWADEEN, TIA Unavailable Unavailable + SAMMI, MARII Unavailable [address] [place] [address] D Unavailable Unavailable Unavailable SWADEEN, TIA Unavailable Unavailable + SAMMI, MARII Unavailable [address] [place] [address] D Unavailable Unavailable Unavailable SWADEEN, TIA Unavailable . + [place] [address] BRYER VALENTIN Unavailable [address] [place] [address] D Unavailable Unavailable Unavailable SWADEEN, TIA Unavailable Unavailable + BRYER VALENTIN Unavailable [address] + [address] [place] [address] D Unavailable Unavailable Unavailable SWADEEN, TIA Unavailable Unavailable + KULDIPERROSALINAVALENTIN Unavailable [address] [place] [address] D Unavailable Unavailable Unavailable SWADEEN, TIA Unavailable Unavailable + [place] [address] BRYER VALENTIN Unavailable [address] [place] [address] D Unavailable Unavailable Unavailable SWADEEN, TIA Unavailable Unavailable + [place] [address] D Unavailable Unavailable Unavailable FRANKY, JUDY Unavailable [address] + [place] [address] D Unavailable Unavailable Unavailable FRANKY, JUDY Unavailable [address] + [place] [address] D Unavailable Unavailable Unavailable FRANKY, JUDY Unavailable [address] + [place] [address] D Unavailable Unavailable Unavailable FRANKY, JUDY Unavailable [address] + [place] [address] D Unavailable Unavailable Unavailable FRANKY, JUDY Unavailable [address] + [place] [address] D Unavailable Unavailable Unavailable FRANKY, JUDY Unavailable [address] + [place] [address] D Unavailable Unavailable Unavailable FRANKY, JUDY Unavailable [address] + [place] [address] Care Team Providers Name Role Phone Lorrainedavid Roman Attending Unavailable Oleghe, Efewongbe Primary Care Unavailable Ortiz Nguyen Consulting Unavailable Oleghe, Efewongbe Referring Unavailable Ortiz Nguyen Attending Unavailable Oleghe, Efewongbe Primary Care Unavailable Ortiz Nguyen Attending Unavailable Oleghe, Efewongbe Primary Care Unavailable Ortiz Nguyen Consulting Unavailable Sarthak Alicea Referring Unavailable Ortiz Nguyen Attending Unavailable Oleghe, Efewongbe Primary Care Unavailable Newsome, Crow Attending Unavailable Newsome, Crow Referring Unavailable Oleghe, Efewongbe Primary Care Unavailable Newsome, Crow Attending Unavailable Newsome, Crow Referring Unavailable Oleghe, Efewongbe Primary Care Unavailable Newsome Crow Attending Unavailable Newsome, Crow Referring Unavailable Oleghe, Efewongbe Primary Care Unavailable Angel Belcher Attending Unavailable Angel Belcher Referring Unavailable Oleghe, Efewongbe Primary Care Unavailable Angel Belcher Attending Unavailable Oleghe, Efewongbe Referring Unavailable Jolliff, Christina Primary Care Unavailable Jolliff, Christina Primary Care Unavailable Johnson Michael Attending Unavailable Jolliff, Christina Primary Care Unavailable Crow Damon Attending Unavailable Ortiz Nguyen Attending Unavailable Ortiz Nguyen Attending Unavailable Oleghe, Efewongbe Primary Care Unavailable Ortiz Nguyen Consulting Unavailable Sarthak Alicea Attending Unavailable Sarthak Alicea Referring Unavailable Oleghe, Efewongbe Primary Care Unavailable Ortiz Nguyen Attending Unavailable Oleghe, Efewongbe Primary Care Unavailable Ortiz Nguyen Attending Unavailable Oleghe, Efewongbe Primary Care Unavailable Seb Powell Unavailable Ortiz Nguyen Consulting Unavailable Oleghe, Efewongbe Primary Care Unavailable Newsome, Crow Admitting Unavailable Newsome, Crow Attending Unavailable Oleghe, Efewongbe Attending Unavailable Oleghe, Efewongbe Referring Unavailable Ortiz Nguyen Attending Unavailable Ortiz Nguyen Referring Unavailable Sarthak Alicea Attending Unavailable Oleghe, Efewongbe Referring Unavailable Ortiz Nguyen Attending Unavailable Oleghe, Efewongbe Primary Care Unavailable Seb Powell Unavailable Ortiz Nguyen Referring Unavailable PROBLEMS PROBLEMS DATE TYPE CONDITION / CODE ATTENDING STATUS SOURCE 07/09/2018 Unknown 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, Hospital unspecified / Repository C09.9(ICD-10) 04/25/2018 Unknown R13.10 - Oleghe, Active [place] Dysphagia, Efewongbe Community unspecified / Hospital R13.10(ICD-10) Repository 04/13/2018 Unknown J02.9 - Acute Ye, Angel Active [place] pharyngitis, Community unspecified / Hospital J02.9(ICD-10) Repository 04/13/2018 Unknown J01.90 - Acute Ye, Angel Active [place] sinusitis, Community unspecified / Hospital J01.90(ICD-10) Repository PROCEDURES PROCEDURES No Procedure Records FoundRESULTS RESULTS ONCOLOGY VISIT REPORT Observed: 07/10/2018 Status: F Source: [place] 3:56 PM [facility] REPOSITORY [facility] Medical Oncology [address] [place] [address] [place] [address] OFFICE VISIT Date of Service: 07/05/18 1433 MR#: [id number] Acct: [id number] Name: ANDREW STANFORD Rep #: [id number] : 1960 From: Reta IRAHEAT Age/Sex: 58/M Location: ONC Status: Signed Subjective [...] with cycle 1 on 07/09/2018. BLAZE Solitario, DAIRY FARMER, AOCNP Primary Care Provider: Blayne Hernandez MD Referring Provider: 07/10/18 1556 <Electronically signed by Reta IRAHETA> Date Reta IRAHETA Cosigner Signature: Date (if applicable) CC: ONCOLOGY FOLLOW-UP Observed: 07/05/2018 Status: F Source: [place] VISIT 4:36 PM [facility] REPOSITORY [facility] Medical Records Department [address] [place] [address] Oncology Follow-Up Visit 07/05/18 1600 MR#: [id number] Acct: [id number] Name: ANDREW STANFORD Rep #: [id number] : 1960 58 From: Ortiz Nguyen DO PCP: Blayne Hernandez MD Status: REG RCR Y Location: [facility] Date of Service: 06/27/18 Last Clinic Visit: [...] in initiating treatment. Ortiz Nguyen DO, MS Wide Piece Goods Inspector, Department of Radiation Oncology [facility] 07/05/18 1636 <Electronically signed by Ortiz Nguyen DO> Date Ortiz Nguyen DO CC: Crow Newsome MD; Roman Vu MD Signed PET/CT TUMOR BASE Observed: 07/02/2018 Status: F Source: [place] -[place]IGH INIT 11:17 AM [facility] REPOSITORY [facility] Imaging Services [address] [place] [address] PET/CT Tumor Base -Thigh Init MR#: [id number] Acct: [id number] Name: ANDREW STANFORD Rep #: [id number] : 1960 M 58 From: Jairon Reardon DO PCP: Blyane Hernandez MD Status: REG RCR Study: PET/CT Tumor Base -Thigh Init Date of Exam: 07/02/18 Exam# [id number] Ordering Dr: Ortiz Nguyen DO EXAMINATION: FDG [...] demonstrating discernible, quantitatively significant increased glucose metabolism. Wqzd-B-Wgju-MediPort placement is noted. Coronary arterial calcification is [...] CC: Blayne Hernandez MD; Ortiz Nguyen DO Ham Boner: Signed ONCOLOGY FOLLOW-UP Observed: 06/22/2018 Status: F Source: [place] VISIT 9:39 AM [facility] Medical Records Department [address] [place] [address] Oncology Follow-Up Visit 06/22/18 0842 MR#: [id number] Acct: [id number] Name: ANDREW STANFORD Rep #: [id number] : 1960 58 From: Ortiz Nguyen DO PCP: Blayne Hernandez MD Status: REG RCR Y Location: [facility] Date of Service: 06/22/18 Last Clinic Visit: [...] the clinical situation. PROCEDURE PERFORMED: Left Flexible Lwgs-Dzkeupxt-Bzhwavkoembq. CONSENT: Verbal informed consent was obtained prior [...] further questions or concerns in the interim. Ortzi Nguyen DO, Wide Piece Goods Inspector, Department of Radiation Oncology [facility] 06/22/18 0948 <Electronically signed by Ortiz Nguyen DO> Date Ortiz Nguyen DO CC: Crow Newsome MD; Roman Vu MD; Sarthak Alicea MD Signed DISCHARGE INSTRUCTION Observed: 06/21/2018 Status: F Source: [place] 2:33 PM [facility] REPOSITORY [facility] Medical Records Department [address] [place] [address] Instructions for Home/Discharge Instructions 06/20/18 0831 MR#: [id number] Acct: [id number] Name: ANDREW STANFORD Rep #: [id number] : 1960 58 From: Sarthak [place]a MD PCP: Blayne Hernandez MD Status: DEP [facility] Discharge Diet: Light diet - advance as [...] to take at Discharge Hydrocodone Bitart/Apap 5-325 [[place] 5MG-325MG] 1 - 2 tablet PO Q4H PRN PRN 06/19/18 Ibuprofen 400 mg PO PRN PRN 06/19/18 Primary Care Physician: Blayne Hernandez MD [Primary Care Provider] - Test Results: Test results from this visit will be discussed in further detail at your follow-up appointment, if applicable. Please Follow Up With: Sarthak [place] MD - [phone] When: Call to make an appointment to be seen in about 10 days. 06/21/18 1433 <Electronically signed by Sarthak [place]a MD> Date Sarthak Alicea MD CC: Blayne Hernandez MD OPERATIVE REPORT Observed: 06/21/2018 Status: F Source: [place] 2:33 PM [facility] REPOSITORY [facility] Medical Records Department [address] [place] [address] Operative Report 06/20/18 0839 MR#: [id number] Acct: [id number] Name: ANDREW STANFORD Rep #: [id number] : 1960 58 From: Sarthak Alicea MD [...] REPORT - Observed: 06/20/2018 Status: F Source: [place] ENDOSCOPY 9:04 AM [facility] REPOSITORY [facility] Medical Records Department [address] [place] [address] Operative Report - Endoscopy MR#: [id number] Acct: [id number] Name: ANDREW STANFORD Rep #: [id number] : 1960 58 From: Sarthak [place]a MD PCP: Blayne Hernandez MD Status: [facility] Patient Name: Andrew Stanford Procedure Date: 06/20/2018 [...] 8:56 AM 06/20/1804 Date [facility] Signature: Date (if indicated) CC: Blayne Hernandez MD; Sarthak Alicea MD Date Dictated: 06/20/18 0856 Date Transcribed: Ham Boner: ASHANTI Signed CXR FOR LINE PLACEMENT Observed: 06/20/2018 Status: F Source: [place] 8:55 AM [facility] REPOSITORY [facility] Imaging Services [address] [place] [address] CXR for Line Placement MR#: [id number] Acct: [id number] Name: ANDREW STANFORD Rep #: [id number] : 1960 M 58 From: Dominik Chaidez MD PCP: Blayne Hernandez MD Status: REG [facility] Study: CXR for Line Placement Date of Exam: 06/20/18 Exam# [id number] Ordering Dr: Sarthak Alicea MD STUDY: X-RAY [...] Dominik Chaidez MD at 10:25 EST Tel [phone], Service support , CC: Blayne Hernandez MD; Sarthak Alicea MD Ham Boner: Signed EGD ([facility] [place] [facility]) Observed: 06/20/2018 Status: F Source: [place] 7:30 AM [facility] REPOSITORY Patient: ANDREW STANFORD : 1960 (58/M) Acct Num: [id number] Phys: Deanne DEJESUS,Sarthak Unit Num: [id number] Loc: EN Specimen: [id number] Received: 06/20/18 0855 Spec Type: EGD BIOPSY TISSUES 1 TISSUES: A. Gastric mucous membrane B. Esophageal mucous membrane COMMENT A. The results of immunohistochemistry for Helicobacter pylori will be reported separately ([id number]). B. Alcian blue/PAS stain with matched control [...] one cassette. / JABIER:brigida 06/20/18 TC:3 CPT: 83457 x2, 59719 HEADER OPERATION: Insertion, vascular Port/PEG tube placement [...] on file> Performed By: #### PEGD #### [facility] [address] [place] [address]. [place], [address] IMMUNOHISTOCHEMISTRY Observed: 06/20/2018 Status: F Source: [place] 12:00 AM [facility] REPOSITORY Patient: ANDREW STANFORD : 1960 (58/M) Acct Num: [id number] Phys: Deanne DEJESUS,Sarthak Unit Num: [id number] Loc: EN Specimen: [id number] Received: 06/21/18 - 1211 Spec Type: IMMUNO TISSUES 1 TISSUES: A. Stomach, NOS SPECIMEN INFORMATION: Tissue Source: A - Antral biopsy Clinical Info: Malignant neoplasm of tonsil Specimen Number: [id number] CPT code: 10423 METHODOLOGY: Deparaffinized sections of prefer/formalin-fixed tissue or [...] developed and their performance characteristics determined by [facility]. They may not have been cleared or approved by the U.S. Food and Drug Administration. The FDA has determined that such clearance or approval is not necessary. INTERPRETATION: A. Antral biopsy: Negative for Helicobacter pylori organisms. SJ:brigida 06/21/18 PHYSICIAN AND INSTITUTION [address] [address] Signed Torito Beaver 06/21/18 <signature on file> Performed By: #### PIMM #### [facility] [address] [place], [address] SURGERY VISIT REPORT Observed: 06/18/2018 Status: F Source: [place] 5:26 PM [facility] REPOSITORY [facility] [address] [place] [address] OFFICE VISIT Date of Service: 06/18/18 MR#: [id number] Acct: [id number] Name: ANDREW STANFORD Rep #: [id number] : 1960 Provider: Sarthak [place] MD Age/Sex: 58/M Location: [facility] Status: Signed Intake Vital Signs06/18/18 Body Mass Index (BMI) 19.8 06/18/18 Height 5 ft 9 in 06/18/18 Weight: 132 lb 1 oz 06/18/18 Body Mass Index (BMI) 19.5 06/18/18 Blood Pressure 100/65 Intake Visit Reasons: Port AND Peg Placement Consult Chief Complaint: PEG and port insertion Social Science Instructor Required: No Is patient in pain?: No [...] port and PEG placement by Dr. Vu Redding copy of my surgical consult recommendations will [...] ONCOLOGY CONSULTATION Observed: 06/12/2018 Status: F Source: [place] 3:38 PM [facility] REPOSITORY [facility] [address] [place] [address] Oncology Consultation Date of Service: 06/12/18 1500 MR#: [id number] Acct: [id number] Name: ANDREW STANFORD Rep #: [id number] : 1960 From: Roman Vu MD Age/Sex: [...] is scheduled for next week. Power of Drainlayer: No Living Will: No Health History: Past [...] History (Last Reviewed 06/12/18 @ 14:27 by Sartia Minor) Other Lymphoma Allergies/Adverse Reactions: Allergy/AdvReac Type [...] Chronic Code Visit Office Visits / Consults: 38158 OP Consult L5 06/12/18 1538 <Electronically signed by Roman Vu MD> Date Roman Vu MD Cosigner Signature: Date (if applicable) CC: Blayne Hernandez MD; Crow Newsome MD CONSULTATION Observed: 06/07/2018 Status: F Source: [place] 3:07 PM [facility] REPOSITORY [facility] Medical Records Department [address] [place] [address] Consultation 06/07/18 1427 MR#: [id number] Acct: [id number] Name: STANFORDANDREW E Rep #: [id number] : 1960 57 From: Ortiz Nguyen DO PCP: Blayne Hernandez MD Status: REG RCR Y Location: [facility] Date of Service: 06/07/18 Referring Provider: [...] be done quickly. Patient was referred to [facility] [employer] and nutrition services for evaluation and management [...] at any time. Ortiz Nguyen DO, MS Wide Piece Goods Inspector, Department of Radiation Oncology [facility] 06/07/18 1162 <Electronically signed by Ortiz Nguyen DO> Date Ortiz Nguyen DO Cosigner Signature (if applicable): Date CC: Blayne Hernandez MD; Crow Newsome MD; Roman uV MD; Seb Powell DO Signed EMERGENCY DEPARTMENT Observed: 05/29/2018 Status: F Source: [place] SUMMARY 8:56 AM [facility] REPOSITORY [facility] Medical Records Department [address] [place] [address] Emergency Department Summary 05/29/18 0813 MR#: [id number] Acct: [id number] Name: ANDREW STANFORD Rep #: [id number] : 1960 57 From: Ken Ramon MD [...] Postoperative bleeding This note was generated with Meridium dictation software. It may contain incorrect words, spelling, and punctuation that were not noted in review of the chart prior to signing ED Disposition - Plan for ED Patient: Disposition: Acute Care Hospital [facility] Chief Complaint: Other, Pain/Inj What to do if you have Problems For any increased pain, shortness of breath, bleeding, nausea or vomiting, chest pain, or any unexpected problems, contact your Primary Care Provider. Call [employer] [facility] ([phone]) or report to the closest Emergency Room. Call 911 if necessary. 05/29/18 0856 <Electronically signed by Ken Ramon MD> Date Ken Ramon MD Cosigner Signature (If Indicated): Date ___ CC: Blayne Hernandez MD DISCHARGE INSTRUCTION Observed: 05/29/2018 Status: F Source: [place] 7:55 AM [facility] REPOSITORY [facility] Medical Records Department [address] [place] [address] [place] [address] Instructions for Home/Discharge Instructions 05/29/18 0754 MR#: [id number] Acct: [id number] Name: ANDREW STANFORD Rep #: [id number] : 1960 57 From: Crow Newsome MD [...] AND PHYSICAL Observed: 05/29/2018 Status: F Source: [place] EXAM 7:51 AM [facility] Medical Records Department [address] [place] [address] History and Physical 05/29/18 0745 MR#: [id number] Acct: [id number] Name: HIENANDREW April Rep #: [id number] : 1960 57 From: Crow Newsome MD PCP: Blayne Hernandez MD Status: ADM MATTY Y Location: [place] [address] Problem List (1) Malignant neoplasm of tonsil [...] signed by Crow Newsome MD> Date Crow eNwsome MD Cosigner Signature: Date (if applicable) CC: Blayne Hernandez MD; Crow Newsome MD Signed CBC W/DIFF, AUTOMATED Collected: 05/29/2018 Status: F Source: [place] 1:50 AM [facility] REPOSITORY TYPE CODE TESTS RESULT OUT OF [...] Lymph 1.44 Performed By: #### L100.0100 #### [facility] [address] [facility] [place], [address] PROTHROMBIN TIME W/INR Collected: 05/29/2018 Status: F Source: [place] 1:50 AM [facility] REPOSITORY TYPE CODE TESTS RESULT OUT OF RANGE REFERENCE UNITS LAB L300.4150 11.7-14.9 SECONDS Normal PROTIME 13.8 LAB L300.4200 Normal INR 1.1 Performed By: #### L300.3900, L300.4310 #### [facility] [address] [place], [place], [address] PARTIAL THROMBOPLAST Collected: 05/29/2018 Status: F Source: [place] TIME 1:50 AM [facility] REPOSITORY TYPE CODE TESTS RESULT OUT OF RANGE REFERENCE UNITS LAB L300.4310 24.1-36.2 Seconds Normal PTT 33.8 Performed By: #### L300.3900, L300.4310 #### [facility] [address] [place], [address] BASIC METABOLIC Collected: 05/29/2018 Status: F Source: [place] PROFILE (BMP) 1:50 AM [facility] REPOSITORY TYPE CODE TESTS RESULT OUT OF [...] GAP 9 Performed By: #### L500.2500 #### [facility] [address] [place], [address] DISCHARGE INSTRUCTION Observed: 05/23/2018 Status: F Source: [place] 10:07 AM [facility] REPOSITORY [facility] Medical Records Department [address] [place] [address] Instructions for Home/Discharge Instructions 05/23/18 1006 MR#: [id number] Acct: [id number] Name: ANDREW STANFORD Rep #: [id number] : 1960 57 From: Crow Newsome MD [...] OPERATIVE REPORT Observed: 05/23/2018 Status: F Source: [place] 10:06 AM [facility] Medical Records Department [address] [place] [address] Operative Report 05/23/18 0957 MR#: [id number] Acct: [id number] Name: ANDREW STANFORD Rep #: [id number] : 1960 57 From: Crow Newsome MD PCP: Blayne Hernandez MD Status: REG [facility] Y Location: [place] [address] Problem List (1) Malignant neoplasm of tonsil [...] placed and the patient suspended from the [place] stand. The oral cavity examined and is [...] 05/23/2018 Status: F Source: [place] 8:55 AM [facility] REPOSITORY Patient: ANDREW STANFORD : 1960 (57/M) Acct Num: [id number] Phys: Crow Newsome MD Unit Num: [id number] Loc: [facility] Specimen: [id number] Received: 05/23/1829 Spec Type: TONSILS TISSUES 1 TISSUES: A. Tonsil, NOS B. Tonsil, NOS C. Tonsil, NOS COMMENT C. Immunohistochemistry ([id number]) supports the above diagnosis. The carcinoma extends [...] cassettes. / AM: 05/24/18 TC: 0 CPT: 26030 x2, 76104, [address], [address] HEADER OPERATION: Tonsillectomy PRE-OP DIAGNOSIS: Left tonsil [...] ulceration. See Comment. AM:brigida 05/25/18 Signed Azael [facility] 05/28/18 <signature on file> Performed By: #### PTONS #### [facility] [address] [place] [address]. [place], [address] IMMUNOHISTOCHEMISTRY Observed: 05/23/2018 Status: F Source: [place] 12:00 AM [facility] REPOSITORY Patient: ANDREW STANFORD : 1960 (57/M) Acct Num: [id number] Phys: Crow Newsome MD Unit Num: [id number] Loc: [facility] Specimen: [id number] Received: 05/25/180 Spec Type: IMMUNO TISSUES 1 TISSUES: C. Tonsil, NOS SPECIMEN INFORMATION: Tissue Source: C - Right radical tonsillectomy Clinical Info: Left tonsil mass Specimen Number: [id number] CPT code: 41827, 30178 x6 METHODOLOGY: Deparaffinized sections of prefer/formalin-fixed tissue [...] developed and their performance characteristics determined by [facility]. They may not have been cleared or approved by the U.S. Food and Drug Administration. The FDA has determined that such clearance or approval is not necessary. INTERPRETATION: C. 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 Case has been reviewed in consultation with Dr. Beaver who concurs with the above diagnosis. IDC:JABIER AM:brigida 05/30/18 PHYSICIAN AND INSTITUTION [address] [address] Signed Azael [facility] 05/30/18 <signature on file> Performed By: #### PIMM #### [facility] [address] [place], [address] 12 LEAD ELECTROCARDIOGRAM Observed: 05/22/2018 Status: F Source: [place] 9:09 AM [facility] REPOSITORY [facility] Cardiovascular Services [address] [place] [address] 12 Lead EKG 05/18/18 1324 MR#: [id number] Acct: [id number] Name: ANDREW STANFORD Rep #: [id number] : 1960 57 From: Luis Tejada MD Attending Dr: Crow Newsome MD Status: REG CLI Ordering Dr: Crow Newsome MD Date: 05/18/18 Location: [facility] Sex: M C Admitted: Test Reason : PRE-OP Blood Pressure : / mmHG Vent. Rate : 082 BPM Atrial Rate : 082 BPM P-R Int : 142 ms QRS Dur : 092 ms QT Int : 362 ms P-R-T Axes : 060 066 049 degrees QTc Int : 422 ms Normal sinus rhythm Normal ECG Confirmed by LUIS TEJADA ([id number]), editor at large ALAINA ANDINO ([id number]) on 05/22/2018 9:09:11 AM Referred By: Crow Newsome Confirmed By:LUIS TEJADA 05/22/18 0909 Date Luis Tejada MD CC: Blayne Hernandez MD; Crow Newsome MD Signed SOFT TISSUE NECK WITH Observed: 05/17/2018 Status: F Source: [place] CONTRAST 1:15 PM [facility] REPOSITORY [facility] Imaging Services [address] [place] [address] Soft Tissue Neck WITH Contrast MR#: [id number] Acct: [id number] Name: ANDREW STANFORD Rep #: [id number] : 1960 M 57 From: Freddie Martinez MD PCP: Blayne Hernandez MD Status: REG CLI Study: Soft Tissue Neck WITH Contrast Date of Exam: 05/17/18 Exam# [id number] Ordering Dr: Crow Newsome MD STUDY: CT [...] FINDINGS: Normal bilateral parotid glands. Normal bilateral banking representative spaces. Normal bilateral parapharyngeal spaces. There is [...] CC: Blayne Hernandez MD; Crow Newsome MD Ham Boner: Signed CHEST WITH CONTRAST Observed: 05/17/2018 Status: F Source: [place] 1:15 PM [facility] REPOSITORY [facility] Imaging Services [address] [place] [address] Chest WITH Contrast MR#: [id number] Acct: [id number] Name: ANDREW STANFORD Rep #: [id number] : 1960 M 57 From: Freddie Martinez MD PCP: Blayne Hernandez MD Status: REG CLI Study: Chest WITH Contrast Date of Exam: 05/17/18 Exam# [id number] Ordering Dr: Crow Newsome MD STUDY: CT [...] CC: Blayne Hernandez MD; Crow Newsome MD Ham Boner: Signed CBC W/DIFF, AUTOMATED Collected: 05/17/2018 Status: F Source: [place] 1:07 PM [facility] REPOSITORY TYPE CODE TESTS RESULT OUT OF [...] Lymph 1.57 Performed By: #### L100.0100 #### [facility] [address] [place], [place], [id number] BASIC METABOLIC Collected: 05/17/2018 Status: F Source: [place] PROFILE (BMP) 1:07 PM [facility] REPOSITORY TYPE CODE TESTS RESULT OUT OF [...] GAP 10 Performed By: #### L500.2500 #### [facility] [address] [place], [address] INTERNAL MEDICINE Observed: 04/26/2018 Status: F Source: [place] OFFICE VISIT 6:03 PM [facility] REPOSITORY [facility] [address] [place] [address] [place] [address] OFFICE VISIT Date of Service: 04/25/18 MR#: [id number] Acct: [id number] Name: HIENANDREW April Rep #: [id number] : 1960 Provider: Blayne Hernandez MD Age/Sex: 57/M Location: [facility] Status: Signed Intake Vital Signs04/25/18 Height 5 ft 9 in 04/25/18 Weight: 140 lb Intake Visit Reasons: EST CARE Social Science Instructor Required: No Accompanied by: None Is patient [...] next visit. This note was generated with Meridium dictation software. It may contain incorrect words, spelling, and punctuation that were not noted in checking the note before signing. Coding Level of Care Code Off vis,new,level 3 Diagnoses Painful swallowing R13.10 Hypertension I10 04/26/18 4223 <Electronically signed by Blayne Hernandez MD> Date Blayne Mary Gibbons Signature: Date (if applicable) CC: Observed: 04/13/2018 Status: F Source: [place] CULTURE, R/O STREP A 5:26 PM [facility] REPOSITORY [place] Culture No Group A Beta Streptococcus isolated. * This cultures intended use is to screen for Beta Streptococcus A only. All other pathogens and potential pathogens will not be screened for or reported. If a complete workup of all potential pathogens is indicated an order for a routine throat culture is required. Performed By: #### M100.010 #### [facility] [address] [place], [place], [address] URGENT CARE VISIT Observed: 04/13/2018 Status: F Source: [place] REPORT 12:43 PM [facility] REPOSITORY [facility] [address] [place] [address] 6 [place] [address] OFFICE VISIT Date of Service: 04/13/18 MR#: [id number] Acct: [id number] Name: ANDREW STANFORD April Rep #: [id number] : 1960 Provider: Angel JONES Age/Sex: 57/M Location: [facility] Status: Signed Intake Vital Signs04/13/18 Height 5 [...] dental pain. Patient has been seen at [facility] ED for the same complaint and was started on penicillin 4 times daily for 10 days however then was changed to clindamycin by his dentist at the [facility]. Patient reports that he has had multiple [...] swelling Exam Const General: cooperative, healthy appearing [facility] Head: normal to inspection Ears: hearing grossly [...] EMERGENCY DEPARTMENT Observed: 04/10/2018 Status: F Source: [place] SUMMARY 8:02 AM [facility] Medical Records Department [address] [place] [address] Emergency Department Summary 04/10/18 0757 MR#: [id number] Acct: [id number] Name: ANDREW STANFORD Rep #: [id number] : 1960 57 From: Michael Johnson MD [...] Dental caries This note was generated with Origin Digitalation software. It may contain incorrect words, spelling, and punctuation that were not noted in review of the chart prior to signing ED Disposition - Plan for ED Patient: Disposition: Home or Assisted Living Chief Complaint: Dental Instructions: ED Tooth Pain, ED URI Viral Referrals: Christina Humphrey MD [Primary Care Provider] - 10-14 Days if not better Additional Instructions: Recommend contacting [facility] clinic or going to the clinic for your dental symptoms. What to do if you have Problems For any increased pain, shortness of breath, bleeding, nausea or vomiting, chest pain, or any unexpected problems, contact your Primary Care Provider. Call [facility] ([phone]) or report to the closest Emergency Room. Call 911 if necessary. 04/10/18 0802 <Electronically signed by Michael Johnson MD> Date Michael Johnson MD Cosigner Signature (If Indicated): Date CC: Christina Humphrey MD; Mahnaz Rebollar EMERGENCY DEPARTMENT Observed: 04/05/2018 Status: F Source: [place] SUMMARY 10:23 AM [facility] REPOSITORY [facility] Medical Records Department [address] [place] [address] Emergency Department Summary 04/05/18 1018 MR#: [id number] Acct: [id number] Name: ANDREW STANFORD Rep #: [id number] : 1960 57 From: Crow Damon DO [...] dental caries This note was generated with Origin Digitalation software. It may contain incorrect words, [...] your Primary Care Provider. Call [facility] ([phone]) or report to the closest Emergency Room. Call 911 if necessary. 04/05/18 1023 <Electronically signed by Crow Damon DO> Date Crow Damon DO Cosigner Signature (If Indicated): Date CC: Christina Humphrey MD ALLERGIES ALLERGIES DATE TYPE / CODE NAME / CODE REACTION SEVERITY SOURCE 07/05/2018 Drug bee venom Angioedema Unknown [place] [facility] 637281(SNOM bee)/[id number] Repository ED CT) 5(RXNORM) 04/05/2018 Drug bee Unknown Unknown [facility] Allergy/416 pollen/H866804 Hospital 870238(SNOM 890(RXNORM) Repository ED CT) ENCOUNTERS ENCOUNTERS ADMIT/DISCHARGE ACCOUNT ADMITTING ENCOUNTER LOCATION SOURCE NUMBER CLASS 07/10/2018 [id number] Ambulatory BMSBuilding:B [place] 2 [facility] Repository 07/05/2018 [id number] Ambulatory BMSBuilding:B [place] 5 [facility] Repository 07/05/2018 [id number] Ambulatory [place] [facility] ing:ONC Repository 07/03/2018 [id number] Ambulatory [place] 8 [facility] ing:NS Repository 06/22/2018/ [id number] Ambulatory [place] 8 9 [facility] ing:NS Repository 06/22/2018 [id number] Ambulatory BMSBuilding:B [place] 0 [facility] Repository 06/22/2018 [id number] Ambulatory BMSBuilding:W [place] 4 [facility] Repository 06/22/2018 [id number] Ambulatory [place] 2 [facility] ing:OROURKE Repository 06/20/2018/ [id number] Ambulatory [place] 8 0 [facility] ing:ENRoom: Repository AC06 06/18/2018/ [id number] Ambulatory BMSBuilding:B [place] 8 9 [facility] Repository 06/12/2018 [id number] Ambulatory BMSBuilding:B [place] 1 [facility] Repository 06/07/2018 [id number] Ambulatory BMSBuilding:B [place] 6 [facility] Repository 05/29/2018/ [id number] Crow Newsome Ambulatory [place] 8 8 [facility] ing:OL8Cwhl: Repository TY597Dfo: 1 05/23/2018/ [id number] Ambulatory [place] 8 1 [facility] ing:SDCRoom: Repository AC20 05/18/2018 [id number] Ambulatory [place] [facility] Repository 05/17/2018 [id number] Ambulatory [place] 2 [facility] ing:CT Repository 04/25/2018/ [id number] Ambulatory BMSBuilding:B [place] 8 9 [facility] Repository 04/13/2018 [id number] Ambulatory [place] 5 [facility] ing:LABSPEC Repository 04/13/2018/ [id number] Ambulatory BMSBuilding:B [place] 8 3 [place] Repository 04/10/2018/ [id number] Emergency [place] 8 7 [facility] ing:ED Repository 04/05/2018/ [id number] Emergency [place] 8 1 [facility] ing:ED Repository PAYERS PAYERS ENCOUNTER GUARANTOR PAYER SUBSCRIBER SOURCE 07/10/2018 ANDREW E Primary ANDREW [id number] SPINK Insurance:MOLINAPolic HARTMANDOB: Community [address] [place] [address], y Number: [id number] [address]80Byl: [id number] Repository Date:8761-88-90TN B[address] () [address] [place] [address] 23263KI: 07/10/2018 Secondary NOT GIVENUNK [place] Insurance:SELF PAY [facility] Number: Effective Repository Date:2018-07-10 07/05/2018 ANDREW E Primary ANDREW E [place] [id number] SPINK Insurance:MOLINAPolic HARTMANDOB: Community [address] [place], y Number: [id number] [facility] 30249Fgd: [id number] Repository Date:2634-92-44QK BOX ) [address] [place] [address] 15005UX: 07/05/2018 Secondary NOT GIVENUNK [place] Insurance:SELF PAY [facility] Number: Effective Repository Date:2018-07-05 07/05/2018 ANDREW E Primary ANDREW E [place] [id number] SPINK Insurance:MOLINAPolic HARTMANDOB: Community [address], y Number: [id number] [facility] 07101Jcp: [id number] Repository Date:8784-52-90MW [address] () [address] [place] [address] 79486ET: 07/05/2018 Secondary NOT GIVENUNK [place] Insurance:SELF PAY [facility] Number: Effective Repository Date:2018-06-05 07/03/2018 ANDREW E Primary NOT GIVENUNK [place] [id number] SPINK Insurance:SELF PAY Community [address] [place], [place] [id number]: Number: Effective Repository Date:2018-06-23 () 06/22/2018 ANDREW E Primary NOT GIVENUNK [place] [id number] [place] Insurance:SELF PAY Community [address] [place], [place] [id number]: Number: Effective Repository Date:2018-06-22 () 06/22/2018 ANDREW E Primary ANDREW E [place] [id number] SPINK Insurance:MOLINAPolic HARTMANDOB: Community [address], y Number: [id number] [address]Jci: [id number] Repository Date:3021-07-66SR [address] () [address] [place] [address] 91501GC: 06/22/2018 Secondary NOT GIVENUNK [place] Insurance:SELF PAY [facility] Number: Effective Repository Date:2018-06-22 06/22/2018 ANDREW E Primary ANDREW E [place] [id number] SPINK Insurance:MOLINAPolic HARTMANDOB: Community [address], y Number: [id number] Cancer Center 00444Qbh: [id number] Repository Date:9662-00-28WA B[address] () [address] [place] [address] 24523DJ: 06/22/2018 Secondary NOT GIVENUNK [place] Insurance:SELF PAY [facility] Number: Effective Repository Date:2018-06-22 06/22/2018 ANDREW E Primary ANDREW E [place] [id number] SPINK Insurance:MOLINAPolic HARTMANDOB: Community [address], y Number: [id number] [facility] Center 17118Sac: [id number] Repository Date:1355-45-10NS [address] ([address] [address]SF: 06/22/2018 Secondary NOT GIVENUNK [place] Insurance:SELF PAY [facility]: Effective Repository Date:2018-06-05 06/20/2018 ANDREW E Primary ANDREW E [place] [id number] SPINK Insurance:MOLINAPolic HARTMANDOB: Community [address], y Number: [id number] Cancer Center 38783Acx: [id number] Repository Date:7574-19-62KH [address] ([address] [address]US: 06/20/2018 Secondary NOT GIVENUNK [place] Insurance:SELF PAY [facility] Number: Effective Repository Date:2018-06-18 06/18/2018 ANDREW E Primary ANDREW E [place] [id number] SPINK Insurance:MOLINAPolic HARTMANDOB: Community [address], y Number: [id number] [facility] 12963Pkq: [id number] Repository Date:6969-39-36KN [address]OX () [address] [place] [address] 62426QP: 06/18/2018 Secondary NOT GIVENUNK [place] Insurance:SELF PAY [facility] Number: Effective Repository Date:2018-06-12 06/12/2018 ANDREW E Primary ANDREW E [place] [id number] SPINK Insurance:MOLINAPolic HARTMANDOB: Community [address], y Number: [id number] Cancer Center 33383Arr: [id number] Repository Date:0944-91-28YG BOX () [address] [place] [address] 85735TL: 06/12/2018 Secondary NOT GIVENUNK [place] Insurance:SELF PAY [facility] Number: Effective Repository Date:2018-06-12 06/07/2018 ANDREW E Primary ANDREW E [place] [id number] SPINK Insurance:MOLINAPolic HARTMANDOB: Community [address], y Number: [id number] [facility] Center 63705Btl: [id number] Repository Date:0544-48-20FQ B[address] () [address] [place] [address] 60298KS: 06/07/2018 Secondary NOT GIVENUNK [place] Insurance:SELF PAY [facility] Number: Effective Repository Date:2018-06-07 05/29/2018 ANDREW E Primary ANDREW E [place] [id number] SPINK Insurance:MOLINAPolic HARTMANDOB: Community [address], y Number: [id number] [facility] 69474Snt: [id number] Repository Date:9913-23-96LB BOX () [address] [place] [address] 78860PN: 05/29/2018 Secondary NOT GIVENUNK [place] Insurance:SELF PAY [facility] Number: Effective Repository Date:2018-05-29 05/23/2018 ANDREW E Primary ANDREW E [place] [id number] SPINK Insurance:MOLINAPolic HARTMANDOB: Community [address], y Number: [id number] Cancer Center 66982Odh: [id number] Repository Date:7947-34-44YI BOX () [address] [place] [address] 53568PA: 05/23/2018 Secondary NOT GIVENUNK [place] Insurance:SELF PAY [facility] Number: Effective Repository Date:2018-05-21 05/18/2018 ANDREW E Primary ANDREW E [place] [id number] SPINK Insurance:MOLINAPolic HARTMANDOB: Community [address], y Number: [id number] Cancer Center 97001Xzh: [id number] Repository Date:0253-38-46PS BOX () [address] [place] [address] 24956IN: 05/18/2018 Secondary NOT GIVENUNK [place] Insurance:SELF PAY [facility] Number: Effective Repository Date:2018-05-18 05/17/2018 ANDREW E Primary ANDREW E [place] [id number] SPINK Insurance:MOLINAPolic HARTMANDOB: Community [address], y Number: [id number] [facility] 18184Veg: [id number] Repository Date:8821-45-52IR BOX () [address] [place] [address] 33239FD: 05/17/2018 Secondary NOT GIVENUNK [place] Insurance:SELF PAY [facility] Number: Effective Repository Date:2018-04-30 04/25/2018 ANDREW E Primary ANDREW E [place] [id number] SPINK Insurance:MOLINAPolic HARTMANDOB: Community [address], y Number: [id number] [facility] Center 80836Rdw: [id number] Repository Date:6843-63-99TP BOX () [address] [place] [address] 14684KJ: 04/25/2018 Secondary NOT GIVENUNK [place] Insurance:SELF PAY [facility] Number: Effective Repository Date:2018-04-11 04/13/2018 ANDREW E Primary ANDREW E [place] [id number] SPINK Insurance:MOLINAPolic HARTMANDOB: Community [address], y Number: [id number] Cancer Center 09226Oyl: [id number] Repository Date:8787-10-45UT BOX () [address] [place] [address] 34799MC: 04/13/2018 Secondary NOT GIVENUNK [place] Insurance:SELF PAY [facility] Number: Effective Repository Date:2018-04-13 04/13/2018 ANDREW E Primary ANDREW [id number] [place] Insurance:MOLINAPolic HARTMANDOB: Community [address], y Number: [id number] [facility] 21757Pzs: [id number] Repository Date:3756-34-04DU BOX () [address] [place] [address] 94319KW: 04/13/2018 Secondary NOT GIVENUNK [place] Insurance:SELF PAY [facility] Number: Effective Repository Date:2018-04-13 04/10/2018 ANDREW E Primary ANDREW E [place] [id number] [place] Insurance:MOLINAPolic HARTMANDOB: Community [address], y Number: [id number] [facility] Center 45173Fpc: [id number] Repository Date:3501-20-55LI [address]OX () [address] [place] [address] 53114LP: 04/10/2018 Secondary NOT GIVENUNK [place] Insurance:SELF PAY [facility] Number: Effective Repository Date:2018-04-10 04/05/2018 ANDREW E Primary ANDREW [place] [id number] [place] Insurance:MOLINAPolic HARTMANDOB: Community [address], y Number: [id number] Cancer Center 50[address]Iby: [id number] Repository Date:9218-00-63WE [address] () [address] [place] [address] 05565KA: 04/05/2018 Secondary NOT GIVENUNK [place] Insurance:SELF PAY [facility] Number: Effective Repository Date:2018-04-05
== END 2018-06-22 23:59 ==
LOC: NS 11:27
PROVIDERS: Family Provider Internal Medicine; PCP Internal Medicine; Visit Provider Student in an Organized Health Care Education/Training Program
DX: R63.4 Abnormal weight loss (principal); R13.10 Dysphagia, unspecified; C09.9 Malignant neoplasm of tonsil, unspecified; Z71.3 Dietary counseling and surveillance

== ENCOUNTER → 2018-08-03 12:45 | Outpatient (CLI) | payer MEDICAID, SELFPAY ==
[2018-06-12 10:03] VITALS: BMI 20.7
[2018-08-03 09:34] VITALS: BMI 20.8
--- NOTE | 2018-08-03 13:00 | SP.MBSS_ITS ---
PRIMARY / SECONDARY DIAGNOSIS: dysphagia (R13.12) REFERRING PHYSICIAN: Dr. 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 SUPPLEMENTARY DYSPHAGIA ASSESSMENT RESULTS: Total Dysphagia Risk Score (TDRS): 23 - High risk (TDRS > 18). 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 STUDY FINDINGS: Patient participated in a Modified Barium Swallow (MBS) study on 08/03/2018. This study was recorded in the lateral view and images were sent to PACs for storage. The following consistencies were presented to this patient for analysis of oropharyngeal swallow function: thin liquids, nectar thickened liquids, pudding, and a soft textured, Nadeen Doone cookie soaked in thin liquids. Results of the MBS are as follows: PENETRATION / ASPIRATION SCALE (TRAVIS): 1 = does not enter airway 2 = enters airway/above vocal folds/ejected 3 = enters airway/above vocal folds/not ejected 4 = enters airway/contacts vocal folds/ejected 5 = enters airway/contacts vocal folds/not ejected 6 = enters airway/below vocal folds/ejected 7 = enters airway/below vocal folds/not ejected despite effort 8 = enters airway/below vocal folds/no effort VIDEOFLOROSCOPIC SCALE SCORE (TRAVIS): Grade I = aspiration of material that has penetrated into the laryngeal vestibule, intact cough reflex Grade II = aspiration < 10 % of the bolus, intact cough reflex Grade III = aspiration of < 10 % of the bolus, reduced cough reflex or aspiration of > 10 % of the bolus, intact cough reflex Grade IV = aspiration of > 10 % of the bolus, reduced cough reflex PENETRATION / ASPIRATION SCALE (SCORE) WITH VIDEOFLOROSCOPIC SCALE SCORE: Thin liquid - 5 mL tsp.: 1 Thin liquids via cup (single sip): 2 Thin liquids via cup (single sip): 7 ? Grade I Thin liquids via cup (chin tuck): 7 ? Grade I Thin liquids via cup (chin tuck): *NA Thin liquids via cup (chin tuck): 5 [place] thickened liquids via cup (single sip): 1 [place] thickened liquids via cup (single sip): 1 [place] thickened liquids via cup (single sip): 1 Pudding via spoon: 1 Soft textured cookie: 1 [place] thickened liquids via cup (large volume): 2 [place] thickened liquids via cup (large volume): 2 [place] thickened liquids via cup (small volume): 1 [place] thickened liquids via cup (small volume): 1 [place] thickened liquids via cup (small volume): 2 * could not view due to Patient motion IMPRESSION: DIAGNOSIS: moderate oropharyngeal dysphagia (R13.12) SWALLOWING PERFORMANCE SCALE (SPS) SCORE: 5 (moderate) DYNAMIC IMAGING GRADE OF SWALLOW TOXICITY (DIGEST): Grade II DIGEST SAFETY: Grade II DIGEST EFFICIENCY: Grade I ORAL PHASE CHARACTERIZED BY: LABIAL SEAL: no labial escape TONGUE CONTROL DURING BOLUS MANIPULATION: posterior escape of less than half of bolus BOLUS PREPARATION / MASTICATION: NA BOLUS TRANSPORT / LINGUAL MOTION: brisk tongue motion ORAL RESIDUE: residue collection on oral structures PHARYNGEAL PHASE CHARACTERIZED BY: INITIATION OF PHARYNGEAL SWALLOW: bolus head in valleculae at first hyoid excursion SOFT PALATE ELEVATION: escape to nostril with/without emission LARYNGEAL ELEVATION: complete superior movement of thyroid cartilage with complete approximation of arytenoids cartilage to epiglottic petiole ANTERIOR HYOID EXCURSION: partial anterior movement EPIGLOTTIC MOVEMENT: complete epiglottic inversion LARYNGEAL VESTIBULE CLOSURE AT HEIGHT OF SWALLOW: incomplete laryngeal vestibule closure with narrow column of air/contrast in laryngeal vestibule PHARYNGEAL STRIPPING WAVE: pharyngeal stripping wave present / diminished PHARYNGOESOPHAGEAL SEGMENT OPENING: partial distension and partial duration; partial obstruction of flow TONGUE BASE RETRACTION: narrow column of contrast between tongue base and posterior pharyngeal wall PHARYNGEAL RESIDUE: collection of residue within or on pharyngeal structures ESOPHAGEAL PHASE CHARACTERIZED BY: ESOPHAGEAL BOLUS CLEARANCE IN THE UPRIGHT POSITION: could not view EFFECTS OF TREATMENT STRATEGIES ATTEMPTED: Chin tuck posture = moderately effective Cough and reswallow = ineffective Cued expectoration = moderately effective Effort swallow = moderately effective Double swallow = moderately effective Liquid chaser = moderately effective Reduced bolus size = moderately effective DIET TEXTURE RECOMMENDATIONS: Will recommend a regular-soft textured, nectar thickened liquid diet. 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 Unable to fully assess the oral preparatory phase, as the Patient reports development of intraoral pain / discomfort over the last few days precluding consumption of regular textures, with the regular textured Nadeen Doone shortbread cookie soaked in thin liquid barium requiring limited mastication precluding scoring through the MBSImP format. Oral transportation phase marked by intermittent premature posterior bolus loss with thin liquids, otherwise unremarkable. Pharyngeal phase primarily marked by poor pharyngeal motility complicated by poor pharyngeal peristalsis (particularly with the posterior stripping wave action, with minimal movement noted to contract somewhat irregularly) combined with poor pharyngoesophageal segment relaxation resulting in consistent moderate retention within the pharynx directly contributing to post prandial penetration and subsequent aspiration with thin liquids; insufficient / inconsistent laryngeal vestibule pressure generated to expel penetrated material attributed to reduced anterior hyoid excursion; significant velopharyngeal insufficiency with rather consistent and at times copious bolus escape into the nasal cavity extending to and slightly outside of the right nares with liquid viscosities. All deficits managed through bolus volume, rate, and viscosity adjustments. Questionable mild cricopharyngeal bar located at the C-6 C-7 level, though the entirety of the pharyngoesophageal segment failed to fully relax complicating I identification, though little if any clinical significance is attributed to its presence. Patient noted to overtly aspirate during trials of thin liquids, suggesting clinical assessment at bedside relying on identification of classic overt signs and symptoms of aspiration may be sufficient to determine appropriateness for PO texture upgrade to thin liquids. RECOMMENDATIONS: Recommend a repeat modified barium swallow study within 1-2 months post chemoradiation to further assess the Patients oropharyngeal swallow function and identify any post radiation changes in the oropharyngeal physiology, as the patient is at higher risk for continual changes and possible decline in swallow functioning / dysphagia severity throughout the chemoradiation intervention cycle; would benefit from continued monitoring and treatment plan adjustments as necessary. Would consider this Patient to be at higher risk for both reduced caloric intake and dehydration due to the recommended diet texture restrictions, as increased liquid viscosities may lead to reduced liquid intake and quicker satiety during meals. Would consider implementation of the Glass Free Water Protocol (FFWP) following Patient and family education IF the Patient has the adequate level of supervision FOLLOWING physician clearance. Would further consider the Patient at higher risk of pulmonary complications associated with aspiration (due to the Patients likely impaired immune response during chemoradiation and presence of aspiration under fluoroscopy). Would consider the Patient to be at higher risk of non-compliance; will adjust treatment plan as appropriate with continued collaboration with the Patients oncology team. Will continue to recommend an aggressive oral care program that includes pre-rinse use prior to water intake; routine oral care in the a.m., prior to oral intake, after oral intake, and prior to bed via toothbrush / swab / rinse; and frequent dental checkups post-irradiation. The Patient requires continued intensive skilled speech-language intervention targeting diet texture management and training / implementation of recommended compensatory strategies (consider training for the supraglottic swallow maneuver and chin tuck posture); Patient / caregiver training targeting meal preparation / thickened liquid preparation; training, implementation, and Patient education regarding implementation of the FFWP following physician clearance; continued training and implementation of a home based prophylactic swallowing exercise program to promote the highest level of preserved post-irradiation swallow functioning; training and implementation of a home oral care protocol to reduce the effects of xerostomia and improve / maintain the integrity of the oral mucosa reducing the risk of aspiration related pulmonary complications; and Patient / caregiver education regarding dory and post-irradiation dysphagia and associated symptomology. ADDITIONAL COMMENTS/RECOMMENDATIONS: Results and recommendations were discussed with the Patient immediately following MBS completion, with the Patient verbalizing understanding and agreement with all recommendations and education provided. IMAGE COUNT: 1918 Tesfaye Ewing M.A., CCC-CARE DIRECTOR RN MBSImP Certified [facility] Speech-Language Pathology Department [email or web address]
--- NOTE | 2018-08-03 13:01 | RAD_ITS ---
STUDY: SWALLOWING STUDY REASON FOR EXAM: Male, 58 years old. Dysphagia. TECHNIQUE: The examination was performed with Speech Pathology in attendance. Under fluoroscopic observation, the patient ingested thin barium, thick barium, barium pudding, and barium coated cracker. FLUOROSCOPY TIME: 2:02 minutes/seconds. 1918 fluoroscopic images were obtained. RADIOLOGIST INVOLVEMENT: Radiologist was present and providing direct supervision. COMPARISON: None. FINDINGS: The following was observed during swallowing of the various mixtures of barium: Thin Barium: There is overt aspiration with ingestion of thin liquids. Thick Barium: Intermittent transient penetration. This improves with reduced bolus volume. Barium Pudding: There was no evidence of aspiration or laryngeal penetration. Barium Coated Cracker: There was no evidence of aspiration or laryngeal penetration. RAD/Swallowing Function w/Video IMPRESSION: Aspiration with ingestion of thin liquids. Transient penetration with ingestion of thickened liquids. The swallow study findings were discussed with the patient by the speech pathologist at the conclusion of the examination. Please see speech pathology report for more information and recommendations. Electronically Signed: Dominik Chaidez MD at 14:47 EST Tel [phone], Service support ,
== END ==
PROVIDERS: Family Provider Internal Medicine; PCP Internal Medicine; Referring Provider Internal Medicine; Visit Provider Internal Medicine
DX: Z51.0 Encounter for antineoplastic radiation therapy (principal); R13.12 Dysphagia, oropharyngeal phase; C09.9 Malignant neoplasm of tonsil, unspecified
CPT/HCPCS: 74230; 77386; 92611; J7120

== ENCOUNTER 2018-08-06 09:30 | Outpatient (RCR) | payer MEDICAID, SELFPAY ==
[2018-06-12 10:03] VITALS: BMI 20.7
[2018-08-06 09:28] VITALS: BMI 20.8
== END 2018-08-06 10:00 ==
LOC: SP 09:30
PROVIDERS: Family Provider Internal Medicine; PCP Internal Medicine; Visit Provider Student in an Organized Health Care Education/Training Program
DX: R13.10 Dysphagia, unspecified (principal)
CPT/HCPCS: 92526

== ENCOUNTER → 2018-10-08 13:58 | Outpatient (CLI) | payer MEDICAID, SELFPAY ==
[2018-06-12 10:03] VITALS: BMI 20.7
[2018-08-29 09:07] VITALS: BMI 19.6
--- NOTE | 2018-10-08 14:04 | VDUE_ITS ---
Reason For Study: Neck Pain Right Proximal Right jugular vein is spontaneous, widely patent, phasic, with no intraluminal echogenicity noted. Right subclavian vein is spontaneous, widely patent, phasic, with no intraluminal echogenicity noted. Right Arm Right axillary vein is spontaneous, patent, phasic, competent, compressible and demonstrates augmentation. Interpretation Summary No evidence for acute deep venous thrombosis right upper extremity. Right internal jugular port tubing noted without evidence for thrombosis. Ordering Physician: Crow Newsome Referring Physician: Blayne Hernandez Performed By: Sandra Ryder, BECKA, RVT ?
== END ==
PROVIDERS: Family Provider Internal Medicine; PCP Internal Medicine; Referring Provider Otolaryngology; Visit Provider Otolaryngology
DX: M54.2 Cervicalgia (principal)
CPT/HCPCS: 93971

== ENCOUNTER 2018-10-31 10:00 | Outpatient (RCR) | payer MEDICAID, SELFPAY ==
[2018-06-12 10:03] VITALS: BMI 20.7
[2018-10-24 10:23] VITALS: BMI 20.2
--- NOTE | 2018-11-02 13:00 | SP.MBSS_ITS ---
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 Ortiz Nguyen DO, MS CURRENT DIET: mechanical soft textures, nectar thickened liquids; PEG supplementation. DENTITION: edentulous MENTAL STATUS: sufficient for participation. 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 PREVIOUS MODIFIED BARIUM SWALLOW STUDY: 08/03/2017 MBS revealed moderate oropharyngeal dysphagia (DIGEST: grade II; SPS: 5) with grade I overt aspiration of thin liquids. ASSESSMENT PARAMETERS: The Patient participated in a Modified Barium Swallow (MBS) study on 11/02/2018. Dr. Chaidez was the radiologist present for this evaluation. This study was recorded in the lateral view and images were sent to PACs for storage. Scoring was completed through each trial using the 8-point Penetration-Aspiration Scale (PAS) and the Videofluoroscopic Scale Score (VSS), and summarized via the Modified Barium Swallow Impairment Profile (MBSImP) and the Bolus Residue Scale (BRS), with severity scoring through the Dysphagia Severity Rating Scale (DSRS), Swallowing Performance Scale (SPS) and the Dynamic Imaging Grade of Swallowing Toxicity (DIGEST), and recommended diet textures through the International Dysphagia Diet Standardisation Initiative (IDDSI) RESULTS OF THE EVALUATION: The Patient presents with moderate to severe oropharyngeal dysphagia (DSRS: 5; SPS: 6; DIGEST: grade III) with grade III SILENT aspiration of thin liquids and regular textures secondary to stage III-DYLAN (T3-4a N0-1 Mx) 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 SUPPLEMENTARY DYSPHAGIA ASSESSMENT RESULTS: Total Dysphagia Risk Score (TDRS): 23 - High risk (TDRS > 18). Performance Status Scale for Head & Neck Cancer Patients (PSS-HN): 235/300 Normalcy of Diet: 60 ? dry bread and crackers Public Eatin ? no restriction of place, food, or company Understandability of Speech: 75 ?occasional repetition necessary OBJECTIVE ASSESSMENT OF SWALLOW FUNCTION (QUANTITATIVE ? PER TRIAL): PENETRATION / ASPIRATION SCALE (TRAVIS): 1 = does not enter airway 2 = enters airway/above vocal folds/ejected 3 = enters airway/above vocal folds/not ejected 4 = enters airway/contacts vocal folds/ejected 5 = enters airway/contacts vocal folds/not ejected 6 = enters airway/below vocal folds/ejected 7 = enters airway/below vocal folds/not ejected despite effort 8 = enters airway/below vocal folds/no effort VIDEOFLOROSCOPIC SCALE SCORE (TRAVIS): Grade I = aspiration of material that has penetrated into the laryngeal vestibule, intact cough reflex Grade II = aspiration < 10 % of the bolus, intact cough reflex Grade III = aspiration of < 10 % of the bolus, reduced cough reflex or aspiration of > 10 % of the bolus, intact cough reflex Grade IV = aspiration of > 10 % of the bolus, reduced cough reflex PENETRATION / ASPIRATION SCALE (SCORE) WITH VIDEOFLOROSCOPIC SCALE SCORE: Thin liquid - 5 mL tsp.: 5 Thin liquids via cup (single sip): 8* ? Grade III Thin liquids via cup (single sip): 6* ? Grade I Thin liquids via cup (chin tuck): 1 ? Grade III Thin liquids via cup (supraglottic swallow): 1 ? Grade III Juda thickened liquids via cup (single sip): 5* Juda thickened liquids via cup (single sip): 5* Juda thickened liquids via cup (supraglottic swallow): 3* Juda thickened liquids via tsp. (single sip): 3* Honey thickened liquids via tsp. (single sip): 3 Honey thickened liquids via tsp. (single sip): 3 Honey thickened liquids via tsp. (single sip): 3 Honey thickened liquids via cup (single sip): 5 Honey thickened liquids via cup (single sip): 5 Honey thickened liquids via cup (single sip): 5 Pudding via spoon: 6* Regular textured cookie: 8 ? Grade III Thin liquids via cup (single sip): 5 * denotes marked post prandial progression OBJECTIVE ASSESSMENT OF SWALLOW FUNCTION (QUANTITATIVE ? AGGREGATE): MODIFIED BARIUM SWALLOW IMPAIRMENT PROFILE (MBSImP) LABIAL SEAL: 1 (of 4) interlabial escape, no progression TONGUE CONTROL: 2 (of 3) posterior escape < 50% BOLUS PREPARATION / MASTICATION: 1 (of 3) slow prolonged; complete recollection BOLUS TRANSPORT / LINGUAL MOTION: 0 (of 4) brisk tongue motion ORAL RESIDUE: 2 (of 4) residue collection on oral structures INITIATION OF PHARYNGEAL SWALLOW: 3 (of 4) pyriforms SOFT PALATE ELEVATION: 2 (of 4) escape to nasopharynx LARYNGEAL ELEVATION: 1 (of 3) partial superior movement / approximation ANTERIOR HYOID EXCURSION: 1 (of 2) partial movement EPIGLOTTIC MOVEMENT: 1 (of 2) partial inversion LARYNGEAL VESTIBULE CLOSURE: 1 (of 2) incomplete closure PHARYNGEAL STRIPPING WAVE: 1 (of 2) present / diminished PE SEGMENT OPENIN (of 3) minimal distension / duration; marked obstruction TONGUE BASE RETRACTION: 3 (of 4) wide column of contrast PHARYNGEAL RESIDUE: 3 (of 4) majority of contrast remaining ESOPHAGEAL BOLUS CLEARANCE: 1 (of 4) esophageal retention ORAL TOTAL SUM: 9 / PHARYNGEAL TOTAL SUM: 14 / 29 ESOPHAGEAL TOTAL SUM: 1 / 4 OVERALL IMPRESSION (OI) SCORE: 24 / 55 BOLUS RESIDUE SCALE (BRS): 6 (of 6) residue in valleculae / pharyngeal wall / piriform sinus DYSPHAGIA SEVERITY RATING SCALE (DSRS): 5 (moderate-severe) SWALLOWING PERFORMANCE SCALE (SPS): 6 (moderate to severe) DYNAMIC IMAGING GRADE OF SWALLOWING TOXICITY (DIGEST) DIGEST SAFETY GRADE: Grade III DIGEST EFFICIENCY GRADE: Grade III SUMMARY DIGEST GRADE: Grade III OBJECTIVE ASSESSMENT OF SWALLOW FUNCTION (QUALITATIVE): ORAL PREPARATORY PHASE: oral preparatory phase marked by mastication inefficiency with incomplete full bolus breakdown associated with the Patients chronic edentulous status; sufficient oral containment; preserved management of breathing / bolus formation without disrupted E ? S ? E pattern. ORAL TRANSITIONAL PHASE: oral transitional phase marked by no presence of transitional incompetence without lingual discoordination (no tremor / undulations); inconsistent complete oral clearance without side specific consolidation; premature posterior bolus loss most prominently with less viscous liquids. PHARYNGEAL PHASE: marked pharyngeal dysmotility across all textures, most prominently during trials of more viscous / solid textures, with marked impairment in reduced posterior pharyngeal stripping wave action in addition to reduced tongue based retraction, with copious consolidation particularly within the valleculae, though this was significant as well within the pyriforms with pharyngeal residue consistently penetrating into an opened laryngeal vestibule post deglutition contributing to post prandial penetration; reduced hyolaryngeal excursion directly contributing to prandial penetration with insufficient laryngeal vestibule pressure generated to expel penetrated material; mild pharyngeal phase dyssynchrony complicating laryngeal vestibule protection and contributing to prandial penetration; velopharyngeal insufficiency (improved) with trace escape to nasopharynx ESOPHAGEAL PHASE: esophageal phase marked by esophageal retention within the upper 3rd of the esophagus following trials of more viscous textures without reflux; limited impact on performance. CONTRIBUTING / COMPLICATING FACTORS AND NOTABLE FINDINGS: insufficient volitional cough intensity generated to expel penetrated material (dystussia). Inconsistent volitional cough intensity generated to expel laryngotracheal aspiration (able to expel more solid textures; limited improvement with liquid viscosities). Cricopharyngeal bar located at the C-6 C-7 level, no impact on pharyngoesophageal motility. RESPONSE TO STRATEGIES: insufficient effects noted from a variety of compensatory strategies implemented across studies, to include the chin tuck posture, supraglottic swallow maneuver (though this may improve with training), and an effort swallow; with mild effects noted with reductions in bolus volume and diet texture / viscosity adjustments, in addition to multiple swallows (often led to additional penetration / aspiration), though effects were minimal at best. RECOMMENDATIONS AND CONSIDERATIONS: The Patient was noted to SILENTLY aspirate with thin liquids and surprisingly with regular textures (the Patient would occasionally clear his throat with penetration to the vocal folds, yet did not sufficiently respond to aspiration), with clinical assessment at bedside relying on identification of classic overt signs and symptoms of aspiration considered unreliable. Will consider a repeat modified barium swallow study within 4 - 8 weeks (if clinically appropriate) following training and implementation of compensatory swallow strategies (considerations for the supraglottic swallow maneuver) if the Patient is able to consistently demonstrate and implement targeted strategies AND if the Patient demonstrates independent completion of oropharyngeal swallow exercises outside of intervention sessions. I would consider the Patient to be at a higher risk of aspiration related medical complications / aspiration pneumonia / aspiration related pulmonary syndrome secondary to presence of dysphagia and particularly the extent of pharyngeal phase impairment, the presence and extent of SILENT aspiration identified under fluoroscopy of multiple viscosities under fluoroscopy, potential for tracheobronchial aspiration of more dense viscosities (particularly semisolids / solids), his altered upper aerodigestive tract (oropharyngeal cancer status post irradiation), current edentulous status, continued tube feeding use / dependence, and continued smoking status, with no guarantee of prolonged tolerance of nectar, honey, or pudding thickened liquids. I recommend careful monitoring for temperature spikes, or abnormal fatigue if any overt signs and symptoms of aspiration are noted during PO intake ingestion. I would also consider this Patient to be at high risk for malnutrition and dehydration due to the extent of recommended liquid viscosities / diet texture restrictions, and the related negative impact on palatability / intake pleasure / quality of life and anticipated smaller PO intake quantities; higher risk for early satiety with recommended thicker viscosities, reduced rate of intake with slower viscosities, and the severity of dysphagia. I would strongly caution considerations for removal of the Patients PEG tube at this time. The Patient will require ongoing intervention to reduce the risk of malnutrition (currently receiving care via a registered clinical dietitian) with and without removal of the Patients alternate routes of nutrition. We will consider implementation of the Glass Free Water Protocol (FFWP) following Patient education if strict and aggressive oral care is provided, as this may assist with hydration maintenance. The Patent is additionally at higher risk of oropharyngeal colonization with respiratory pathogens secondary to the Patients elevated risk of malnutrition (if alternative routes of nutrition are removed), current smoking status, history of poor oral hygiene, post irradiation xerostomia, and current placement and use of alternative means of nutrition. Aspiration of saliva contaminated with pathogens can lead to pulmonary infections, with creation, implementation, and adherence to an aggressive oral care program is essential. I will continue to recommend an aggressive oral care program that includes pre-rinse use prior to water intake; routine oral care in the a.m., prior to oral intake, after oral intake, and prior to bed via toothbrush / swab / rinse; use of oral moisturizers as needed to reduce impact of xerostomia. I would consider the Patient to be at higher risk of non-compliance with dietary recommendations secondary to cost / financial considerations (he has already voiced concern with the cost of thickener); distaste of altered liquid viscosities / diet texture recommendations; and anticipated negative impact on quality of life, with overall low compliance rates reported (40%; David et al. 2012). The Patient requires continued intensive skilled speech-language intervention targeting diet texture management and training / implementation of recommended compensatory strategies; Patient training and independent execution of compensatory maneuvers to utilize under fluoroscopy (considerations for the supraglottic swallow maneuver); re-training and implementation of a home based oropharyngeal exercise regimen consisting of recommended oropharyngeal strengthening exercises to facilitate improved oropharyngeal strength / coordination (based on repeat MBS results); continued training and implementation of a home oral care protocol to reduce the effects of xerostomia and improve / maintain the integrity of the oral mucosa reducing the risk of aspiration related pulmonary complications; training, implementation, and Patient / caregiver education regarding implementation of the Glass Free Water Protocol (FFWP); Patient education regarding post-irradiation dysphagia and associated symptomology; and Patient training targeting meal preparation / thickened liquid preparation. Results and recommendations were discussed with the Patient immediately following MBS completion, with the Patient verbalizing understanding and agreement with all recommendations and education provided, though further education is clearly indicated given the gravity and extent of information that was provided. In addition to the results, we discussed factors impacting effects of aspiration, to include the quantity of aspiration, the depth of aspiration (trachea or distal airways), and the physical properties of the aspirate; we discussed consequences of oropharyngeal dysphagia, to include pulmonary complications from tracheobronchial aspiration, potential for airway obstruction / asphyxiation, likelihood for inadequate oral intake because of dysphagia, higher risk of dehydration and malnutrition generally anticipated in populations with severe pharyngeal impairment, and increased risk for mortality / . DIET TEXTURE RECOMMENDATIONS: Will recommend a pureed textured (IDDSI: 4), honey thickened liquid (IDDSI: 3) diet with continued use of alternative means of nutrition; anticipated tolerance is guarded at best. RECOMMENDED COMPENSATORY STRATEGIES: All intake via ? teaspoon, reduced rate of ingestion, frequent liquid chasers, alternate bites and sips with frequent liquid chasers, seated upright at 90 degrees during PO intake, remain upright for 30-60 minutes post meal (GERD precaution), medications crushed in purees. Will consider training and implementation of the supraglottic swallow during the intervention cycle. IMAGE COUNT: [id number] Tesfaye Ewing M.A., CCC-DRILLER AND REAMER MBSImP Certified, LSVT Certified [facility] Speech-Language Pathology Department [email or web address]
== END 2018-10-31 10:30 ==
LOC: SP 10:00
PROVIDERS: Family Provider Internal Medicine; PCP Internal Medicine
DX: C09.9 Malignant neoplasm of tonsil, unspecified (principal)
CPT/HCPCS: 92526; J7120

== ENCOUNTER → 2018-11-02 | Outpatient (CLI) | payer MEDICAID, SELFPAY ==
[2018-06-12 10:03] VITALS: BMI 20.7
[2018-10-24 10:23] VITALS: BMI 20.2
--- NOTE | 2018-11-02 13:05 | RAD_ITS ---
STUDY: SWALLOWING STUDY REASON FOR EXAM: Male, 58 years old. Dysphagia. TECHNIQUE: The examination was performed with Speech Pathology in attendance. Under fluoroscopic observation, the patient ingested thin barium, thick barium, barium pudding, and barium coated cracker. FLUOROSCOPY TIME: 4:50 minutes/seconds. 4509 fluoroscopic images were obtained. RADIOLOGIST INVOLVEMENT: Radiologist was present and providing direct supervision. COMPARISON: Comparison is made with prior study dated August 03, 2018. FINDINGS: The following was observed during swallowing of the various mixtures of barium: Thin Barium: Silent aspiration with ingestion of thin liquids. Thick Barium: Silent aspiration with ingestion of nectar thickened liquids. Delayed silent aspiration with ingestion of honey thick liquid. Barium Pudding: Penetration with ingestion of pudding. Barium Coated Cracker: There was no evidence of aspiration or laryngeal penetration. RAD/Swallowing Function w/Video IMPRESSION: Sound aspiration with ingestion of thin liquids as well as nectar thickened liquids. Silent aspiration with honey thickened liquid as well. Penetration with ingestion of pudding. The swallow study findings were discussed with the patient by the speech pathologist at the conclusion of the examination. Please see speech pathology report for more information and recommendations. Electronically Signed: Dominik Chaidez, at 13:53 EDT , Service support ,
== END | disposition home or self-care (01) ==
LOC: RAD 12:53
PROVIDERS: Family Provider Internal Medicine; PCP Internal Medicine; Referring Provider Student in an Organized Health Care Education/Training Program; Visit Provider Student in an Organized Health Care Education/Training Program
DX: R13.12 Dysphagia, oropharyngeal phase (principal)
CPT/HCPCS: 74230; 92611

== ENCOUNTER 2019-02-27 12:54 | Outpatient (RCR) | payer MEDICAID, SELFPAY ==
[2018-12-05 14:52] VITALS: BMI 20.7
[2018-12-14 13:21] VITALS: BMI 18.6
== END 2019-03-23 23:59 ==
LOC: NS 12:54
PROVIDERS: Family Provider Internal Medicine; PCP Internal Medicine; Visit Provider Student in an Organized Health Care Education/Training Program
DX: R63.4 Abnormal weight loss (principal); R13.10 Dysphagia, unspecified; C09.9 Malignant neoplasm of tonsil, unspecified; Z71.3 Dietary counseling and surveillance
CPT/HCPCS: 97803

== ENCOUNTER 2019-02-27 17:30 | Outpatient (RCR) | payer MEDICAID, SELFPAY ==
[2018-12-05 14:52] VITALS: BMI 20.7
[2018-12-14 13:21] VITALS: BMI 18.6
== END 2019-02-27 19:00 | disposition home or self-care (01) ==
LOC: SP 17:30
PROVIDERS: Family Provider Internal Medicine; PCP Internal Medicine; Referring Provider Student in an Organized Health Care Education/Training Program; Visit Provider Student in an Organized Health Care Education/Training Program
DX: C09.9 Malignant neoplasm of tonsil, unspecified (principal)
CPT/HCPCS: 92526

== ENCOUNTER 2019-03-15 07:07 | Day surgery (SDC) | payer MEDICAID, SELFPAY ==
[2018-12-05 14:52] VITALS: BMI 20.7
[2019-03-12 08:41] VITALS: BMI 16.8
--- NOTE | 2019-03-15 | TONS_PTH ---
PATIENT: ANDREW STANFORD [place]: [facility] [place][id number] AGE/SX: 58/M ROOM: RE03/15/[address]: Dr. Crow Newsome MD : [id number] BED: DIS: 03/15/2019 SPEC #: [id number] RECD: 03/15/19 11:50 STATUS: PABLO REMarta #: [id number] ALEJANDRA: 03/15/19 00:[address]: Crow Newsome DEPT: SURGICAL PATHOLOGY RECD BY: Lidia Mckeon ENTERED: 03/15/19 12:19 SP TYPE: TONSILS OTHR DR: Ana Primary Care Phys Tissues: A - Tonsil, NOS B - Tonsil, NOS C - Tonsil, NOS D - Tonsil, NOS Procedures: Frozen Section (charge) Surgery Specimen Level III HEADER OPERATION: Laryngoscopy, direct operative microscope PRE-OP DIAGNOSIS: Primary malignant neoplasm of right tonsil; neck pain; edema of larynx TISSUE SUBMITTED: A - Biopsy right tonsil, B - Additional right tonsil biopsy FROZEN SECTION DIAGNOSIS A. Right tonsil, biopsy: Squamous mucosa with focal ulceration and associated inflammation. Negative for malignancy. B. Additional right tonsil tissue, biopsy: Negative for malignancy. JABIER:brigida 03/15/19 MICROSCOPIC DIAGNOSIS A. Right tonsil, biopsy: Squamous mucosa with focal ulceration and associated inflammation. Negative for malignancy. B. Additional right tonsil, biopsy: Fragments of squamous mucosa with ulceration and associated inflammation. Mild stromal atypia, favor therapy-related changes. Negative for malignancy. C. Inferior right tonsil lesion, biopsy: Squamous mucosa with ulceration and associated inflammation, negative for malignancy. Mild stromal atypia, favor therapy-related changes. Negative for malignancy. D. Superior right tonsil, biopsy: Fragments with squamous mucosa with focal necrosis, l ulceration and associated inflammation. Mild stromal atypia, favor therapy-related changes. Negative for malignancy. See Comment. JABIER:carrie 03/18/19 COMMENT Lymphoid tissue is not identified in all 4 specimens. Please make reference to previous specimen [id number] right tonsil, radical tonsillectomy with diagnosis of invasive moderate to poorly differentiated squamous cell carcinoma with mucosal ulceration. As per patient's EMR, the patient is status post chemotherapy and radiation therapy. Case has been reviewed in consultation with Dr. Alexis who concurs with the above diagnosis. IDC:[email or web address] MICROSCOPIC DESCRIPTION Slides are reviewed. GROSS DESCRIPTION A. Received fresh for frozen section consultation/diagnosis labeled with the patient's name is a specimen designated right tonsil. The specimen consists of a piece of wooten soft tissue measuring 1 x 0.3 x 0.2 cm. The entire specimen is submitted in one cassette for frozen section diagnosis. B. Received is one container labeled with the patient name and designated additional right tonsil biopsy tissue. The specimen consists of two irregular fragments of wooten soft tissue that in aggregate measure 0.7 x 0.5 x 0.1 cm and 0.5 x 0.5 x 0.1 cm. The entire specimen is submitted in one cassette. C. Received is one container labeled with the patient name and designated inferior right tonsil lesion. The specimen consists of one irregular fragment of light wooten soft tissue that measures 0.5 x 0.5 x 0.1 cm. The specimen is totally submitted in one cassette. D. Received is one container labeled with the patient name and designated superior right tonsil. The specimen consists of three irregular fragments of light wooten pink soft tissue that in aggregate measure 0.7 x 0.5 x 0.2 cm. The specimen is totally submitted in one cassette. /JABIER:carrie 03/15/19 TC:5 CPT: 26041 x4; 83829 x2
[2019-03-15 07:24] VITALS: BP 111/77; PULSE 89; RESP 18; TEMP 36.2; O2SAT 100; BMI 17.4
[2019-03-15] MEDS: Lactated Ringers 1,000 ML 75 ML IV ×3 (07:45→12:55)
[2019-03-15] MEDS: Oxymetazoline 0.05% 1 SPRAY SPRAY.BTL 15 SPRAY (11:38)
[2019-03-15] MEDS: Lidocaine 4% 50 ML Bottle (11:38)
--- NOTE | 2019-03-15 12:33 | OP.PCM_ITS ---
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 He had undergone chemo radiation therapy which had shown initial good response. Recently however he has developed progressive right- sided neck pain and PET scanning showed an area of increased uptake in the right tonsil bed consistent with viable neoplasm and return to surgery for biopsy and possible resection was offered. The risks, alternatives, potential complications, and benefits were discussed at length and any questions answered to the patient and/or caregiver's satisfaction. Witnessed informed consent was obtained in the office, and the patient and/or caregiver was agreeable to proceed. Procedure went as follows: The patient was identified in the preoperative holding and brought to the operating room, placed under general anesthesia, and intubated. When appropriate anesthesia was obtained, the head of bed was rotated and the patient prepped and draped in usual sterile fashion. A moistened gauze was then placed to protect the upper gums and the Dedo laryngoscope then introduced. Direct laryngoscopy was then carried out. The lateral posterior pharyngeal wall mucosa. The tonsils were noted to be absent. Along the right lateral pharyngeal wall there is noted to be a centrally ulcerated lesion with a rolled border approximately 2 x 3 cm in size. The medial aspect was then biopsied and sent for frozen section evaluation which showed inflammation, squamous epithelium, and inflammation. Malignancy could not be confirmed. Additional biopsies were taken from the inferior aspect of the lesion as well but again frozen section could not confirm malignancy. Given this additional inferior and superior biopsies were taken with the clinical suspicion of recurrent malignancy made as the lesion was firm, rubbery, and fixed to the lateral and posterior pharyngeal wall. This did not appear amenable to transoral resection. This did extend into the superior aspect of the piriform sinus and anteriorly to the tongue base. Bleeding was controlled with suction electrocautery. Pledgets of topical oxymetazoline were additionally placed for hemostasis. The pledgets were then removed and the patient taken out of suspension and returned to anesthesia, was revived, and extubated without complication having tolerated the procedure well. Type of Anesthesia:: General Anesthesiologist: Floyd Richardson Special Medications: none Specimen's removed: multiple biopsies of right tonsillar fossa lesion Drains: none Estimated Blood Loss (mL): 10 mL Fluids Replaced: 1000 mL Grafts/Implants Used: none - Complications none - Admit VTE Documentation VTE Present on Admission: No VTE Mechan Device Prophylaxis: SCD's VTE Pharm Prophylaxis ordered?: No
--- NOTE | 2019-03-15 12:47 | DCINST_ITS ---
Discharge Diet: No Restrictions Discharge Activity: Return to Normal Activity Call your doctor if your incision/area has: Sudden Increased Bleeding Call your doctor if you observe: Fever of 101 or Higher, Uncontrolled pain Allergies/Adverse Reactions: Allergies bee venom protein (honey bee) Allergy (Verified 03/14/19 10:14) Angioedema Medications to take at Discharge Gabapentin [Neurontin] 600 mg PO TIDCM #90 tablet 11/21/18 Magic Mouth Wash 15 ml PO Q6H PRN PRN #340 ml 02/27/19 Omeprazole 20 mg PO DAILY #30 capsule. 02/27/19 Primary Care Physician: Care Physician,No Primary [Primary Care Provider] - Test Results: Test results from this visit will be discussed in further detail at your follow- up appointment, if applicable. Please Follow Up With: Crow Newsome MD When: 2 weeks
[2019-03-15 12:53] VITALS: BP 111/77; BP 116/75; PULSE 63; RESP 18; TEMP 36.3; O2SAT 100
[2019-03-15 13:00] VITALS: BP 111/77; BP 116/80; PULSE 65; RESP 18; O2SAT 100
[2019-03-15 13:11] VITALS: BP 111/77; BP 120/78; PULSE 61; RESP 18; TEMP 36.4; O2SAT 100
--- NOTE | 2019-03-15 13:31 | SUR.PHASEII ---
called for pt ride left message
[2019-03-15 13:33] VITALS: BP 111/77
== END 2019-03-15 13:42 | disposition home or self-care (01) ==
LOC: SDC 07:09 → AC 07:10
PROVIDERS: Referring Provider Otolaryngology; Visit Provider Otolaryngology
PROC: 0CJS8ZZ Inspection of Larynx, Via Natural or Artificial Opening Endoscopic (ICD-10-PCS; CPT 31575; principal; 2019-03-15 09:25)
DX: J03.90 Acute tonsillitis, unspecified (principal); J35.8 Other chronic diseases of tonsils and adenoids; J38.4 Edema of larynx; R59.0 Localized enlarged lymph nodes; F17.200 Nicotine dependence, unspecified, uncomplicated; Z85.818 Personal history of malignant neoplasm of other sites of lip, oral cavity, and pharynx; K21.9 Gastro-esophageal reflux disease without esophagitis; Z79.899 Other long term (current) drug therapy
CPT/HCPCS: 31535; 88304; 88331; J7120

== ENCOUNTER 2022-01-10 03:39 | Emergency (ER) | payer MEDICAID, SELFPAY ==
[2018-12-05 14:52] VITALS: BMI 20.7
[2022-01-10 03:40] VITALS: BP 120/84; PULSE 93; RESP 16; TEMP 36.2; O2SAT 98; BMI 17.1
--- NOTE | 2022-01-10 03:49 | CT_ITS ---
STUDY: CT BRAIN WITHOUT CONTRAST REASON FOR EXAM: Male, 61 years old. fall, head injury RADIATION DOSAGE (If Supplied By Facility): CTDIvol = ( 44.99 ) mGy, DLP = ( 897.35 ) mGycm TECHNIQUE: Transaxial CT imaging of the brain was performed without administration of intravenous contrast material. Individualized dose optimization techniques were used for this CT. COMPARISON: No relevant priors. FINDINGS: BRAIN: No acute bleed. No edema. Mild decreased attenuation in the periventricular white matter bilaterally. Old lacunar infarcts bilateral basal ganglia. Kohler-white matter differentiation is maintained. VENTRICLES AND SULCI: Not dilated. EXTRA-AXIAL: No hemorrhage, fluid collection, or mass. CALVARIUM / SKULL BASE: Unremarkable. FACE/SINUSES: Fracture medial wall the right orbit is likely old. SOFT TISSUES: Soft tissue swelling in the left frontal/periorbital region. CT/Brain/Head without Contrast IMPRESSION: Left frontal scalp contusion. No evidence of acute intracranial injury. Chronic microvascular ischemic disease. Electronically Signed: Kim Grullon MD at 4:25 EDT ,
--- NOTE | 2022-01-10 04:25 | EDS_ITS ---
HPI History of Present Illness Chief Complaint: Fall Informant: patient Narrative Narrative: Patient 61-year-old male presenting from home after a fall. Patient states he was drinking tonight which he does regularly. He tripped and fell striking his head. He lives home alone. He used his life alert to call 911 was brought to the emergency room. Currently denies any other complaints at this time. He states he was on the floor for 10 minutes. Patient had bleeding coming from his head. Patient notes he fell about 2 weeks ago and sustained an abrasion to his left shoulder. He is unsure when his last tetanus was. No other complaints at this time. No report of any numbness or tingling. No vision changes. Patient states he would just like to go home. Patient does have a PEG tube in place. He states he last flushed approximately 1 month ago. He had it for when he had throat cancer. He does not use the PEG tube regularly. Tetanus Immunization: Unknown [facility] Medical History (Updated 01/10/22 @ 05:[address] Senait Roque DO) Anxiety Asthma HTN (hypertension) Migraines Osteoarthritis Tonsillar cancer Home Medications Magic Mouth Wash 15 ml PO Q6H PRN PRN Pain #340 mL 02/27/19 [Rx Last Taken Unknown] pentoxifylline 400 mg tablet,extended release 400 mg PO TID #90 tabs 04/08/19 [Rx Last Taken Unknown] omeprazole 20 mg capsule,delayed release 20 mg PO DAILY gastric reflux ##30 05/06/19 [Rx Last Taken Unknown] lorazepam 0.5 mg tablet 0.5 mg PO BID 09/17/19 [History Last Taken Unknown] oxycodone 5 mg tablet 10 mg PO Q6H PRN PRN Pain Or Fever 09/17/19 [History Last Taken Unknown] Allergy/AdvReac Type Severity Reaction Status Date / Time bee venom protein (honey bee) Allergy Angioedema Verified 01/10/22 03:43 Family History Mother Hypertension Other Lymphoma Surgical History History of colonoscopy History of hand surgery History of tooth extraction Hx of foot surgery Hx of tonsillectomy S/P percutaneous endoscopic gastrostomy (PEG) tube placement Social History Smoking Status: Light Smoker (<10/day) alcohol intake: current details: 2x/week ROS ROS ED Constitutional Constitutional ED: Denies chills or fever(s) Eyes Eyes: Denies change in vision ENT ENT ED: Denies ear pain, rhinorrhea or sore throat Cardiovascular Cardiovascular: Denies chest pain Respiratory/Chest Respiratory/Chest: Denies cough Gastrointestinal Gastrointestinal: Denies abdominal pain, nausea or vomiting Musculoskeletal Musculoskeletal: Denies arthralgias, back pain or neck pain Integumentary Reports Abrasions Neurologic Neurologic: Denies headache(s), paresthesias or weakness Hematologic/Lymphatic Hematologic/Lymphatic: Denies easy bleeding or easy bruising EXAM Physical Exam Const Vital Signs: 01/10/22 03:40 01/10/22 03:45 Temperature 97.2 F L Temperature Source Temporal Pulse Rate 93 Respiratory Rate 16 Respiratory Effort Normal Respiratory Depth Normal Respiratory Pattern Normal Blood Pressure 120/84 H Blood Pressure Mean 96 Pulse Ox 98 Oxygen Delivery Method Room Air Room Air Positive well developed, cachectic and unkempt General Appearance ED: unkempt, well developed, cachectic and NAD Nutritional Appearance: cachectic HEENT Reports TM's clear trauma Nose: Negative for septum abnormal Tympanic Membrane ED: Yes TM's clear Eyes PERRL and EOMs intact bilaterally Neck full ROM General: Negative for tenderness Chest Wall inspection of chest normal Resp normal respiratory effort and clear to auscultation bilaterally Cardio regular rhythm and no murmurs GI normal to inspection, nondistended, normoactive bowel sounds Extremity normal to inspection and full ROM General Extremety ED: Negative for deformity, edema or tenderness General Extremity: Negative for deformity or edema Neuro oriented x3, CN's II-XII intact bilaterally, moves all extremities and no focal motor deficits Psych Appearance: unkempt Skin Skin Narrative: 2 cm full-thickness laceration of the left lateral periorbital area just inferior to the eyebrow. No active bleeding. Healing abrasion to the left shoulder. No active bleeding and no secondary signs of infection. PROC Procedures Lacerations left eyebrow: Length: 0.79 in Depth: Skin Shape: Linear Prep: Chlorhexadine Laceration repair: Irrigated, Local (LET), Skin sutures and Wound explored Irrigated (ml): 100 Number of Sutures/Christiane: 3 Suture Information: Vicryl, Simple and 5-0 Comment: There was strip of the devitalized tissue in the middle of the laceration. 5-0 absorbable Vicryl used. Patient Toller procedure well. No immediate complications. MDM MDM MDM Narrative Medical decision making narrative: Patient evaluated for head injury. Patient had a mechanical fall. Patient was drinking tonight. He is currently acting appropriate. He called 911 himself. He is not have any focal neurologic deficits. He wants to go home pretty much immediately upon arrival. While in the emergency room he becomes more oriented. CT the brain does not show any acute intracranial process. No concern for any other bony abnormalities or fractures. Laceration repair performed. Initially patient was quite resistant to it but then he finally agreed when I told him we would use absorbable sutures. See procedure note. Tetanus is updated. Patient discharged home in stable condition. Patient states he wants to go home and is not interested in any type of placement or social work consult. Radiography Diagnostic Testing: Clinical Impression(s) from Imaging Studies Brain CT 01/10/22 03:49 IMPRESSION: Left frontal scalp contusion. No evidence of acute intracranial injury. Chronic microvascular ischemic disease. Electronically Signed: Kim Grullon MD at 4:25 EDT , Discharge Plan Triage Chief Complaint: Fall ED Provider: Senait Roque Dx/Rx/DC Orders Clinical Impression: Fall from slip, trip, or stumble, Closed head injury, Laceration of eyebrow, right, Need for loxqoznmyi-uhffosz-eckcshiol (Tdap) vaccine Instructions: ED Head Injury (Adult), ED Laceration: All Closures Prescriptions: No Action Magic Mouth Wash 15 ml PO Q6H PRN PRN (Reason: Pain) Qty: 340 0RF Rx Instructions: Pharmacist: Compound with equal parts DiphenhydrAMINE, Mylanta, and Lidocaine Viscous. pentoxifylline 400 MG tablet 400 mg PO TID Qty: 90 5RF Rx Instructions: take one tab PO tid omeprazole 20 MG capsule,delayed release(DR/EC) 20 mg PO DAILY Qty: 30 0RF Rx Instructions: take 1 tab PO qd lorazepam 0.5 MG tablet 0.5 mg PO BID oxycodone 5 MG tablet 10 mg PO Q6H PRN PRN (Reason: Pain Or Fever) Primary Care Provider: Blayne Hernandez Referrals: Blayne Hernandez MD [Primary Care Provider] - Activity Restrictions/Additional Instructions: Absorbable sutures were placed. They will take a 10 to 14 days to fall out. If you would like them removed sooner than that they can be removed by a medical provider after 5 days. Disposition Disposition: Home, Self Care
[2022-01-10] MEDS: Lidocaine/Epi/Tetracaine 50 ML 1 APPLIC TOPICAL (05:05)
[2022-01-10] MEDS: Diphth,Pertuss(Acell),Tet Vac 0.5 ML Vial IM (05:06)
== END 2022-01-10 06:49 | disposition home or self-care (01) ==
PROVIDERS: Emergency Provider Emergency Medicine; PCP Internal Medicine; Visit Provider Emergency Medicine
DX: S09.90XA Unspecified injury of head, initial encounter (principal); Z93.1 Gastrostomy status; S01.111A Laceration without foreign body of right eyelid and periocular area, initial encounter; F17.200 Nicotine dependence, unspecified, uncomplicated; Z23 Encounter for immunization; W01.10XA Fall on same level from slipping, tripping and stumbling with subsequent striking against unspecified object, initial encounter
CPT/HCPCS: 12011; 70450; 90471; 90715; 99285

== ENCOUNTER 2022-01-31 21:53 | Emergency (ER) | payer MEDICAID, SELFPAY ==
[2018-12-05 14:52] VITALS: BMI 20.7
[2022-01-31 21:55] VITALS: BP 84/65; PULSE 108; RESP 22; TEMP 36.6; O2SAT 97; BMI 16.4
[2022-01-31 22:32] VITALS: BP 104/80; PULSE 109; RESP 16; O2SAT 97
--- NOTE | 2022-01-31 22:34 | ED.RN ---
Pt arrives to ED after several falls. Pt denies injury, states she just slid to the ground each time. No injury noted by this RN. Pt states he is a hospice patient. Hospice contacted and confirmed he is an active patient. They also confirmed patient is a DNRCC and has no POA. Pt is alert to self and place. Spoke with Dr Croft and Hospice and agree patient does not require further testing in the ED but is not safe to go home by himself. This RN spoke with daughter at bedside and called sister who is primary contact for hospice and neither are able to help care for patient. hospice states he meets criteria for admission to their facility for respite care. italo Santoyo and sister Perlita all are agreeable to plan. Hospice nurse to come to ED to evaluate patient and set up transport to their [facility].
--- NOTE | 2022-01-31 22:46 | EX.ED.DYSGE1 ---
HPI History of Present Illness Chief Complaint: Fall Narrative Narrative: Patient is a 61-year-old male with history of metastatic cancer. He is a DNR comfort care only on hospice care. He states that he felt weak today and fell twice. The first time EMS came to help him up and he refused any type of further treatment. However after the second event today he did agree to come to the hospital for evaluation. The patient denies any pain from the fall. However based on his metastatic cancer generalized weakness with failure to thrive and recurrent falls today he presents for evaluation [facility] Medical History (Updated 01/31/22 @ 23:[address] Kyree Croft DO) Anxiety Asthma HTN (hypertension) Migraines Osteoarthritis Tonsillar cancer Home Medications Magic Mouth Wash 15 ml PO Q6H PRN PRN Pain #340 mL 02/27/19 [Rx Last Taken Unknown] pentoxifylline 400 mg tablet,extended release 400 mg PO TID #90 tabs 04/08/19 [Rx Last Taken Unknown] omeprazole 20 mg capsule,delayed release 20 mg PO DAILY gastric reflux ##30 05/06/19 [Rx Last Taken Unknown] lorazepam 0.5 mg tablet 0.5 mg PO BID 09/17/19 [History Last Taken Unknown] oxycodone 5 mg tablet 10 mg PO Q6H PRN PRN Pain Or Fever 09/17/19 [History Last Taken Unknown] Allergy/AdvReac Type Severity Reaction Status Date / Time bee venom protein (honey bee) Allergy Angioedema Verified 01/31/22 21:59 Family History Mother Hypertension Other Lymphoma Surgical History History of colonoscopy History of hand surgery History of tooth extraction Hx of foot surgery Hx of tonsillectomy S/P percutaneous endoscopic gastrostomy (PEG) tube placement Social History Smoking Status: Light Smoker (<10/day) alcohol intake: current details: 2x/week ROS ROS ED Constitutional Constitutional ED: Reports weight loss; Denies chills or fever(s) Eyes Eyes: Denies change in vision ENT ENT ED: Denies sore throat Cardiovascular Cardiovascular: Denies chest pain Respiratory/Chest Respiratory/Chest: Denies cough or dyspnea Gastrointestinal Gastrointestinal: Denies abdominal pain Genitourinary Genitourinary ED: Denies dysuria Musculoskeletal Musculoskeletal: Denies back pain, myalgias or neck pain Integumentary Denies rash Neurologic Neurologic: Denies headache(s) Hematologic/Lymphatic Hematologic/Lymphatic: Reports easy bleeding and easy bruising EXAM Physical Exam Const Vital Signs: 01/31/22 21:55 01/31/22 22:32 01/31/22 22:33 Temperature 98 F Temperature Source Temporal Pulse Rate 108 H 109 H Respiratory Rate 22 H 16 Respiratory Effort Normal Non-Labored Respiratory Pattern Normal Blood Pressure 84/65 L 104/80 Blood Pressure Mean 71 88 Pulse Ox 97 97 Oxygen Delivery Method Room Air Room Air 01/31/22 23:03 01/31/22 23:10 Temperature Temperature Source Pulse Rate 104 H 97 Respiratory Rate 12 16 Respiratory Effort Respiratory Pattern Blood Pressure 103/69 103/69 Blood Pressure Mean 80 Pulse Ox 98 97 Oxygen Delivery Method Room Air Positive cachectic and unkempt General Appearance ED: unkempt and cachectic Nutritional Appearance: cachectic HEENT Reports dry mucous membranes HEENT Narrative: No signs of depressed or basilar skull fracture Mouth ED: Yes dry mucous membranes Mouth: dry mucous membranes Eyes PERRL and EOMs intact bilaterally Neck supple Neck Narrative: No bony deformity or step-off of the cervical spine no midline pain on palpation Chest Wall palpation of chest normal Resp normal respiratory effort and clear to auscultation bilaterally Cardio regular rate and regular rhythm GI non-tender and non-distended GI Narrative: PEG tube in place without surrounding soft tissue changes to suggest infection Auscultation: hypoactive bowel sounds Palpation: soft Back/Spine Back/Spine Narrative: No bony deformity or step-off of the thoracic or lumbar spine no midline pain on palpation Extremity normal to inspection Extremity Narrative: Pelvis is stable no shortening or external rotation of either lower extremity Neuro oriented x3 and CN's II-XII intact bilaterally Sensorium / Orientation: alert Psych mental status grossly normal Appearance: unkempt Skin no rashes or lesions noted Skin Narrative: Skin turgor is increased MDM MDM MDM Narrative Medical decision making narrative: Patient presented to the ER mildly hypotensive and tachycardic. However he is a DNR comfort care secondary to metastatic cancer on hospice. Hospice was contacted and does agree that his recent vitals are consistent with his presentation in the ER. The patient has no physical exam findings of trauma and no report of pain. At this time as he is a DNR comfort care only I do not feel he warrants any further work-up. However as he appears to be unable to care for himself and family is not able to be with him hospice was contacted and does agree to placement in respite care at this time. Discharge Plan Triage Chief Complaint: Fall ED Provider: Kyree Croft Dx/Rx/DC Orders Clinical Impression: Adult failure to thrive, Generalized muscle weakness, Metastatic cancer Instructions: Cancer Overview Prescriptions: No Action Magic Mouth Wash 15 ml PO Q6H PRN PRN (Reason: Pain) Qty: 340 0RF Rx Instructions: Pharmacist: Compound with equal parts DiphenhydrAMINE, Mylanta, and Lidocaine Viscous. pentoxifylline 400 MG tablet 400 mg PO TID Qty: 90 5RF Rx Instructions: take one tab PO tid omeprazole 20 MG capsule,delayed release(DR/EC) 20 mg PO DAILY Qty: 30 0RF Rx Instructions: take 1 tab PO qd lorazepam 0.5 MG tablet 0.5 mg PO BID oxycodone 5 MG tablet 10 mg PO Q6H PRN PRN (Reason: Pain Or Fever) Primary Care Provider: Blayne Hernandez Referrals: Blayne Hernandez MD [Primary Care Provider] - Disposition Disposition: Hospice in Medical Facility
[2022-01-31 23:03] VITALS: BP 103/69; PULSE 104; RESP 12; O2SAT 98
[2022-01-31 23:10] VITALS: BP 103/69; PULSE 97; RESP 16; O2SAT 97
--- NOTE | 2022-01-31 23:57 | ED.RN ---
Eri RN from hospice arrives at bedside.
== END 2022-02-01 00:48 | disposition hospice, inpatient (51) ==
PROVIDERS: Emergency Provider Emergency Medicine; PCP Internal Medicine; Visit Provider Emergency Medicine
DX: R62.7 Adult failure to thrive (principal); C79.9 Secondary malignant neoplasm of unspecified site; M62.81 Muscle weakness (generalized); F17.200 Nicotine dependence, unspecified, uncomplicated
CPT/HCPCS: 99284

== ENCOUNTER 2022-02-04 20:18 | Emergency (ER) | payer MEDICAID, SELFPAY ==
[2018-12-05 14:52] VITALS: BMI 20.7
[2022-02-04 20:20] VITALS: BP 99/74; PULSE 108; RESP 14; TEMP 36.3; O2SAT 90; BMI 17.6
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
[2022-02-05 00:59] VITALS: BP 100/68; PULSE 84; RESP 15; O2SAT 97
== END 2022-02-05 02:23 | disposition home or self-care (01) ==
PROVIDERS: Emergency Provider Emergency Medicine; PCP Internal Medicine; Visit Provider Emergency Medicine
DX: F10.129 Alcohol abuse with intoxication, unspecified (principal); F17.210 Nicotine dependence, cigarettes, uncomplicated; Z66 Do not resuscitate
CPT/HCPCS: 99283